=== PATIENT | male | born 1960 | race African-American/Black ===

== ENCOUNTER 2017-03-22 10:21 | Emergency (ER) | payer MEDICARE ==
--- NOTE | 2017-03-22 11:16 | RAD ---
SINGLE VIEW OF THE CHEST: COMPARISON: 03/11/17. HISTORY: Chest pain. FINDINGS: A single view of the chest shows an enlarged but stable cardiomediastinal silhouette. The pacemaker is unchanged in position. There is no evidence of consolidation, mass, or pleural effusion. Degen erative changes are seen in the spine. IMPRESSION: No evidence of acute cardiopulmonary disease. POS: [facility]
[2017-03-22 11:26] LABS: Hematocrit 31.5 % (42.0-52.0); Red Blood Cell (RBC) Count 3.81 mill/uL (4.70-6.10); White Blood Cell (WBC) Count 6.1 thou/uL (4.8-10.8)
[2017-03-22 11:36] LABS: PTT 31.2 SEC (22.9-36.1); Prothrombin Time 17.2 SEC (12.0-14.7)
[2017-03-22 11:44] LABS: Hypochromia SLIGHT = 6-15 cells (100X) (0-5/hpf); Neutrophil 72 % (42-75); Polychromasia SLIGHT = 2-3 cells (100X) (0-2/hpf)
[2017-03-22 11:50] LABS: ALT (SGPT) Less than 7 U/L (8-55); AST (SGOT) 23 U/L (5-34); Alkaline Phosphatase 61 U/L (40-150); Anion Gap 15 mmol/L (10-20); BUN (Urea Nitrogen) 18 mg/dL (8.4-25.7); Bilirubin, Total 1.1 mg/dL (0.2-1.2); CK (CPK) 288 U/L (30-200); Calc. Creatinine Clearance 0 mL/min (70-130); Calcium 9.3 mg/dL (7.8-10.44); Carbon Dioxide 23 mmol/L (22-29); Chloride 105 mmol/L (98-107); Estimated GFR-MDRD 86; Globulin 3.8 g/dL (2.4-3.5); Lipase 16 U/L (8-78); Protein, Total 7.7 g/dL (6.0-8.3)
[2017-03-22 11:55] LABS: Troponin I 0.026 ng/mL (< 0.028)
[2017-03-22] MEDS ORDERED: Acetaminophen 500 MG TAB ONE (12:46)
== END 2017-03-22 12:40 | disposition home or self-care (01) ==
LOC: ERS 10:21
DX: I50.9 Heart failure, unspecified (principal); I20.8 Other forms of angina pectoris; J44.9 Chronic obstructive pulmonary disease, unspecified; E11.9 Type 2 diabetes mellitus without complications; K21.9 Gastro-esophageal reflux disease without esophagitis; F17.220 Nicotine dependence, chewing tobacco, uncomplicated; Z79.84 Long term (current) use of oral hypoglycemic drugs; Z79.899 Other long term (current) drug therapy
CPT/HCPCS: 36415; 71010; 80053; 82550; 82553; 83690; 83880; 84484; 85025; 85610; 85730; 93005

== ENCOUNTER 2017-04-20 10:52 | Inpatient (IN) | payer MEDICARE, OTHER ==
[2017-04-20 11:12] LABS: #Eosinphils 0.1 thou/uL (0.0-0.7); #Lymphocytes 0.9 thou/uL (1.20-3.40); #Monocytes 0.8 thou/uL (0.11-0.59); #Neutrophils 3.5 thou/uL (1.40-6.50); %Basophils 0.5 % (0.0-1.0); %Lymphocytes 17.7 % (21.0-51.0); %Monocytes 14.3 % (0.0-10.0); Hematocrit 36.7 % (42.0-52.0); Mean Platelet Volume 8.9 fL (7.4-10.4); Red Blood Cell (RBC) Count 4.27 mill/uL (4.70-6.10); White Blood Cell (WBC) Count 5.3 thou/uL (4.8-10.8)
--- NOTE | 2017-04-20 11:30 | RAD ---
FRONTAL VIEW CHEST: INDICATION: Chest pain. COMPARISON: 03/22/17. FINDINGS: There is enlargement of the cardiac silhouette with bilateral vascular congestion. Component of a m ild right pleural effusion is not excluded. No significant left effusion or discrete pneumothorax. Left-sided AICD is present with battery pack obscuring the left lower lung zone. IMPRESSION: Findings consistent with congestive heart failure. Correlate clinically. POS: [facility]
[2017-04-20 11:33] LABS: ALT (SGPT) Less than 7 U/L (8-55); AST (SGOT) 18 U/L (5-34); Alkaline Phosphatase 59 U/L (40-150); Anion Gap 12 mmol/L (10-20); BUN (Urea Nitrogen) 15 mg/dL (8.4-25.7); Bilirubin, Total 1.3 mg/dL (0.2-1.2); CK (CPK) 126 U/L (30-200); Calc. Creatinine Clearance 0 mL/min (70-130); Calcium 9.5 mg/dL (7.8-10.44); Carbon Dioxide 24 mmol/L (22-29); Chloride 107 mmol/L (98-107); Estimated GFR-MDRD 86; Globulin 3.8 g/dL (2.4-3.5); Lipase 11 U/L (8-78); Protein, Total 7.8 g/dL (6.0-8.3)
[2017-04-20 11:38] LABS: Troponin I 0.031 ng/mL (< 0.028)
[2017-04-20] MEDS ORDERED: Nitroglycerin 0.4 MG TAB (25 Tab Bottle) ONE (11:41)
[2017-04-20] MEDS ORDERED: Morphine 2 MG/ML SYRINGE ONE (12:20)
[2017-04-20] MEDS ORDERED: Furosemide 40 MG/4 ML VIAL ONE (12:20)
[2017-04-20] MEDS ORDERED: Dextrose 50% Abboject 50 ML SYRINGE SLOW IVP PRN (13:27)
[2017-04-20] MEDS ORDERED: HumaLOG 300 UNITS/3 ML VIAL SC PRN (13:27)
[2017-04-20] MEDS ORDERED: Dextrose 5% in Water 1,000 ML IV PRN (13:27)
[2017-04-20] MEDS: Furosemide 40 MG/4 ML VIAL SLOW IVP SCH (14:29)
[2017-04-20 14:32] VITALS: BMI 31.8
[2017-04-20 15:01] LABS: Troponin I 0.057 ng/mL (< 0.028)
--- NOTE | 2017-04-20 15:26 | HP ---
REASON FOR ADMISSION: CHF exacerbation, chest pain. HISTORY OF PRESENTING ILLNESS: The patient gives history of feeling bad from last 1 week or so. He has been having exertional shortness of breath. The patient also developed retrosternal chest pain with radiation to left upper shoulder. He also mentions that he was hospitalized at [facility] a month back for CHF exacerbation. He states his ejection fraction is around 15%. Mr. Morris states that he is compliant with medications, but not so much with diet. He also uses oxygen at home 2 liters during night. No complaints of palpitations or PND. Currently, he is comfortable at 30 degrees head end elevation on the ER [facility]. No complaints of cough or expectoration. The patient continues to dip tobacco, but does not smoke. PAST MEDICAL AND SURGICAL HISTORY: History of CHF with recent ejection fraction of 15% per patient. He has history of nonischemic cardiomyopathy with AICD, chronic respiratory failure on home oxygen therapy, COPD, obstructive sleep apnea, history of DVT, history of PE, morbid obesity, hypertension, dyslipidemia, chronic anemia, diabetes mellitus type 2, GERD, history of esophageal dilatation x4, colonoscopy, previous cardiac catheterization, surgery for his kidney stones, history of colon resection, and history of polyp removal. CURRENT MEDICATIONS: Lasix 40 mg p.o. daily, lisinopril 20 mg p.o. daily, Protonix 40 mg p.o. daily, digoxin 0.125 mg p.o. daily, glipizide 5 mg p.o. twice daily, Coreg 25 mg twice daily, Ultram 50 mg q.6 hourly p.r.n., [place] p.r.n. for pain, eplerenone 50 mg daily. ALLERGIES: No known drug allergies. PERSONAL HISTORY: Dips tobacco, does not abuse alcohol or drugs. Lives with his . FAMILY HISTORY: Both parents have had history of diabetes and coronary artery disease. Father has history of prostate cancer. Both are living. REVIEW OF SYSTEMS: The following complete review of systems was negative, unless otherwise mentioned in the HPI or below: Constitutional: Weight loss or gain, ability to conduct usual activities. Skin: Rash, itching. Eyes: Double vision, pain. ENT/Mouth: Nose bleeding, neck stiffness, pain, tenderness. Cardiovascular: Palpitations, dyspnea on exertion, orthopnea. Respiratory: Shortness of breath, wheezing, cough, hemoptysis, fever or night sweats. Gastrointestinal: Poor appetite, abdominal pain, heartburn, nausea, vomiting, constipation, or diarrhea. Genitourinary: Urgency, frequency, dysuria, nocturia. Musculoskeletal: Pain, swelling. Neurologic/Psychiatric: Anxiety, depression. Allergy/Immunologic: Skin rash, bleeding tendency. PHYSICAL EXAMINATION: GENERAL: The patient is a 56-year-old male who is currently not in any acute distress. VITAL SIGNS: Blood pressure 124/86, pulse 76 per minute, respiratory rate 20 per minute, temperature 97.7 degrees Fahrenheit, and saturating 93% on room air. NECK: Supple. There is elevated JVD. EYES: Extraocular muscles intact. Pupils reacting to light. ORAL CAVITY: Mucous membranes are moist. No exudates or congestion. CARDIOVASCULAR SYSTEM: S1, S2 heard. Regular rhythm. RESPIRATORY SYSTEM: Air entry 1+ bilateral. Scattered rales plus bilaterally. ABDOMEN: Soft, bowel sounds heard. No tenderness, rigidity or guarding. EXTREMITIES: No peripheral edema or calf tenderness. VASCULAR SYSTEM: Peripheral pulses 1+ bilateral, no ischemic ulcerations or gangrene. CENTRAL NERVOUS SYSTEM: No gross focal deficits seen. Patient is alert, awake , and oriented x3. PSYCHIATRIC SYSTEM: The patient's mood is euthymic. No hallucinations or delusions. LABORATORY DATA AND X-RAY FINDINGS: White count of 5.3, hemoglobin and hematocrit 11 and 36, platelet count is 185, MCV is 86. Digoxin level is 1.40. Albumin is 4.0. Troponin I is indeterminate at 0.03, CK-MB 1.6, BNP is 2171, BUN is 15, creatinine 1.0, glucose 155. Liver enzymes within normal limits. Chest x-ray done shows cardiomegaly with pulmonary vascular congestion. EKG done shows paced rhythm at 83 beats per minute with LBBB. CLINICAL IMPRESSION AND PLAN: The patient will be admitted to telemetry for acute on chronic congestive heart failure exacerbation with systolic dysfunction. Patient has known ejection fraction of around 15%. He will be on Lasix 40 mg IV q.[address] him on small doses of Coreg and lisinopril to accommodate for diuresis. We will continue his glipizide along with Accu-Chek coverage. We will also continue his digoxin, Lipitor, aspirin, eplerenone, vitamin B12, ferrous sulfate, folic acid, and gabapentin as before. Patient was counseled with regards to compliance with diet. We will continue to closely monitor him on telemetry floor. Code status is FULL. MTDD
[2017-04-20 17:57] LABS: Troponin I 0.043 ng/mL (< 0.028)
[2017-04-20] MEDS ORDERED: Nitroglycerin 2% Ointment 1 INCH/1 GM Packet TOP SCH ×2 (18:00)
[2017-04-20] MEDS: Acetaminophen 325 MG TAB PO PRN (18:05)
[2017-04-20] MEDS: Ipratropium Bromide 2.5 ml Neb NEB SCH ×2 (19:22→23:24)
[2017-04-20] MEDS: Famotidine 20 MG TAB PO SCH (20:44)
[2017-04-20] MEDS: Carvedilol 6.25 MG TAB PO SCH (20:44)
[2017-04-20] MEDS ORDERED: Morphine 2 MG/ML SYRINGE SLOW IVP SCH (23:45)
[2017-04-21 05:20] LABS: Anion Gap 12 mmol/L (10-20); BUN (Urea Nitrogen) 13 mg/dL (8.4-25.7); Calc. Creatinine Clearance 119 mL/min (70-130); Calcium 9.3 mg/dL (7.8-10.44); Carbon Dioxide 28 mmol/L (22-29); Chloride 103 mmol/L (98-107); Estimated GFR-MDRD 90
[2017-04-21] MEDS: Furosemide 40 MG/4 ML VIAL SLOW IVP SCH ×2 (05:45→14:18)
[2017-04-21 05:51] LABS: Mean Platelet Volume 9.5 fL (7.4-10.4); Neutrophil 57 % (42-75); Reactive Lymphocytes 3 % (0-10); Red Blood Cell (RBC) Count 4.38 mill/uL (4.70-6.10); White Blood Cell (WBC) Count 5.8 thou/uL (4.8-10.8)
[2017-04-21] MEDS: Ipratropium Bromide 2.5 ml Neb NEB SCH ×5 (06:59→23:24)
[2017-04-21] MEDS: Acetaminophen 325 MG TAB PO PRN (08:43)
[2017-04-21] MEDS: Ferrous Sulfate 325 MG TAB PO SCH (08:44)
[2017-04-21] MEDS ORDERED: HYDROcodone/Acetaminophen 10/325 mg Tablet PO PRN (08:46)
[2017-04-21] MEDS: Potassium Chloride 20 MEQ TAB PO SCH ×2 (08:46→18:12)
[2017-04-21] MEDS: Atorvastatin Calcium 20 MG TAB PO SCH (08:47)
[2017-04-21] MEDS: Carvedilol 6.25 MG TAB PO SCH ×2 (08:47→19:53)
[2017-04-21] MEDS: Cyanocobalamin (Vitamin B-12) 1,000 MCG TAB PO SCH (08:48)
[2017-04-21] MEDS: Digoxin 0.25 MG TAB PO SCH (08:49)
[2017-04-21] MEDS: Enoxaparin Sodium 40 MG/0.4 ML SYRINGE SC SCH (08:50)
[2017-04-21] MEDS: Folic Acid 1 MG TAB PO SCH (08:50)
[2017-04-21] MEDS: Famotidine 20 MG TAB PO SCH ×2 (08:50→19:53)
[2017-04-21] MEDS: Lisinopril 2.5 MG TAB PO SCH (08:51)
[2017-04-21] MEDS: Gabapentin 300 MG CAP PO SCH (08:51)
--- NOTE | 2017-04-21 09:57 | PDOC.PN ---
- Subjective Encounter Start Date: 04/21/17 Encounter Start Time: 08:50 Subjective: has retrosternal burning pain -: no palp or sob - Objective Resuscitation Status: Resuscitation Status FULL:Full Resuscitation MAR Reviewed: Yes Vital Signs & Weight: Vital Signs (12 hours) Temp Pulse Resp BP BP Pulse Ox 04/21/17 08:51 64 04/21/17 08:49 64 04/21/17 08:47 145/76 H 04/21/17 08:40 97.8 F 64 20 145/76 H 98 04/21/17 06:58 100 04/21/17 06:56 69 12 04/21/17 04:00 97.6 F 66 18 112/69 04/20/17 23:23 99 Weight Weight 223 lb I&O: 04/20/17 04/21/17 04/22/17 06:59 06:59 06:59 Intake Total 120 Output Total 1475 Balance -1355 Result Diagrams: 04/21/17 04:18 04/21/17 04:18 Additional Labs: Accuchecks 04/21/17 04/20/17 04/20/17 05:44 20:43 16:37 POC Glucose 102 110 90 Phys Exam - Physical Examination HEENT: PERRLA, moist MMs Neck: no JVD, supple Respiratory: no wheezing rales+ Cardiovascular: RRR, no significant murmur Gastrointestinal: soft, non-tender, positive bowel sounds Musculoskeletal: no edema, pulses present Neurological: non-focal, moves all 4 limbs Psychiatric: A&O x 3 Dx/Plan (1) Acute on chronic systolic CHF (congestive heart failure) Code(s): I50.23 - ACUTE ON CHRONIC SYSTOLIC (CONGESTIVE) HEART FAILURE Status : Acute (2) Chest pain Code(s): R07.9 - CHEST PAIN, UNSPECIFIED Status: Acute Comment: non cardiac , likely due to gerd (3) Anemia, normocytic normochromic Code(s): D64.9 - ANEMIA, UNSPECIFIED Status: Chronic (4) COPD (chronic obstructive pulmonary disease) Status: Chronic Qualifiers: COPD type: chronic bronchitis Chronic bronchitis type: unspecified Qualified Code(s): J42 - Unspecified chronic bronchitis (5) HLD (hyperlipidemia) Code(s): E78.5 - HYPERLIPIDEMIA, UNSPECIFIED Status: Chronic Qualifiers: Hyperlipidemia type: unspecified Qualified Code(s): E78.5 - Hyperlipidemia , unspecified (6) HTN (hypertension) Code(s): I10 - ESSENTIAL (PRIMARY) HYPERTENSION Status: Chronic Qualifiers: Hypertension type: essential hypertension Qualified Code(s): I10 - Essential (primary) hypertension (7) Obesity (BMI 30.0-34.9) Code(s): E66.9 - OBESITY, UNSPECIFIED Status: Chronic - Plan gentle iv diuresis -: dc plan in 24hrs -: pepcid/protonix for retrosternal burning pain -: may give maalox prn -: to amb as tolerated * . Review of Systems - Medications/Allergies Allergies/Adverse Reactions: Allergies Allergy/AdvReac Type Severity Reaction Status Date / Time chicken derived Allergy Verified 09/24/16 07:12 No Known Drug Allergies Allergy Verified 03/11/17 07:49 Medications: Current Medications Acetaminophen (Tylenol) 650 mg PO Q4H PRN PRN Reason: Headache/Fever or Pain Last Admin: 04/21/17 08:43 Dose: 650 mg Hydrocodone Bitart/Acetaminophen ([place] 10/325) 1 tab PO Q6H PRN PRN Reason: PAIN SCAL 1-5 Hydrocodone Bitart/Acetaminophen ([place] 10/325) 2 tab PO Q6H PRN PRN Reason: PAIN SCALE 6-10 Albuterol/Ipratropium (Duoneb) 3 ml NEB [id number] [facility] Last Admin: 04/21/17 06:56 Dose: 3 ml Aspirin (Aspirin Chewable) 81 mg PO DAILY [facility] Last Admin: 04/21/17 08:47 Dose: 81 mg Atorvastatin Calcium (Lipitor) 20 mg PO DAILY [facility] Last Admin: 04/21/17 08:47 Dose: 20 mg Carvedilol (Coreg) 6.25 mg PO BID [facility] Last Admin: 04/21/17 08:47 Dose: 6.25 mg Cyanocobalamin (Vitamin B-12) 1,000 mcg PO DAILY [facility] Last Admin: 04/21/17 08:48 Dose: 1,000 mcg Dextrose/Water (Dextrose 50%) 25 gm SLOW IVP PRN PRN PRN Reason: Hypoglycemia Digoxin (Lanoxin) 0.25 mg PO DAILY [facility] Last Admin: 04/21/17 08:49 Dose: 0.25 mg Enoxaparin Sodium (Lovenox) 40 mg SC 0900 [facility] Last Admin: 04/21/17 08:50 Dose: 40 mg Famotidine (Pepcid) 20 mg PO BID [facility] Last Admin: 04/21/17 08:50 Dose: 20 mg Ferrous Sulfate (Feosol) 325 mg PO QAM-[facility] Last Admin: 04/21/17 08:44 Dose: 325 mg Folic Acid (Folvite) 1 mg PO DAILY [facility] Last Admin: 04/21/17 08:50 Dose: 1 mg Furosemide (Lasix) 40 mg SLOW IVP 0600,1400 [facility] Last Admin: 04/21/17 05:45 Dose: 40 mg Gabapentin (Neurontin) 600 mg PO DAILY [facility] Last Admin: 04/21/17 08:51 Dose: 600 mg Glipizide (Glucotrol Xl) 5 mg PO BID-[facility] Last Admin: 04/21/17 08:45 Dose: 5 mg Glucagon (Glucagon) 1 mg IM PRN PRN PRN Reason: Hypoglycemia Dextrose/Water (D5w) 1,000 mls @ 0 mls/hr IV .Q0M PRN; As Directed PRN Reason: Hypoglycemia Insulin Human Lispro (Humalog) 0 units SC .MODERATE SLIDING SC PRN PRN Reason: Moderate Correctional Scale Ipratropium [place] (Atrovent) 2.5 ml NEB [id number] [facility] Last Admin: 04/21/17 06:59 Dose: Not Given Lisinopril (Zestril) 2.5 mg PO DAILY [facility] Last Admin: 04/21/17 08:51 Dose: 2.5 mg Eplerenone 50 Mg 0 each PO DAILY [facility] Potassium Chloride (K-Dur) 40 meq PO BID-[facility] Last Admin: 04/21/17 08:46 Dose: 40 meq
[2017-04-21] MEDS ORDERED: Mag-Al Plus 1200 MG/1200 MG/120 MG/30 ML UDCUP PO PRN (09:59)
[2017-04-21] MEDS: HYDROcodone/Acetaminophen 10/325 mg Tablet PO PRN (18:13)
[2017-04-22] MEDS: Furosemide 40 MG/4 ML VIAL SLOW IVP SCH (04:58)
[2017-04-22] MEDS: HYDROcodone/Acetaminophen 10/325 mg Tablet PO PRN (04:58)
[2017-04-22] MEDS: Ipratropium Bromide 2.5 ml Neb NEB SCH (06:54)
[2017-04-22] MEDS: Potassium Chloride 20 MEQ TAB PO SCH (08:12)
[2017-04-22] MEDS: Gabapentin 300 MG CAP PO SCH (08:12)
[2017-04-22] MEDS: Ferrous Sulfate 325 MG TAB PO SCH (08:12)
[2017-04-22] MEDS: Atorvastatin Calcium 20 MG TAB PO SCH (08:12)
[2017-04-22] MEDS: Folic Acid 1 MG TAB PO SCH (08:12)
[2017-04-22] MEDS: Carvedilol 6.25 MG TAB PO SCH (08:13)
[2017-04-22] MEDS: Famotidine 20 MG TAB PO SCH (08:13)
[2017-04-22] MEDS: Lisinopril 2.5 MG TAB PO SCH (08:13)
[2017-04-22] MEDS: Cyanocobalamin (Vitamin B-12) 1,000 MCG TAB PO SCH (08:13)
[2017-04-22] MEDS: Enoxaparin Sodium 40 MG/0.4 ML SYRINGE SC SCH (08:14)
[2017-04-22] MEDS: Digoxin 0.25 MG TAB PO SCH (08:14)
--- NOTE | 2017-04-22 10:14 | PDOC.PN ---
- Subjective Encounter Start Date: 04/22/17 Encounter Start Time: 07:45 Subjective: no sob, is amb well - Objective Resuscitation Status: Resuscitation Status FULL:Full Resuscitation MAR Reviewed: Yes Vital Signs & Weight: Vital Signs (12 hours) Temp Pulse Resp BP BP Pulse Ox 04/22/17 08:14 63 04/22/17 08:13 63 124/71 04/22/17 08:00 97.8 F 63 17 124/71 94 L 04/22/17 07:39 100 04/22/17 07:37 68 20 100 04/22/17 04:05 98 04/22/17 04:00 97.9 F 67 18 128/77 04/21/17 23:22 98 Weight Weight 221 lb I&O: 04/21/17 04/22/17 04/23/17 06:59 06:59 06:59 Intake Total 120 1160 Output Total 1475 1850 Balance -0128 -916 Result Diagrams: 04/21/17 04:18 04/21/17 04:18 Additional Labs: Accuchecks 04/22/17 04/21/17 04/21/17 05:11 20:29 17:35 POC Glucose 130 H 120 H 98 04/21/17 11:37 POC Glucose 99 Phys Exam - Physical Examination HEENT: PERRLA, moist MMs Neck: no JVD, supple Respiratory: no wheezing, no rales Cardiovascular: RRR, no significant murmur Gastrointestinal: soft, non-tender, positive bowel sounds Musculoskeletal: no edema, pulses present Neurological: non-focal, moves all 4 limbs Psychiatric: A&O x 3 Dx/Plan (1) Acute on chronic systolic CHF (congestive heart failure) Code(s): I50.23 - ACUTE ON CHRONIC SYSTOLIC (CONGESTIVE) HEART FAILURE Status : Acute (2) Chest pain Code(s): R07.9 - CHEST PAIN, UNSPECIFIED Status: Acute Comment: non cardiac , likely due to gerd (3) Anemia, normocytic normochromic Code(s): D64.9 - ANEMIA, UNSPECIFIED Status: Chronic (4) COPD (chronic obstructive pulmonary disease) Status: Chronic Qualifiers: COPD type: chronic bronchitis Chronic bronchitis type: unspecified Qualified Code(s): J42 - Unspecified chronic bronchitis (5) HLD (hyperlipidemia) Code(s): E78.5 - HYPERLIPIDEMIA, UNSPECIFIED Status: Chronic Qualifiers: Hyperlipidemia type: unspecified Qualified Code(s): E78.5 - Hyperlipidemia , unspecified (6) HTN (hypertension) Code(s): I10 - ESSENTIAL (PRIMARY) HYPERTENSION Status: Chronic Qualifiers: Hypertension type: essential hypertension Qualified Code(s): I10 - Essential (primary) hypertension (7) Obesity (BMI 30.0-34.9) Code(s): E66.9 - OBESITY, UNSPECIFIED Status: Chronic - Plan hemostable -: counselled reg dietary and fluid restrictions -: dc pt home -: to f/u with heart failure clinic * .
[2017-04-22 11:11] VITALS: BP 131/76; TEMP 97.7
--- NOTE | 2017-04-23 02:55 | DIS ---
DATE OF ADMISSION: 04/20/2017 DATE OF DISCHARGE: 04/22/2017 DISCHARGE DISPOSITION: To home. PRIMARY DISCHARGE DIAGNOSES: Acute congestive heart failure exacerbation with systolic dysfunction, chest pain, which is noncardiac. SECONDARY DISCHARGE DIAGNOSES: Chronic anemia, chronic obstructive pulmonary disease, dyslipidemia, hypertension, obesity. PROCEDURES DONE DURING HOSPITALIZATION: Chest x-ray done on the day of admission showed cardiomegal y with pulmonary vascular congestion, hemoglobin and hematocrit of 11 and 38, platelet count 204. T roponin I was indeterminate with peaking up to 0.05, CK-MB 1.6, BUN 15, creatinine 1.0. BNP was 217 1. Albumin was 4.0. Digoxin level is 1.40. DISCHARGE MEDICATIONS: Coreg 25 mg p.o. twice daily, digoxin 0.125 mg p.o. daily, eplerenone 50 mg p.o. daily, Lasix 40 mg p.o. daily, [place] p.r.n. for pain, lisinopril 20 mg p.o. daily, Protonix 40 mg p.o. daily, glipizide extended release 5 mg p.o. twice daily. ALLERGIES: Allergic to CHICKEN. DISCHARGE PLAN: Patient to follow up with primary care physician in 1 week. He also needs to follo w up with Heart Failure Clinic as advised. BRIEF COURSE DURING HOSPITALIZATION: The patient was initially got admitted on the 04/20/2017, with complaints of chest pain and shortness of breath. The shortness of breath was exertional. He has known history of ejection fraction of around 15%. The patient has had recurrent hospitalizations fo r CHF exacerbation due to noncompliance with diet. He was gently diuresed during his stay here. Pr ior to discharge, he is ambulating and eating well. He was counseled with regards to fluid restrict ion and salt free diet. He is ambulating well with no exertional shortness of breath. On the day o f discharge, patient needs to follow up with Heart Failure Clinic as advised and primary care physic dev in one week. Please see a face to face documentation on [employer] for the day of discharge.
== END 2017-04-22 11:36 | disposition home or self-care (01) | DRG 292 ==
LOC: ERS 10:52 → 2NO 12:15
PROVIDERS: ADMIT Internal Medicine; ATTEND Internal Medicine
DX: I11.0 Hypertensive heart disease with heart failure (principal); J96.11 Chronic respiratory failure with hypoxia; Z99.81 Dependence on supplemental oxygen; E66.01 Morbid (severe) obesity due to excess calories; E78.5 Hyperlipidemia, unspecified; D64.9 Anemia, unspecified; E11.9 Type 2 diabetes mellitus without complications; F17.220 Nicotine dependence, chewing tobacco, uncomplicated; I25.5 Ischemic cardiomyopathy; Z95.810 Presence of automatic (implantable) cardiac defibrillator; G47.33 Obstructive sleep apnea (adult) (pediatric); Z86.718 Personal history of other venous thrombosis and embolism; Z86.711 Personal history of pulmonary embolism; Z68.30 Body mass index [BMI] 30.0-30.9, adult; K21.9 Gastro-esophageal reflux disease without esophagitis; Z90.49 Acquired absence of other specified parts of digestive tract; I50.23 Acute on chronic systolic (congestive) heart failure; R07.89 Other chest pain; Z91.018 Allergy to other foods; J42 Unspecified chronic bronchitis
CPT/HCPCS: 36415; 36416; 71010; 80048; 80053; 80162; 82550; 82553; 83690; 83880; 84484; 85025; 93005; 93798; 94640; 94760; 96374; 96375; J1650; J1940; J2270; J7620; J7644

== ENCOUNTER 2017-05-11 12:33 | Emergency (ER) | payer MEDICARE ==
[2017-05-11 13:19] LABS: #Eosinphils 0.1 thou/uL (0.0-0.7); #Lymphocytes 1.1 thou/uL (1.20-3.40); #Monocytes 0.6 thou/uL (0.11-0.59); #Neutrophils 3.1 thou/uL (1.40-6.50); %Basophils 0.5 % (0.0-1.0); %Eosinophils 1.1 % (0.0-10.0); %Lymphocytes 22.8 % (21.0-51.0); %Monocytes 12.3 % (0.0-10.0); Hematocrit 41.6 % (42.0-52.0); Mean Platelet Volume 10.1 fL (7.4-10.4); Red Blood Cell (RBC) Count 4.59 mill/uL (4.70-6.10)
[2017-05-11 13:39] LABS: ALT (SGPT) 17 U/L (8-55); AST (SGOT) 49 U/L (5-34); Alkaline Phosphatase 71 U/L (40-150); Anion Gap 16 mmol/L (10-20); BUN (Urea Nitrogen) 17 mg/dL (8.4-25.7); CK (CPK) 173 U/L (30-200); Calc. Creatinine Clearance 0 mL/min (70-130); Calcium 9.3 mg/dL (7.8-10.44); Carbon Dioxide 22 mmol/L (22-29); Chloride 105 mmol/L (98-107); Estimated GFR-MDRD Greater than 90; Globulin 4.1 g/dL (2.4-3.5); Protein, Total 8.2 g/dL (6.0-8.3)
[2017-05-11 13:44] LABS: Troponin I 0.045 ng/mL (< 0.028)
--- NOTE | 2017-05-11 14:24 | RAD ---
SINGLE VIEW OF THE CHEST 05/11/17 COMPARISON: 04/20/17 HISTORY: Pacemaker malfunction. FINDINGS: Single view of the chest shows an enlarged but stable cardiomediastinal silhouette. The pacemaker is unchanged in position. There is no evidence of consolidation, mass or pleural effusion. IMPRESSION: No evidence of acute cardiopulmonary disease. POS: [facility]
[2017-05-11] MEDS ORDERED: traMADol HCl 50 MG TAB ONE (14:51)
== END 2017-05-11 14:59 | disposition home or self-care (01) ==
LOC: ERS 12:33
DX: Z45.018 Encounter for adjustment and management of other part of cardiac pacemaker (principal); Z71.6 Tobacco abuse counseling; F17.220 Nicotine dependence, chewing tobacco, uncomplicated; J44.9 Chronic obstructive pulmonary disease, unspecified; I50.9 Heart failure, unspecified; E11.9 Type 2 diabetes mellitus without complications; K21.9 Gastro-esophageal reflux disease without esophagitis
CPT/HCPCS: 71010; 80053; 82550; 82553; 84484; 85025; 93005; 99406

== ENCOUNTER 2017-05-17 09:25 | Emergency (ER) | payer MEDICARE ==
[2017-05-17 10:09] LABS: #Eosinphils 0.1 thou/uL (0.0-0.7); #Monocytes 0.8 thou/uL (0.11-0.59); #Neutrophils 4.5 thou/uL (1.40-6.50); %Basophils 0.4 % (0.0-1.0); %Eosinophils 1.1 % (0.0-10.0); %Lymphocytes 15.3 % (21.0-51.0); %Monocytes 12.9 % (0.0-10.0); Hematocrit 37.9 % (42.0-52.0); Mean Platelet Volume 9.4 fL (7.4-10.4); Red Blood Cell (RBC) Count 4.12 mill/uL (4.70-6.10); White Blood Cell (WBC) Count 6.3 thou/uL (4.8-10.8)
[2017-05-17 10:16] LABS: PTT 32.7 SEC (22.9-36.1); Prothrombin Time 17.2 SEC (12.0-14.7)
--- NOTE | 2017-05-17 10:27 | RAD ---
CHEST 1 VIEW: Date: 05/17/17 HISTORY: Chest pain. COMPARISON: 05/11/17. FINDINGS: Cardiac silhouette is magnified and enlarged. Pulmonary vasculature is more engorged with increasing patchy bibasilar infiltrates. Mediastinum is midline with multilead left subclavian cardiac electroni c device. case monitor leads overlie the chest. IMPRESSION: Cardiomegaly. Increasing pulmonary vascular congestion. POS: [facility]
[2017-05-17 10:31] LABS: ALT (SGPT) 11 U/L (8-55); AST (SGOT) 22 U/L (5-34); Alkaline Phosphatase 68 U/L (40-150); Anion Gap 12 mmol/L (10-20); BUN (Urea Nitrogen) 19 mg/dL (8.4-25.7); Bilirubin, Total 1.4 mg/dL (0.2-1.2); CK (CPK) 193 U/L (30-200); Calc. Creatinine Clearance 0 mL/min (70-130); Calcium 9.3 mg/dL (7.8-10.44); Carbon Dioxide 25 mmol/L (22-29); Chloride 104 mmol/L (98-107); Estimated GFR-MDRD 76; Globulin 3.7 g/dL (2.4-3.5); Lipase 14 U/L (8-78); Protein, Total 7.7 g/dL (6.0-8.3)
[2017-05-17 10:34] LABS: Troponin I 0.025 ng/mL (< 0.028)
[2017-05-17] MEDS ORDERED: Morphine 4 MG/ML VIAL ONE (11:10)
[2017-05-17] MEDS ORDERED: Lidocaine Viscous Sol 2% 15 ml UD Cup ONE (11:10)
[2017-05-17] MEDS ORDERED: Mag-Al 1200 mg/1200 mg/30 ML UDCUP ONE (11:10)
--- NOTE | 2017-06-08 15:32 | EKG ---
Test Reason : Blood Pressure : / mmHG Vent. Rate : 070 BPM Atrial Rate : 070 BPM P-R Int : 248 ms QRS Dur : 124 ms QT Int : 400 ms P-R-T Axes : 104 -56 116 degrees QTc Int : 432 ms Sinus rhythm with 1st degree A-V block with Premature atrial complexes with Abberant conduction Left axis deviation Septal infarct , age undetermined Abnormal ECG Confirmed by PURNIMA BASSETT D.O. ([id number]), editor newspaper [employer] [facility] ([id number]) on 06/08/2017 3:32:14 PM Referred By: Confirmed By:PURNIMA BASSETT D.O.
== END 2017-05-17 12:16 | disposition home or self-care (01) ==
LOC: ERS 09:25
DX: R10.13 Epigastric pain (principal); J44.9 Chronic obstructive pulmonary disease, unspecified; I50.9 Heart failure, unspecified; E11.9 Type 2 diabetes mellitus without complications; K21.9 Gastro-esophageal reflux disease without esophagitis; F17.220 Nicotine dependence, chewing tobacco, uncomplicated; Z79.84 Long term (current) use of oral hypoglycemic drugs; Z79.899 Other long term (current) drug therapy
CPT/HCPCS: 36415; 71010; 80053; 82553; 83690; 83880; 84484; 85025; 85610; 85730; 93005; 94760; 96374; J2270

== ENCOUNTER 2017-05-31 14:22 | Observation (INO) | payer MEDICARE ==
[2017-05-31 15:09] LABS: #Eosinphils 0.1 thou/uL (0.0-0.7); #Lymphocytes 1.4 thou/uL (1.20-3.40); #Neutrophils 5.3 thou/uL (1.40-6.50); %Basophils 0.5 % (0.0-1.0); %Eosinophils 1.1 % (0.0-10.0); %Lymphocytes 17.9 % (21.0-51.0); %Monocytes 12.8 % (0.0-10.0); Hematocrit 38.2 % (42.0-52.0); Red Blood Cell (RBC) Count 4.16 mill/uL (4.70-6.10); White Blood Cell (WBC) Count 7.8 thou/uL (4.8-10.8)
[2017-05-31 15:14] LABS: Bilirubin Small (Negative); Blood, Urine Negative (Negative); Glucose, Urine (Dipstick) Negative (Negative); Ketone, Urine Negative (Negative); Nitrite Negative (Negative); Protein, Urine (Dipstick) Negative (Neg-Trace)
[2017-05-31 15:35] LABS: Troponin I 0.042 ng/mL (< 0.028)
[2017-05-31 15:37] LABS: ALT (SGPT) 7 U/L (8-55); AST (SGOT) 23 U/L (5-34); Alkaline Phosphatase 72 U/L (40-150); BUN (Urea Nitrogen) 16 mg/dL (8.4-25.7); Bilirubin, Total 0.7 mg/dL (0.2-1.2); CK (CPK) 126 U/L (30-200); Calc. Creatinine Clearance 0 mL/min (70-130); Calcium 9.3 mg/dL (7.8-10.44); Carbon Dioxide 20 mmol/L (22-29); Chloride 108 mmol/L (98-107); Estimated GFR-MDRD Greater than 90; Globulin 3.8 g/dL (2.4-3.5); Lipase 16 U/L (8-78); Protein, Total 7.7 g/dL (6.0-8.3)
[2017-05-31 15:40] LABS: Anion Gap 12 mmol/L (10-20)
[2017-05-31] MEDS ORDERED: Morphine 4 MG/ML VIAL ONE (15:50)
[2017-05-31] MEDS ORDERED: Ondansetron HCl/PF 4 MG/2 ML Vial ONE (16:06)
--- NOTE | 2017-05-31 16:23 | RAD ---
CHEST TWO VIEWS 05/31/17 HISTORY: Chest and abdomen pain. COMPARISON: 01/26/17. FINDINGS: The cardiac silhouette and pulmonary vasculature remain upper limits of normal. Mediastinum is midlin e with a multilead left subclavian cardiac electronic device. There is no confluent air space consoli dation, pneumothorax or evidence of free subdiaphragmatic gas. Ossification of the anterior longitudi nal ligament of the thoracic spine on the lateral view is consistent with diffuse idiopathic skeletal hyperostosis. IMPRESSION: Borderline cardiomegaly and pulmonary vascular congestion, stable. POS: [facility]
--- NOTE | 2017-05-31 17:24 | CT ---
CT OF ABDOMEN AND PELVIS PERFORMED WITHOUT CONTRAST ENHANCEMENT: 05/31/17 HISTORY: Abdominal pain, worsening for the past week. The lung bases shows some atelectatic change within the right base. The liver, spleen, pancreas and gallbladder regions appear unremarkable given the limitations of a no ncontrast exam. Right and left adrenal glands and right and left kidneys are normal in size. Hypodensity involving th e left kidney is statistically most likely a cyst. There is a couple of very faint densities seen wit hin the right kidney potentially very tiny stones. There is no signs of obstruction. There is no sign ificant periaortic or mesenteric adenopathy. No evidence of obstruction. CT OF PELVIS PERFORMED WITHOUT CONTRAST ENHANCEMENT: The appendix is normal. There is no evidence of any significant adenopathy, mass or free fluid. Prost ate is mildly prominent. Review of osseous structures showed no lytic or blastic bone lesions. IMPRESSION: 1. No acute abnormalities of the abdomen or pelvis. 2. Hypodensity involving the left kidney which appears to represent an exophytic cyst. There is a questionable tiny nonobstructing right renal calculi present. POS: [facility]
[2017-05-31 18:47] LABS: Troponin I 0.052 ng/mL (< 0.028)
[2017-05-31] MEDS ORDERED: Ondansetron ODT 4 MG TAB SL PRN (19:09)
[2017-05-31] MEDS ORDERED: Ondansetron HCl/PF 4 MG/2 ML Vial IVP PRN (19:09)
[2017-05-31] MEDS ORDERED: Ondansetron HCl/PF 4 MG/2 ML Vial SLOW IVP PRN (20:33)
[2017-05-31] MEDS ORDERED: Ondansetron ODT 4 MG TAB PO PRN (20:33)
[2017-05-31] MEDS ORDERED: Acetaminophen 325 MG TAB PO PRN (20:33)
[2017-05-31] MEDS ORDERED: Mag-Al 1200 mg/1200 mg/30 ML UDCUP PO PRN (20:33)
[2017-05-31] MEDS ORDERED: Dextrose 5% in Water 1,000 ML IV PRN (20:34)
[2017-05-31] MEDS ORDERED: Dextrose 50% Abboject 50 ML SYRINGE IVP PRN (20:34)
[2017-05-31] MEDS ORDERED: HumaLOG 300 UNITS/3 ML VIAL SC PRN (20:34)
[2017-05-31] MEDS ORDERED: PROVENTIL INHALER 6.7 G (200 INHALATIONS) INH PRN (20:34)
[2017-05-31] MEDS ORDERED: Furosemide 40 MG/4 ML VIAL SLOW IVP SCH (20:45)
[2017-05-31] MEDS: HYDROcodone/Acetaminophen 10/325 mg Tablet PO PRN (21:31)
[2017-05-31] MEDS: traZODone HCl 50 MG TAB PO SCH (21:32)
[2017-05-31] MEDS: Potassium Chloride 10 MEQ TAB PO SCH (21:32)
[2017-05-31] MEDS: Carvedilol 25 MG TAB PO SCH (21:32)
[2017-05-31] MEDS: Latanoprost 0.005% Ophth Soln 2.5 ml Bottle EA EYE SCH (21:33)
[2017-05-31 21:35] LABS: Troponin I 0.039 ng/mL (< 0.028)
[2017-06-01] MEDS: Potassium Chloride 10 MEQ TAB PO SCH ×2 (08:07→20:48)
[2017-06-01] MEDS: Digoxin 0.125 MG TAB PO SCH (08:07)
[2017-06-01] MEDS: Lisinopril 20 MG TAB PO SCH (08:08)
[2017-06-01] MEDS: Carvedilol 25 MG TAB PO SCH ×2 (08:08→20:47)
[2017-06-01] MEDS: Furosemide 40 MG TAB PO SCH (08:08)
[2017-06-01] MEDS: HYDROcodone/Acetaminophen 10/325 mg Tablet PO PRN ×2 (08:08→22:31)
[2017-06-01] MEDS: Gabapentin 300 MG CAP PO SCH (08:08)
[2017-06-01] MEDS: Enoxaparin Sodium 40 MG/0.4 ML SYRINGE SC SCH (08:09)
[2017-06-01 12:45] LABS: Anion Gap 9 mmol/L (10-20); BUN (Urea Nitrogen) 15 mg/dL (8.4-25.7); Calc. Creatinine Clearance 118 mL/min (70-130); Calcium 9.4 mg/dL (7.8-10.44); Carbon Dioxide 29 mmol/L (22-29); Chloride 102 mmol/L (98-107); Estimated GFR-MDRD 83
[2017-06-01] MEDS ORDERED: Morphine PF 1 MG/ML SYR IVP SCH (13:30)
[2017-06-01] MEDS ORDERED: Lidocaine 2% Viscous Solution 10 ML, Aluminum & Magnesium Hydroxide 30 ML SSW SCH ×2 (13:30)
[2017-06-01] MEDS ORDERED: Furosemide 20 MG TAB PO SCH (14:00)
[2017-06-01] MEDS ORDERED: Furosemide 40 MG/4 ML VIAL IVP SCH (16:00)
--- NOTE | 2017-06-01 16:35 | CON ---
DATE OF CONSULTATION: 06/01/2017 REASON FOR CONSULTATION: Acute on chronic systolic heart failure. PRIMARY CHILDREN'S LIBRARIAN: Braxton Bradford M.D. HISTORY OF PRESENT ILLNESS: Mr. Morris is a pleasant 56-year-old gentleman, main complaint is abdo yris distention. He has a history of cardiomyopathy and has also been followed at [facility]. He had a recent PE. He was last seen by Dr. Braxton Bradford the end of 03/2017. He also states he jasso s had PND, orthopnea, and 4-pound of weight gain. He states he has been diligent on his fluid restri ction but did have a dietary indiscretion over . He received IV Lasix and has improved. PAST MEDICAL HISTORY: Cardiomyopathy, hypertension, diabetes mellitus, COPD, previous PE, obesity, c olon resection. SOCIAL HISTORY: No current alcohol use. He does chew tobacco. ALLERGIES: None. HOME MEDICATIONS: Lisinopril, digoxin, gabapentin, iron sulfate, Nexium, Lasix, and Folvite. REVIEW OF SYSTEMS: A ten-point review of systems is reviewed and as above, otherwise negative. PHYSICAL EXAMINATION: VITAL SIGNS: Blood pressure 105/61, pulse 63, temperature 98.7. GENERAL: The patient is a pleasant male/female who is in no acute distress. The patient appears his stated age. NEUROLOGIC: The patient is alert and oriented x3 with no focal neurologic deficits. HEENT: Sclerae without icterus. Mouth has moist mucous membranes with normal pallor. NECK: No JVD. Carotid upstroke brisk. No bruits bilaterally. LUNGS: Clear to auscultation with unlabored respirations. BACK: No scoliosis or kyphosis. CARDIAC: Regular rate and rhythm with normal S1 and S2. No S3 or S4 noted. No significant rubs, mu rmurs, thrills, or gallops noted throughout the precordium. PMI is not displaced. There is no yoseph ternal heave. ABDOMEN: Soft, nontender, nondistended. No peritoneal signs present. No hepatosplenomegaly. No ab normal striae. EXTREMITIES: 2+ femoral and 2+ dorsalis pedis pulses. No cyanosis, clubbing, or edema. SKIN: No gross abnormalities. PERTINENT LABORATORIES: Hemoglobin 12. Creatinine 1.12. Peak troponin 0.052. BNP of 1483. IMPRESSION: 1. Acute on chronic systolic heart failure. 2. History of pulmonary embolism. RECOMMENDATIONS: 1. Continue carvedilol 25 b.i.d. 2. Will give additional dose of IV Lasix. He is currently on p.o. Lasix. 3. Continue lisinopril for afterload reduction and may consider digoxin.
[2017-06-01] MEDS ORDERED: EPLERENONE 50 MG PO SCH (17:00)
[2017-06-01] MEDS: Latanoprost 0.005% Ophth Soln 2.5 ml Bottle EA EYE SCH (20:48)
[2017-06-01] MEDS: traZODone HCl 50 MG TAB PO SCH (20:48)
--- NOTE | 2017-06-01 22:21 | HP ---
DATE OF ADMISSION: 05/31/2017 CHIEF COMPLAINT: Shortness of breath, chest pain, abdominal pain. HISTORY OF PRESENT ILLNESS: Mr. Morris is a 56-year-old -Sammarinese male with past medical hi story of severe cardiomyopathy with decreased LV function with an ejection fraction of 15%, who came because of the above complaint. The patient states he has abdominal pain in the epigastric area and right upper quadrant and some chest discomfort as well and feeling short of breath. The patient alesha dominguez has chronic left-sided abdominal pain, but this time, he has right sided. The patient used to se e me 2 years ago. He went to [facility] 2 years ago. He has been seeing doctors at [place] and [facility] as well as in [place] for the last 2 years. He was admitted a few times in the hospital with the hospitalist for similar problems, so the patient states for the last few days, he h as been having these problems which were getting worse, so decided to come to the hospital. Now in [facility] ER, the patient was evaluated and found to have CHF as well as abdominal pain. CT scan of the abd omen was done, which was unremarkable. He is admitted for further evaluation and management. PAST MEDICAL HISTORY: 1. Hypertension. 2. Diabetes mellitus. 3. Nonischemic cardiomyopathy with decreased LV function with an ejection fraction of 15%. 4. History of COPD. 5. History of chronic respiratory failure, on home oxygen. 6. History of DVT and PE, not on Coumadin now. 7. Hyperlipidemia. 8. Gastroesophageal reflux disease. PAST SURGICAL HISTORY: Status post AICD placement. CURRENT MEDICATIONS: The patient is on [place] p.r.n., albuterol inhaler two puffs q.i.d. p.r.n., Core g 25 b.i.d., digoxin 0.125 mg daily, Lasix 40 mg daily and 20 mg at 2 p.m., Neurontin 600 mg daily, g lipizide 5 mg b.i.d., latanoprost eyedrops 1 drop each eye in the night, lisinopril 20 mg daily, Prot dusty 40 mg daily, eplerenone 1 tablet daily, potassium chloride 10 mEq, trazodone 50 mg at bedtime. ALLERGIES: NKDA. FAMILY HISTORY: Nothing contributory. SOCIAL HISTORY: The patient lives with family. No history of smoking, but dips tobacco, history of alcohol intake. REVIEW OF SYSTEMS: Cardiovascular: Had chest pain and shortness of breath. Respiratory: No fever or cough. Gastrointestinal: Abdominal pain and some nausea, no vomiting. Central Nervous System: No headache, no dizziness. PHYSICAL EXAMINATION: GENERAL: The patient is alert, awake, oriented x3. VITAL SIGNS: Temperature 98, pulse 65, respirations 20, blood pressure 113/70. HEENT: Head is normocephalic, atraumatic. Pupils are equal and reactive to light. Nasopharynx is p jeannie and dry. Hard and soft palate, no lesions. SKIN: Skin turgor is decreased. NECK: Supple. No JVD. LUNGS: Bilateral air entry present, no rales, no rhonchi. CARDIAC: S1, S2 regular. ABDOMEN: Soft, mildly and diffusely tender in the epigastrium and upper quadrant and lower quadrants . No guarding, no rigidity. Bowel sounds present. RECTAL: Deferred. NEUROLOGIC: No focal deficits. LABORATORY DATA AND X-RAY FINDINGS: CBC shows WBC 7.8, hemoglobin 12, hematocrit 38, platelets 194. Metabolic panel: Sodium 136, potassium 4, chloride 102, CO2 29, BUN 15, creatinine 1.1, glucose 151 . Troponin I 0.052. Chest x-ray, borderline cardiomegaly with some pulmonary vascular congestion. CT of the abdomen and pelvis unremarkable. EKG shows normal sinus rhythm with PVCs. No acute ST-T c hanges seen. ASSESSMENT: 1. Chest pain, rule out myocardial infarction. 2. Abdominal pain. 3. Acute on chronic congestive heart failure, systolic. 4. Nonischemic cardiomyopathy, severe with decreased left ventricular function with an ejection frac tion of 15%. 5. Hypertension. 6. Diabetes mellitus. 7. Chronic obstructive pulmonary disease. 8. Chronic respiratory failure, on home oxygen. PLAN: 1. Vital signs q. 4 hours. 2. Activity: As tolerated. 3. Allergies: NKDA. 4. Hep-Lock. 5. Troponin q. 8 hours x2. 6. Continue home medications including morphine p.r.n. 7. Diet: Cardiac. 8. Cardiology consult.
[2017-06-02] MEDS: HYDROcodone/Acetaminophen 10/325 mg Tablet PO PRN ×2 (04:24→08:05)
[2017-06-02] MEDS: Potassium Chloride 10 MEQ TAB PO SCH (08:04)
[2017-06-02] MEDS: Digoxin 0.125 MG TAB PO SCH (08:04)
[2017-06-02] MEDS: Gabapentin 300 MG CAP PO SCH (08:05)
[2017-06-02] MEDS: Carvedilol 25 MG TAB PO SCH (08:05)
[2017-06-02] MEDS: Furosemide 40 MG TAB PO SCH (08:05)
[2017-06-02] MEDS: Enoxaparin Sodium 40 MG/0.4 ML SYRINGE SC SCH (08:06)
[2017-06-02] MEDS: Lisinopril 20 MG TAB PO SCH (08:10)
[2017-06-02] MEDS ORDERED: EPLERENONE 50 MG PO SCH (09:00)
[2017-06-02] MEDS ORDERED: Furosemide 40 MG/4 ML VIAL SLOW IVP SCH (12:00)
[2017-06-02 12:42] VITALS: BP 113/74; TEMP 98.3
--- NOTE | 2017-06-03 14:30 | DIS ---
DATE OF ADMISSION: 05/31/2017 DATE OF DISCHARGE: 06/02/2017 ADMITTING DIAGNOSES: 1. Chest pain, rule out myocardial infarction. 2. Abdominal pain. 3. Acute on chronic systolic heart failure. 4. Nonischemic cardiomyopathy. 5. Severe decrease in left ventricular function with ejection fraction of 15%. 6. Hypertension. 7. Diabetes mellitus. 8. Chronic obstructive pulmonary disease, chronic respiratory failure, on home oxygen. FINAL DIAGNOSES: 1. Chest pain. No evidence of acute myocardial infarction. 2. Acute on chronic systolic heart failure, improved. 3. Abdominal pain, resolved. 4. Hypertension. 5. Nonischemic cardiomyopathy. 6. Chronic obstructive pulmonary disease with chronic respiratory failure, on home oxygen. BRIEF SUMMARY OF HOSPITAL COURSE: Mr. Morris is a 56-year-old -Citizen [place] male admitted formerly [facility] of abdominal pain and chest pain and shortness of breath. The patient was in acute CHF, systolic heart failure and he was started on home medications including Lasix daily. Abdominal pain resolved the next day with morphine. Serial cardiac enzymes are within normal limits. Cardiology consult was done. The patient was seen by Dr. Vick Dean. Continue IV Lasix and Coreg was continued. H e suggested he may consider digoxin, but the patient much improved and he wanted to go home, so he is being discharged home. At the time of discharge, he was stable. His vital signs were stable. Lung s clear. Abdomen soft. DISCHARGE MEDICATIONS: Include glipizide 5 mg b.i.d., lisinopril 20 mg daily, Coreg 25 b.i.d., epler enone 50 mg daily, Protonix 40 mg daily, [place] p.r.n., Lasix 40 mg daily, digoxin 125 mcg daily, KCL 10 mEq b.i.d., albuterol inhaler q.i.d. p.r.n., gabapentin 600 mg daily, trazodone 50 at bedtime, Las ix 20 daily. FOLLOWUP: The patient will come for followup in 2 weeks.
== END 2017-06-02 14:33 | disposition home or self-care (01) ==
LOC: ERS 14:22 → 2SW 19:04
PROVIDERS: ADMIT Internal Medicine; ATTEND Internal Medicine
DX: R07.89 Other chest pain (principal); R10.9 Unspecified abdominal pain; I11.0 Hypertensive heart disease with heart failure; I50.23 Acute on chronic systolic (congestive) heart failure; I42.8 Other cardiomyopathies; E11.9 Type 2 diabetes mellitus without complications; J44.9 Chronic obstructive pulmonary disease, unspecified; J96.10 Chronic respiratory failure, unspecified whether with hypoxia or hypercapnia; E78.5 Hyperlipidemia, unspecified; K21.9 Gastro-esophageal reflux disease without esophagitis; F17.220 Nicotine dependence, chewing tobacco, uncomplicated; Z91.018 Allergy to other foods; Z79.84 Long term (current) use of oral hypoglycemic drugs; Z79.899 Other long term (current) drug therapy; Z99.81 Dependence on supplemental oxygen
CPT/HCPCS: 71020; 74176; 80048; 80053; 81003; 82550; 82553; 82962 ×3; 83690; 83880; 84484 ×2; 85025; 93005; 96372 ×2; 96374; 96375 ×2; 96376 ×2; 99285; G0378; 36415; 36416; J1650; J1940; J2270; J2274; J2405; Q0162

== ENCOUNTER 2017-06-17 13:22 | Emergency (ER) | payer MEDICARE ==
--- NOTE | 2017-06-17 13:55 | RAD ---
CHEST ONE VIEW: HISTORY: Chest pain. COMPARISON: 06/08/2017 FINDINGS: Cardiac silhouette is magnified and enlarged. Pulmonary vasculature is slightly more engorged than o n the prior study and is accentuated by shallow inspiration. Mediastinum is midline with multi-lead left subclavian cardiac electronic device. No lobar consolidation or pneumothorax are evident. IMPRESSION: Cardiomegaly. Mild pulmonary vascular congestion. POS: [facility]
[2017-06-17 14:48] LABS: #Lymphocytes 1.2 thou/uL (1.20-3.40); #Monocytes 0.8 thou/uL (0.11-0.59); #Neutrophils 4.6 thou/uL (1.40-6.50); %Basophils 0.2 % (0.0-1.0); %Eosinophils 0.5 % (0.0-10.0); %Lymphocytes 17.7 % (21.0-51.0); %Monocytes 12.1 % (0.0-10.0); Hematocrit 42.8 % (42.0-52.0); Mean Platelet Volume 9.8 fL (7.4-10.4); Red Blood Cell (RBC) Count 4.69 mill/uL (4.70-6.10); White Blood Cell (WBC) Count 6.6 thou/uL (4.8-10.8)
[2017-06-17 15:12] LABS: ALT (SGPT) 11 U/L (8-55); AST (SGOT) 24 U/L (5-34); Alkaline Phosphatase 70 U/L (40-150); Anion Gap 12 mmol/L (10-20); BUN (Urea Nitrogen) 19 mg/dL (8.4-25.7); Bilirubin, Total 0.8 mg/dL (0.2-1.2); CK (CPK) 173 U/L (30-200); Calc. Creatinine Clearance 0 mL/min (70-130); Calcium 9.8 mg/dL (7.8-10.44); Carbon Dioxide 26 mmol/L (22-29); Chloride 104 mmol/L (98-107); Estimated GFR-MDRD 83; Globulin 4.1 g/dL (2.4-3.5); Protein, Total 8.2 g/dL (6.0-8.3)
[2017-06-17 15:17] LABS: Troponin I 0.061 ng/mL (< 0.028)
[2017-06-17] MEDS ORDERED: Ondansetron HCl/PF 4 MG/2 ML Vial ONE (16:46)
[2017-06-17] MEDS ORDERED: Morphine 4 MG/ML VIAL ONE ×2 (17:02→17:40)
--- NOTE | 2017-07-17 14:38 | EKG ---
Test Reason : Blood Pressure : / mmHG Vent. Rate : 103 BPM Atrial Rate : 103 BPM P-R Int : 214 ms QRS Dur : 128 ms QT Int : 340 ms P-R-T Axes : 051 -65 082 degrees QTc Int : 445 ms Sinus tachycardia with 1st degree A-V block with occasional Premature ventricular complexes and Fusio n complexes Left axis deviation Non-specific intra-ventricular conduction block Possible Inferior infarct , age undetermined Possible Anterolateral infarct , age undetermined Abnormal ECG Confirmed by AYE ARROYO MD ([id number]), assistant film editor [employer] [facility] ([id number]) on 07/17/2017 2:38:12 PM Referred By: Confirmed By:AYE ARROYO MD
== END 2017-06-17 17:48 | disposition home or self-care (01) ==
LOC: ERS 13:22
DX: R07.9 Chest pain, unspecified (principal); I11.0 Hypertensive heart disease with heart failure; I50.9 Heart failure, unspecified; I25.10 Atherosclerotic heart disease of native coronary artery without angina pectoris; J44.9 Chronic obstructive pulmonary disease, unspecified; E11.9 Type 2 diabetes mellitus without complications; K21.9 Gastro-esophageal reflux disease without esophagitis; F17.220 Nicotine dependence, chewing tobacco, uncomplicated; Z79.899 Other long term (current) drug therapy
CPT/HCPCS: 36415; 71010; 80053; 82553; 84484; 85025; 93005; 96374; 96375; 96376; J2270; J2405

== ENCOUNTER 2017-07-12 12:26 | Emergency (ER) | payer MEDICARE ==
--- NOTE | 2017-07-12 13:13 | RAD ---
SINGLE VIEW OF CHEST: Date: 07/12/17 COMPARISON: 06/17/17. HISTORY: Chest pain. FINDINGS: Single view of the chest shows an enlarged but stable cardiomediastinal silhouette. The pacemaker is unchanged in position. There is no evidence of consolidation, mass, or pleural effusion. Bilateral pe rihilar fullness likely represents normal pulmonary vasculature. IMPRESSION: Cardiomegaly without evidence of acute cardiopulmonary disease. POS: [facility]
[2017-07-12 13:28] LABS: #Basophils 0.1 thou/uL (0.0-0.2); #Eosinphils 0.1 thou/uL (0.0-0.7); #Lymphocytes 1.3 thou/uL (1.20-3.40); #Monocytes 0.6 thou/uL (0.11-0.59); #Neutrophils 3.4 thou/uL (1.40-6.50); %Basophils 0.9 % (0.0-1.0); %Eosinophils 1.8 % (0.0-10.0); %Monocytes 11.5 % (0.0-10.0); %Neutrophils 61.8 % (42.0-75.0); Hemoglobin 14.1 g/dL (14.0-18.0); Mean Corpuscular HGB CONC 32.6 g/dL (32.0-36.0); Mean Corpuscular Hemoglobin 30.1 pg (27.0-31.0); Mean Corpuscular Volume 92.5 fl (80.0-94.0); Mean Platelet Volume 9.7 fL (7.4-10.4); Platelet Count 164 thou/uL (130-400); RBC Distribution Width 15.8 % (11.5-14.5); Red Blood Cell (RBC) Count 4.67 mill/uL (4.70-6.10); White Blood Cell (WBC) Count 5.6 thou/uL (4.8-10.8)
[2017-07-12 13:51] LABS: ALT (SGPT) 12 U/L (8-55); AST (SGOT) 31 U/L (5-34); Albumin 4.2 g/dL (3.5-5.0); Alkaline Phosphatase 72 U/L (40-150); Anion Gap 14 mmol/L (10-20); BUN (Urea Nitrogen) 14 mg/dL (8.4-25.7); Bilirubin, Total 0.6 mg/dL (0.2-1.2); CK (CPK) 141 U/L (30-200); Calc. Creatinine Clearance 0 mL/min (70-130); Calcium 10.4 mg/dL (7.8-10.44); Carbon Dioxide 24 mmol/L (22-29); Chloride 104 mmol/L (98-107); Estimated GFR-MDRD 87; Globulin 4.1 g/dL (2.4-3.5); Glucose 247 mg/dL (70-105); Lipase 25 U/L (8-78); Potassium 4.3 mmol/L (3.5-5.1); Protein, Total 8.3 g/dL (6.0-8.3); Sodium 138 mmol/L (136-145)
[2017-07-12 13:55] LABS: CKMB 2.2 ng/mL (0-6.6); Troponin I 0.044 ng/mL (< 0.028)
[2017-07-12] MEDS ORDERED: Morphine 4 MG/ML Carpuject ONE (13:59)
== END 2017-07-12 14:52 | disposition home or self-care (01) ==
LOC: ERS 12:26
DX: R07.2 Precordial pain (principal); I25.10 Atherosclerotic heart disease of native coronary artery without angina pectoris; J44.9 Chronic obstructive pulmonary disease, unspecified; I11.0 Hypertensive heart disease with heart failure; I50.9 Heart failure, unspecified; E11.9 Type 2 diabetes mellitus without complications; K21.9 Gastro-esophageal reflux disease without esophagitis; F17.220 Nicotine dependence, chewing tobacco, uncomplicated; Z79.84 Long term (current) use of oral hypoglycemic drugs; Z71.6 Tobacco abuse counseling; Z79.899 Other long term (current) drug therapy
CPT/HCPCS: 71045; 80053; 82553; 83690; 83880; 84484; 85025; 93005; 96374; J2270

== ENCOUNTER 2017-07-29 15:44 | Emergency (ER) | payer MEDICARE ==
[2017-07-29 16:52] LABS: Clarity Clear (Clear)
[2017-07-29 16:53] LABS: Bilirubin Negative (Negative); Blood, Urine Negative (Negative); Glucose, Urine (Dipstick) 500 mg/dL (Negative); Leukocyte Negative (Negative); Nitrite Negative (Negative); Protein, Urine (Dipstick) Negative (Neg-Trace); Specific Gravity, Urine 1.025 (1.005-1.030); pH, Urine 5.5 (5.0-9.0)
== END 2017-07-29 17:28 | disposition home or self-care (01) ==
LOC: ERS 15:44
DX: M54.5 Low back pain (principal); I25.10 Atherosclerotic heart disease of native coronary artery without angina pectoris; I11.0 Hypertensive heart disease with heart failure; I50.9 Heart failure, unspecified; J44.9 Chronic obstructive pulmonary disease, unspecified; E11.9 Type 2 diabetes mellitus without complications; K21.9 Gastro-esophageal reflux disease without esophagitis; F17.210 Nicotine dependence, cigarettes, uncomplicated; Z79.891 Long term (current) use of opiate analgesic; Z87.442 Personal history of urinary calculi; Z79.899 Other long term (current) drug therapy
CPT/HCPCS: 36416; 81003; 99283

== ENCOUNTER 2017-11-05 21:34 | Emergency (ER) | payer MEDICARE ==
[2017-11-05 21:57] LABS: #Basophils 0.1 thou/uL (0.0-0.2); #Eosinphils 0.1 thou/uL (0.0-0.7); #Lymphocytes 1.6 thou/uL (1.20-3.40); #Neutrophils 3.9 thou/uL (1.40-6.50); %Basophils 0.9 % (0.0-1.0); %Eosinophils 1.4 % (0.0-10.0); %Lymphocytes 24.2 % (21.0-51.0); %Monocytes 14.7 % (0.0-10.0); %Neutrophils 58.9 % (42.0-75.0); Hemoglobin 13.7 g/dL (14.0-18.0); Mean Corpuscular Hemoglobin 31.6 pg (27.0-31.0); Mean Corpuscular Volume 95.7 fl (80.0-94.0); Mean Platelet Volume 8.6 fL (7.4-10.4); Platelet Count 159 thou/uL (130-400); RBC Distribution Width 13.1 % (11.5-14.5); Red Blood Cell (RBC) Count 4.35 mill/uL (4.70-6.10); White Blood Cell (WBC) Count 6.6 thou/uL (4.8-10.8)
[2017-11-05 22:24] LABS: CKMB 1.2 ng/mL (0-6.6); Troponin I 0.032 ng/mL (< 0.028)
--- NOTE | 2017-11-05 22:28 | RAD ---
PORTABLE CHEST: 11/05/17 COMPARISON: 07/12/17 study. HISTORY: Chest pain. Heart size is enlarged. Internal defibrillator device is present. The lungs are clear of any infiltra tive process. No signs of overt failure. Pulmonary arteries are slightly prominent centrally, but thi s is a stable finding. IMPRESSION: Cardiomegaly. Stable chest. POS: [facility]
[2017-11-05 22:29] LABS: ALT (SGPT) Less than 7 U/L (8-55); AST (SGOT) 16 U/L (5-34); Albumin 4.4 g/dL (3.5-5.0); Alkaline Phosphatase 66 U/L (40-150); Anion Gap 16 mmol/L (10-20); BUN (Urea Nitrogen) 14 mg/dL (8.4-25.7); Bilirubin, Total 1.5 mg/dL (0.2-1.2); CK (CPK) 107 U/L (30-200); Calc. Creatinine Clearance 0 mL/min (70-130); Calcium 10.2 mg/dL (7.8-10.44); Carbon Dioxide 26 mmol/L (22-29); Chloride 102 mmol/L (98-107); Estimated GFR-MDRD 79; Globulin 3.5 g/dL (2.4-3.5); Glucose 84 mg/dL (70-105); Potassium 3.5 mmol/L (3.5-5.1); Protein, Total 7.9 g/dL (6.0-8.3); Sodium 140 mmol/L (136-145)
[2017-11-05] MEDS ORDERED: HYDROcodone/Acetaminophen 10/325 mg Tablet ONE (22:55)
== END 2017-11-05 23:49 | disposition home or self-care (01) ==
LOC: ERS 21:34
DX: R07.89 Other chest pain (principal); I25.10 Atherosclerotic heart disease of native coronary artery without angina pectoris; I11.0 Hypertensive heart disease with heart failure; I50.9 Heart failure, unspecified; J44.9 Chronic obstructive pulmonary disease, unspecified; K21.9 Gastro-esophageal reflux disease without esophagitis; E11.9 Type 2 diabetes mellitus without complications; F17.220 Nicotine dependence, chewing tobacco, uncomplicated; Z79.899 Other long term (current) drug therapy; Z79.84 Long term (current) use of oral hypoglycemic drugs
CPT/HCPCS: 36415; 71045; 80053; 82550; 82553; 84484; 85025; 93005

== ENCOUNTER 2017-11-25 14:14 | Observation (INO) | payer MEDICARE ==
[2017-11-25 14:44] LABS: #Eosinphils 0.1 thou/uL (0.0-0.7); #Lymphocytes 0.9 thou/uL (1.20-3.40); #Monocytes 0.7 thou/uL (0.11-0.59); #Neutrophils 3.5 thou/uL (1.40-6.50); %Basophils 0.5 % (0.0-1.0); %Monocytes 13.6 % (0.0-10.0); %Neutrophils 67.8 % (42.0-75.0); Hemoglobin 13.7 g/dL (14.0-18.0); Mean Corpuscular HGB CONC 34.4 g/dL (32.0-36.0); Mean Corpuscular Hemoglobin 32.6 pg (27.0-31.0); Mean Corpuscular Volume 94.6 fl (80.0-94.0); Mean Platelet Volume 8.7 fL (7.4-10.4); Platelet Count 175 thou/uL (130-400); RBC Distribution Width 13.1 % (11.5-14.5); Red Blood Cell (RBC) Count 4.19 mill/uL (4.70-6.10); White Blood Cell (WBC) Count 5.2 thou/uL (4.8-10.8)
[2017-11-25 15:05] LABS: ALT (SGPT) Less than 7 U/L (8-55); AST (SGOT) 17 U/L (5-34); Albumin 4.2 g/dL (3.5-5.0); Alkaline Phosphatase 59 U/L (40-150); Anion Gap 14 mmol/L (10-20); BUN (Urea Nitrogen) 12 mg/dL (8.4-25.7); CK (CPK) 116 U/L (30-200); Calc. Creatinine Clearance 0 mL/min (70-130); Calcium 9.1 mg/dL (7.8-10.44); Carbon Dioxide 25 mmol/L (22-29); Chloride 101 mmol/L (98-107); Estimated GFR-MDRD 88; Globulin 3.2 g/dL (2.4-3.5); Glucose 127 mg/dL (70-105); Lipase 26 U/L (8-78); Protein, Total 7.4 g/dL (6.0-8.3); Sodium 137 mmol/L (136-145)
[2017-11-25 15:09] LABS: CKMB 0.9 ng/mL (0-6.6); Troponin I 0.055 ng/mL (< 0.028)
[2017-11-25] MEDS ORDERED: Morphine 4 MG/ML VIAL ONE (15:56)
[2017-11-25 16:19] LABS: Digoxin 1.47 ng/mL (0.8-2.0)
--- NOTE | 2017-11-25 16:27 | RAD ---
CHEST 1 VIEW: COMPARISON: 11/05/17. HISTORY: Pain. FINDINGS: Diminished lung volumes, likely due to poor inspiratory effort. There is cardiomegaly. Pulmonary ve ssels and hilum are normal. Costophrenic angles are clear. No consolidation or mass. No pneumothor ax or osseous abnormalities. Stable left-sided transvenous defibrillator. IMPRESSION: No acute cardiopulmonary process. Cardiomegaly. POS: [facility]
[2017-11-25 16:56] LABS: Bilirubin Moderate (Negative); Blood, Urine Negative (Negative); Clarity CLEAR (Clear); Glucose, Urine (Dipstick) Negative (Negative); Leukocyte Small (Negative); Nitrite Negative (Negative); Protein, Urine (Dipstick) 100 mg/dL (Neg-Trace); Specific Gravity, Urine 1.024 (1.002-1.036); Urobilinogen > or = 8.0 mg/dL (0.2-1.0)
[2017-11-25 16:58] LABS: Bacteria/HPF None Seen HPF (None Seen); Pathc Cast-AUWi Flag 0.87 (0-2.49); RBC/HPF 0-3 HPF (0-3); Squamous Epithelial 0-3 HPF (0-3); WBC/HPF 0-3 HPF (0-3)
[2017-11-25 17:00] LABS: Hyaline Casts/LPF 0-3 HYALINE CAST LPF (0-3 Hyaline)
[2017-11-25 18:26] LABS: Troponin I 0.052 ng/mL (< 0.028)
[2017-11-25] MEDS ORDERED: Acetaminophen 650 MG Suppository PR PRN (18:27)
[2017-11-25] MEDS ORDERED: Ondansetron HCl/PF 4 MG/2 ML Vial IVP PRN (18:27)
[2017-11-25] MEDS ORDERED: Acetaminophen 325 MG TAB PO PRN (18:27)
[2017-11-25] MEDS ORDERED: Ondansetron ODT 4 MG TAB PO PRN (18:27)
[2017-11-25] MEDS ORDERED: PROVENTIL INHALER 6.7 G (200 INHALATIONS) INH PRN (18:27)
[2017-11-25] MEDS ORDERED: Bisacodyl 5 MG TAB PO PRN (18:27)
[2017-11-25 19:02] VITALS: BMI 33.1
[2017-11-25] MEDS: Carvedilol 25 MG TAB PO SCH (20:30)
[2017-11-25] MEDS: Potassium Chloride 10 MEQ TAB PO SCH (20:31)
[2017-11-25] MEDS ORDERED: Latanoprost 0.005% Ophth Soln 2.5 ml Bottle EA EYE SCH (21:00)
[2017-11-25 21:10] LABS: Troponin I 0.045 ng/mL (< 0.028)
[2017-11-25] MEDS: traMADol HCl 50 MG TAB PO PRN (21:33)
[2017-11-25 21:52] LABS: Bilirubin Moderate (Negative); Blood, Urine Negative (Negative); Clarity CLEAR (Clear); Glucose, Urine (Dipstick) Negative (Negative); Leukocyte Trace (Negative); Nitrite Negative (Negative); Protein, Urine (Dipstick) 30 mg/dL (Neg-Trace); Specific Gravity, Urine 1.025 (1.002-1.036); Urobilinogen > or = 8.0 mg/dL (0.2-1.0)
[2017-11-25 21:53] LABS: Bacteria/HPF None Seen HPF (None Seen); Hyaline Casts/LPF 0-3 HYALINE CAST LPF (0-3 Hyaline); Pathc Cast-AUWi Flag 0.14 (0-2.49); Squamous Epithelial 0-3 HPF (0-3); WBC/HPF 0-3 HPF (0-3)
[2017-11-25 22:02] LABS: Amphetamine Not Detected (NotDetected); Barbiturates Screen Not Detected (NotDetected); Benzodiazepine Screen Not Detected (NotDetected); Cocaine Metabolite Screen Not Detected (NotDetected); Medtox Control Line Valid? VALID (VALID); Medtox Reader # READER 1; Methadone Not Detected (NotDetected); Methamphetamine Not Detected (NotDetected); Opiate Screen Detected (NotDetected); Oxycodone Screen Not Detected (NotDetected); Phencyclidine (PCP) Not Detected (NotDetected); THC/Cannabinoid Screen Not Detected (NotDetected); Tricyclic Screen Not Detected (NotDetected)
--- NOTE | 2017-11-25 23:05 | HP ---
PRIMARY CARE PHYSICIAN: Dr. Vincent at [facility]. REASON FOR ADMISSION: Chest pain. HISTORY OF PRESENT ILLNESS: This is a 57-year-old -[place] male with a known history of lavno re congestive heart failure, ejection fraction 10% to 15% with pacemaker ICD already in place, who jasso s had chronic chest pain and recurrent congestive heart failure exacerbations. The patient reports t hat for the last 5-6 months, he has had daily chest pain. The substernal lower sternum squeezing trenton n will last for 45 minutes and go away. It is not respond to nitroglycerin. He has been worked up f or this multiple times and states that he has gone to [facility] that and now here wit h causing it. He reports that in August or September of this year, he was admitted to [facility], he had a stress test and then had a cardiac catheterization. He did not have any stents or ch yessi in his medications at that point. The patient reports for the last 4-5 days, the pain seems to be getting worse, associated with some shortness of breath and sweating when he gets it then resolved spontaneously. He did take the last of his nitroglycerins today during the chest pain episode and i t did not help the pain spontaneously resolved at about 45 minutes. He now has minimal chest pain. He was seen in the emergency room did have an indeterminate troponin, unchanged EKG, so we are observ ed in the hospital overnight. PAST MEDICAL HISTORY: 1. Systolic congestive heart failure with ejection fraction of 10% to 15%. 2. Chronic respiratory failure on home oxygen therapy 2 liters. 3. Chronic obstructive pulmonary disease. 4. Obstructive sleep apnea. 5. History of deep venous thrombosis and pulmonary embolism, not currently on anticoagulation. 6. Morbid obesity. 7. Peptic ulcer disease with previous gastrointestinal bleed. 8. Hypertension. 9. Hyperlipidemia. 10. Chronic anemia. 11. Diabetes mellitus type 2 on oral hypoglycemics only. 12. Gastroesophageal reflux disease. 13. Recurrent esophageal stricture.. 14. Colon polyps. PAST SURGICAL HISTORY: 1. Right knee arthroscopy. 2. AICD and pacemaker placement. 3. Esophageal dilation x4. 4. Colonoscopy with polypectomy. 5. Multiple previous cardiac catheterization. 6. Laser surgery for kidney stones. 7. Colon resection for unknown reason. SOCIAL HISTORY: Patient dips tobacco about one can per day or less for the last 15 years. No smokin g, no alcohol or illicit drug use. He is and lives with his . FAMILY HISTORY: Both parents had a history of coronary disease and diabetes. Father with a history of prostate cancer. ALLERGIES: No known drug allergies. CURRENT MEDICATIONS: 1. Lisinopril 20 mg daily. 2. Protonix 40 mg daily. 3. Digoxin 125 mcg daily. 4. Carvedilol 25 mg twice a day. 5. Glipizide 5 mg daily. 6. Lasix 80 mg in the morning and 40 mg at 2:00 in the afternoon. 7. Ultram 1-2 tablets every 4 hours as needed for pain. 8. Zanaflex 4 mg every 8 hours as needed for muscle spasms. REVIEW OF SYSTEMS: Constitutional: No fevers. He does get some chills and sweats with his chest pain. EYES: No double vision or changes in vision. He has had chronic blurred vision and takes eyedrops. ENT: No congestion, drainage or sore throat. Cardiovascular: See HPI. No syncopal episodes, no worsened swelling currently. PULMONARY: He has some morning cough and a clear congestion early in the mornings and after that. N o wheezing, no shortness of breath. GASTROINTESTINAL: No abdominal pain. He did have nausea during the chest pain, but that has since r esolved. No vomiting, no constipation. He does take MiraLax as needed and took some until about 4 d ays ago when he started having loose bowel movements 3 times a day and so he stopped it since then. no hematic no mucus and loose bowel movements. GENITOURINARY: He does have some intermittent dysuria for the last week. most recently last night. MUSCULOSKELETAL: No muscle aches or joint pains. SKIN: No rashes or lesions. NEUROLOGIC: No numbness, tingling or focal weakness. PHYSICAL EXAMINATION: VITAL SIGNS: Blood pressure 133/91, pulse 70, respirations 17, temperature 98.9, O2 sat 97% on room air; however, the patient is on 2 liters in the room currently and does use chronic oxygen. GENERAL: This is a well-developed, obese male in no acute distress. HEENT: Pupils equal, round, and reactive to light. Oropharynx clear without lesions, erythema or ex udate. NECK: Supple, no lymphadenopathy, no thyroid nodules or enlargement, no JVD. HEART: Regular rate and rhythm, no murmurs, rubs or gallops. LUNGS: Clear to auscultation bilaterally, no wheezes, crackles or rhonchi. ABDOMEN: Soft, nontender to palpation. mild tender to palpation in the midepigastrium as well as te nderness to palpation of the lower sternum and just to the right of the sternum that reproduces his c hest pain. No masses in his abdomen. No hepatosplenomegaly. He has normoactive bowel sounds, no gu arding or rebound tenderness. EXTREMITIES: No clubbing or cyanosis noted. No significant edema currently. SKIN: No rashes or lesions noted. NEUROLOGIC: He has intact strength in all extremities and normal and no facial droop. LABORATORY DATA: CBC grossly within normal limits. Complete metabolic panel was notable for a potas sium of 3.1 and a glucose of 127, a total bilirubin of 2.0, which sometimes does jump up this is the highest than previously it was 1.5 earlier in the month. The rest of the LFTs are normal. However, cardiac marker set troponin 0.055 on the initial check, this is consistent with some of his previous elevations anywhere between 0.03 and 0.06 and 0.08 at some point. Urinalysis not back yet. Digoxin level was normal at 1.47. Chest x-ray: I did review the chest x-ray along with the radiologist's re port. Patient does have cardiomegaly; however, he does not have any evidence of acute congestive lucinda lure. EKG shows a nonspecific intraventricular block with knots or bleach not significantly changed from his previous EKGs. ASSESSMENT: 1. Chest pain. This is actually quite chronic for him. Likely related to his congestive heart fail ure; however, may be musculoskeletal in origin, as well. The patient does report some worsening over the last 3-4 days and so will go ahead and watch him overnight, trend his troponins and get his neva rds of his recent catheterization from [facility]. We will also have Dr. Rodrigues see him evaluat e and see whether we need to do further evaluation of his heart or adjust his medications at this sidney e. He does not appear to be in acute congestive failure. 2. Chronic systolic congestive heart failure, currently does not appear to be exacerbation. We will resume his home his medications and restrict his fluids and salt in his diet. 3. Diabetes mellitus type 2. Resume patient's glipizide and we will put him on a diabetic diet. 4. History of pulmonary embolus and deep venous thrombosis. Patient does not have any significant w orsening of his cardiovascular status at this point it is not suspicious of a recurrent pulmonary emb olism at this time however should he become more hypoxic than or his head worsening clinically in any way that he might need to repeat CTA. He has had one since he has stopped his Coumadin and that sidney e it was negative. 5. gastroesophageal reflux disease with history of bleeding ulcers. We will resume patient's Proton ix. 6. Deep venous thrombosis prophylaxis. Put the patient on sequential compression devices while he i s in bed. 7. Code status. I did discuss with the patient, he is a FULL CODE. Should he be incapacitated, his would be his medical decision maker, her name is Domitila Morris.
[2017-11-26 05:00] LABS: #Basophils 0.1 thou/uL (0.0-0.2); #Eosinphils 0.2 thou/uL (0.0-0.7); #Lymphocytes 1.3 thou/uL (1.20-3.40); #Monocytes 0.8 thou/uL (0.11-0.59); %Basophils 1.1 % (0.0-1.0); %Eosinophils 3.5 % (0.0-10.0); %Lymphocytes 24.1 % (21.0-51.0); %Monocytes 14.6 % (0.0-10.0); %Neutrophils 56.6 % (42.0-75.0); Hemoglobin 12.8 g/dL (14.0-18.0); Mean Corpuscular Hemoglobin 31.4 pg (27.0-31.0); Mean Corpuscular Volume 95.3 fl (80.0-94.0); Mean Platelet Volume 9.3 fL (7.4-10.4); Platelet Count 149 thou/uL (130-400); Red Blood Cell (RBC) Count 4.06 mill/uL (4.70-6.10); White Blood Cell (WBC) Count 5.3 thou/uL (4.8-10.8)
[2017-11-26 05:14] LABS: Anion Gap 11 mmol/L (10-20); BUN (Urea Nitrogen) 12 mg/dL (8.4-25.7); Calc. Creatinine Clearance 140 mL/min (70-130); Carbon Dioxide 27 mmol/L (22-29); Chloride 103 mmol/L (98-107); Estimated GFR-MDRD Greater than 90; Glucose 94 mg/dL (70-105); Potassium 3.1 mmol/L (3.5-5.1); Sodium 138 mmol/L (136-145)
--- NOTE | 2017-11-26 08:24 | ULT ---
RIGHT UPPER QUADRANT ULTRASOUND: Date: 11/26/17 COMPARISON: None. HISTORY: Abnormal liver function tests, elevated bilirubin. TECHNIQUE: Multiplanar Lam scale sonographic imaging of the right upper quadrant obtained. FINDINGS: Imaged pancreas is unremarkable. The tail is obscured by bowel gas. No focal liver lesion or intrahep atic biliary dilatation is seen. The common bile duct measures 3.0 mm, within normal limits. Incident al note is made of a cyst within the right lobe of the liver measuring 3.3 cm. The right kidney measures 10.5 cm craniocaudal dimension and demonstrates no stone, hydronephrosis, o r mass. No gallbladder wall thickening or pericholecystic fluid. No gallstones are noted. The creative services intern rep orts a negative Womack's sign. IMPRESSION: No evidence for cholelithiasis, cholecystitis, or biliary dilatation. POS: [facility]
[2017-11-26] MEDS ORDERED: HYDROcodone/Acetaminophen 10/325 mg Tablet PO PRN (08:59)
[2017-11-26] MEDS ORDERED: Furosemide 40 MG TAB PO SCH ×2 (09:00→14:00)
[2017-11-26] MEDS ORDERED: Furosemide 80 MG TAB PO SCH (09:00)
[2017-11-26] MEDS ORDERED: Aspirin 325 MG TAB PO SCH (09:00)
[2017-11-26] MEDS ORDERED: Non-Formulary Item 1 EACH (Gabapentin [Gabapentin] 600 MG) PO SCH (09:00)
[2017-11-26] MEDS ORDERED: Digoxin 0.125 MG TAB PO SCH (09:00)
[2017-11-26] MEDS ORDERED: Gabapentin 300 MG CAP PO SCH (09:00)
[2017-11-26] MEDS ORDERED: Lisinopril 20 MG TAB PO SCH (09:00)
[2017-11-26] MEDS ORDERED: EPLERENONE 50 MG PO SCH (09:00)
[2017-11-26] MEDS ORDERED: Enoxaparin Sodium 40 MG/0.4 ML SYRINGE SC SCH (09:00)
[2017-11-26] MEDS ORDERED: Furosemide 100 MG/10 ML VIAL SLOW IVP SCH (09:00)
[2017-11-26] MEDS ORDERED: Nitroglycerin 0.4 MG TAB (25 Tab Bottle) PO PRN (09:02)
--- NOTE | 2017-11-26 09:05 | PDOC.PN ---
- Subjective Encounter Start Date: 11/26/17 Encounter Start Time: 11:30 Subjective: Pain at baseline. Ambulating well in hallways. Feeling much better. - Objective Resuscitation Status: Resuscitation Status FULL:Full Resuscitation MAR Reviewed: Yes Vital Signs & Weight: Vital Signs (12 hours) Temp Pulse Resp BP BP Pulse Ox 11/26/17 07:40 97.3 F L 65 16 11/26/17 07:12 97.5 F L 60 18 124/80 98 11/26/17 07:00 96 11/26/17 04:15 97.3 F L 65 16 111/74 99 Weight Weight 237 lb 14.4 oz I&O: 11/25/17 11/26/17 11/27/17 06:59 06:59 06:59 Intake Total 240 Output Total 100 Balance 140 Result Diagrams: 11/26/17 03:24 11/26/17 03:24 Phys Exam - Physical Examination Constitutional: NAD HEENT: moist MMs Respiratory: no wheezing, no rales, no rhonchi Cardiovascular: RRR, no significant murmur Gastrointestinal: soft, positive bowel sounds Musculoskeletal: no edema Neurological: non-focal, moves all 4 limbs Psychiatric: normal affect, A&O x 3 Dx/Plan (1) Chest pain Code(s): R07.9 - CHEST PAIN, UNSPECIFIED Status: Acute Comment: troponin stable, no evidence ACS, likely GERD vs. chronic chest pain from severe CHF (2) Chronic systolic CHF (congestive heart failure) Code(s): I50.22 - CHRONIC SYSTOLIC (CONGESTIVE) HEART FAILURE Status: Chronic Comment: Continue home oral Lasix. BNP up a bit, but no clinical evidence of CHF exacc at this time. (3) Diabetes mellitus type 2 in obese Code(s): E11.69 - TYPE 2 DIABETES MELLITUS WITH OTHER SPECIFIED COMPLICATION; E66.9 - OBESITY, UNSPECIFIED Status: Chronic (4) Hypokalemia Code(s): E87.6 - HYPOKALEMIA Status: Acute Comment: replace orally - Plan cont current plan of care Dr. Yusuf consulted, chest pain non-cardiac. -: Cath from 2016 at [facility] without any coronary artery disease. Pain -: most likely GI. Will need GI workup as outpatient. Ok to d/c. * . - Discharge Day Encounter end time: 12:00
[2017-11-26] MEDS ORDERED: Potassium Chloride 20 MEQ TAB PO SCH (09:15)
[2017-11-26] MEDS: Carvedilol 25 MG TAB PO SCH (10:18)
[2017-11-26] MEDS: Potassium Chloride 10 MEQ TAB PO SCH (10:19)
[2017-11-26 11:35] VITALS: BP 132/86; TEMP 97.5
[2017-11-26] MEDS: traMADol HCl 50 MG TAB PO PRN (11:57)
[2017-11-26] MEDS ORDERED: Furosemide 20 MG TAB PO SCH (14:00)
--- NOTE | 2017-11-26 18:14 | CON ---
DATE OF CONSULTATION: 11/26/2017 DATE OF ADMISSION: 11/25/2017 INDICATION FOR CONSULTATION: A 57-year-old gentleman with a long history of cardiomyopathy and chest pain with significant gastroesophageal reflux disease. We were asked to see him due to a possible n on-ST segment elevation myocardial infarction with abnormal cardiac enzymes and chest pain. I have di flower following Mr. Morris for many years now. He has a long history of cardiomyopathy more than 15 years ago. He was diagnosed with cardiomyopathy. Ejection fraction has remained at about 10%-15%. It did increase up in 2013 and echocardiogram showed ejection fraction approximately 20%-25% with lef t ventricular dilatation. He has undergone AICD implant and is followed on a routine basis. He has had no significant problems recently. He has had an episode, however, of syncope back in 08/2017, bu t interrogation device apparently showed no problems according to the patient. In the last 6 months he has been hospitalized at least 6-7 times mainly at [facility] for continued chest pain. He h as a history of gastroesophageal reflux disease and has undergone endoscopy in the past. They said t here were no significant abnormalities. He also told that, in August of this year, he underwent ca rdiac catheterization and was told that there were no significant abnormalities noted. At this time, he continues to have episodes of chest discomfort, which most likely are noncardiac in nature due to his history of normal coronary arteries; however, the troponin I was elevated at 0.055 and then decr eased down to 0.52 and then again to 0.045. His BNP is elevated at 1781. He is also followed by Dago Hernandez for his congestive heart failure. Recently, for the last several months, he has been se [facility] at [facility]. At this time, he is pain free. His EKG shows atrial p acing and ventricular sensing. Occasionally, shows what appears to be a bundle branch block with sin us rhythm. PAST MEDICAL HISTORY: Significant for the cardiomyopathy. He has a history of tobacco abuse. He jasso s a history of hypertension; congestive heart failure; gastroesophageal reflux disease; diabetes, whi ch I believe has been non-insulin dependent. He has a history of dyslipidemia. History of COPD. REVIEW OF SYSTEMS: Twelve-point review of systems is unremarkable except what was noted in the histo ry of present illness. He does have shortness of breath and fatigue and dyspnea; however, he does jasso ve a history of COPD. He says he does nebulizer treatments, as he is unable to walk very far due to shortness of breath. He says his pain occurs when he is usually not doing any physical activity whil e he is at rest. He has had no other significant complaints on the review of systems. ALLERGIES: I believe there are no allergies. PRESENT MEDICATIONS: Include lisinopril, Protonix, digoxin, glipizide, carvedilol, Lasix, Ultram and Zanaflex. FAMILY HISTORY: Positive for coronary artery disease. SOCIAL HISTORY: He continues to dip smokeless tobacco. He has no alcohol use. He continues to live with his family. PHYSICAL EXAMINATION: GENERAL: Reveals a well-developed, well-nourished gentleman, who is in no acute distress at this sidney e. He is alert. He is oriented. He is uncomfortable. VITAL SIGNS: Show a blood pressure of 124/80, heart rate is 65 and regular, respiratory rate is 18. He is afebrile. HEENT EXAM: Shows the head to be normocephalic and atraumatic. Carotid pulses are present. There w ere no bruits noted. CHEST: Clear to auscultation without rales, rhonchi, or wheezing. CARDIOVASCULAR EXAM: Reveals a regular rate and rhythm. He has a normal S1 and S2. I cannot hear a n S3 nor an S4. He does have a soft systolic murmur over the aortic area approximately 1-2/6, but no significant murmurs were noted. ABDOMINAL EXAM: Soft and nontender. Positive bowel sounds are present. EXTREMITIES: Show no clubbing, cyanosis, or edema. Pedal pulses are present. There is no edema. NEUROLOGIC: The patient appears to be fully intact. He has normal strength and normal tone. He is able to ambulate without difficulties. SKIN: Warm and dry. LABORATORY DATA: Shows the hemoglobin of 12.8, WBC of 5.3, platelet count of 149,000. His creatinin e is 0.91, potassium 3.1, sodium 138, blood sugar was 94. Cardiac enzymes as noted above and the BNP was 1781. IMPRESSION: 1. Chest pain, which is somewhat atypical and most likely is noncardiac in etiology. Certainly, if he did have a cardiac catheterization in August of this year with normal coronaries, then this is n ot a cardiac issue causing the chest discomfort. He does not have any EKG changes to indicate ischem ia and the cardiac enzymes are still indeterminate and may be due to the cardiomyopathy. He did ment ion that sometimes he does have a rapid heart rate, but this will need to be evaluated by interrogati on of the device, but I did not see any tachycardia at this time. Most likely is a chronic issue wit h this gentleman with his cardiomyopathy. 2. History of congestive heart failure. We will continue to monitor the patient. We will manage hi s medicines. At this time, he appears to be euvolemic except for the elevated BNP, which may be due to diastolic dysfunction. I do not have a recent hard copy of echocardiogram. We may need to repeat the echocardiogram unless he had one recently done at [facility], if we can obtain those record s, but some of the records are still pending, but some of the records have come through, but we still do not have an echocardiogram or a cardiac catheterization report. 3. History of gastroesophageal reflux disease. This is the most likely etiology of his discomfort s vikash he has a history of normal coronaries in the past. 4. History of diabetes appears under good control at this time. 5. Hypertension. This is also under good control at this time. He did have a cardiac catheterization; these records are now available, was documented. There was a cardiac catheterization in 08/2015 by , which documented normal coronary arteries and ejecti on fraction originally was 10%, but by cardiac catheterization appeared to be about 30%, but the most recent cardiac catheterization is still pending. He said he had one just earlier done this year, a couple months ago. We will still try to await those records. We will be more than happy to continue to follow the patient with you, but most likely he should be seen by Gastroenterology again and may need to change his medications for his H2 blockers.
[2017-11-26] MEDS ORDERED: traZODone HCl 50 MG TAB PO SCH (21:00)
--- NOTE | 2017-11-26 22:06 | DIS ---
DATE OF ADMISSION: 11/25/2017 DATE OF DISCHARGE: 11/26/2017 PRIMARY CARE PHYSICIAN: Dr. Vincent at [facility]. REASON FOR ADMISSION: Chest pain. DISCHARGE DIAGNOSES: 1. Noncardiac chest pain. 2. Chronic systolic congestive heart failure without exacerbation. 3. Diabetes mellitus type 2. 4. Hypokalemia. 5. Hyperbilirubinemia with normal ultrasound in the right upper quadrant. PROCEDURE: Right upper quadrant abdominal ultrasound showing no evidence for cholelithiasis, cholecy stitis or biliary dilatation. CONSULTATION: Cardiology, Dr. Yusuf. SUMMARY OF HOSPITAL COURSE: This is a 57-year-old male with a known history of lavon re congestive heart failure and nonischemic congestive heart failure with ejection fraction of 10%-15 % with pacemaker and ICD already in place who has had chronic chest pain for the last year. Last 5-6 months, it has been daily, then it got worse over the last 2-3 or 4 days as a squeezing pain that co mes and goes in the lower sternum lasted about 45 minutes and goes away spontaneously, did not respon d to nitroglycerin at home, so he came into the hospital. He stated he went here instead of [facility] or the [facility] where he has gone previously, because he has been seen for multiple times and may well fear what caused it. He did report that he had a catheterization at [facility] in the last 3 months. The patient did have an indeterminate troponin of 0.05 in the hospital, which is consistent with his previous, we did trend his troponins overnight and watch him on telemetry. 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 His chest pain was better this morni ng, just a small amount of chronic chest pain. We did get his records from [place] as well a s Dr. Yusuf see the patient. His last catheterization was actually in 2015. He just had an echo and a workup for a syncopal episode back in August or August and has seen Neurology over there. His car dia catheterization in 2015 had completely normal coronary arteries. Dr. Yusuf evaluated the patient and determined this was not cardiac in origin and more likely GI and recommended GI workup. Patient does have a [employer] History Professor who sees over here and will follow up with them as an outpatient. Of note, the patient's bilirubin was 2.0, which is higher than it had been previously, so we did an ult rasound which was normal as above, unless his LFTs are normal, this is possibly due to his just liver congestion from his congestive heart failure. DISCHARGE MANAGEMENT: Discharged home. FOLLOWUP: Follow up with primary care physician and medical imaging technologist at [facility] as scheduled and to follow up with GI in the next 1-2 weeks about his chest pain for further workup of this problem. ACTIVITY: As tolerated. DIET: Diabetic, low sodium, fluid restricted diet. MEDICATIONS: The patient is to resume all of his home medications. 1. Albuterol sulfate inhaler as needed. 2. Aspirin 81 mg daily. 3. Carvedilol 25 mg twice a day. 4. Digoxin 125 mcg daily. 5. Gabapentin 600 mg daily. 6. Glipizide ER 5 mg daily. 7. [place] as needed. 8. Xalatan 1 drop in each eye at night. 9. Lisinopril 20 mg daily. 10. Protonix 40 mg daily. 11. Potassium chloride 10 mEq twice a day. 12. Tramadol 50 mg q.6 hours as needed. 13. Eplerenone 50 mg daily. 14. Furosemide 80 mg in the morning and 40 mg in the afternoon.
[2017-11-27] MEDS ORDERED: EPLERENONE 50 MG PO SCH (09:00)
== END 2017-11-26 14:13 | disposition home or self-care (01) ==
LOC: ERS 14:14 → 2SW 17:06
PROVIDERS: ADMIT Emergency Medicine; ATTEND Emergency Medicine
DX: R07.89 Other chest pain (principal); I11.0 Hypertensive heart disease with heart failure; I50.22 Chronic systolic (congestive) heart failure; E11.9 Type 2 diabetes mellitus without complications; I42.9 Cardiomyopathy, unspecified; E87.6 Hypokalemia; K21.9 Gastro-esophageal reflux disease without esophagitis; J44.9 Chronic obstructive pulmonary disease, unspecified; Z79.82 Long term (current) use of aspirin; Z79.84 Long term (current) use of oral hypoglycemic drugs; Z79.899 Other long term (current) drug therapy; Z87.891 Personal history of nicotine dependence
CPT/HCPCS: 71045; 76705; 80048; 80053; 80162; 80306; 82550; 82553; 83690; 83880; 84484 ×2; 85025 ×2; 93005; 94760 ×2; 96372; 96374; 97139; 99285; G0378; 36415; 81003; 81015; J1650; J2270

== ENCOUNTER 2018-06-14 16:01 | Observation (INO) | payer MEDICARE ==
[2018-06-14] MEDS ORDERED: Nitroglycerin 2% Ointment 1 INCH/1 GM Packet ONE (16:23)
[2018-06-14 16:26] LABS: #Eosinphils 0.1 thou/uL (0.0-0.7); #Monocytes 0.8 thou/uL (0.11-0.59); #Neutrophils 4.8 thou/uL (1.40-6.50); %Basophils 0.7 % (0.0-1.0); %Eosinophils 0.8 % (0.0-10.0); %Lymphocytes 15.4 % (21.0-51.0); %Monocytes 12.3 % (0.0-10.0); %Neutrophils 70.8 % (42.0-75.0); Hemoglobin 11.9 g/dL (14.0-18.0); Mean Corpuscular HGB CONC 33.3 g/dL (32.0-36.0); Mean Corpuscular Hemoglobin 32.7 pg (27.0-31.0); Mean Corpuscular Volume 98.3 fL (78.0-98.0); Mean Platelet Volume 8.6 fL (7.4-10.4); Platelet Count 179 thou/uL (130-400); RBC Distribution Width 13.6 % (11.5-14.5); Red Blood Cell (RBC) Count 3.64 mill/uL (4.70-6.10); White Blood Cell (WBC) Count 6.7 thou/uL (4.8-10.8)
--- NOTE | 2018-06-14 16:38 | RAD ---
RADIOGRAPH CHEST 1 VIEW: 06/14/18 HISTORY: 57-year-old male with mid sternal chest pain. FINDINGS: There is cardiomegaly. There is no evidence of air space density, pulmonary edema, or pneumothorax. T he lateral costophrenic angles are sharp. There is a multilead left subclavian AICD. IMPRESSION: 1) No acute pulmonary findings. 2) Cardiomegaly without congestive heart failure. 3) Automatic implantable cardioverter-defibrillator. aristides [] POS: RAMONA
[2018-06-14 16:42] LABS: ALT (SGPT) Less than 7 U/L (8-55); AST (SGOT) 17 U/L (5-34); Albumin 4.2 g/dL (3.5-5.0); Alkaline Phosphatase 63 U/L (40-150); Anion Gap 15 mmol/L (10-20); BUN (Urea Nitrogen) 18 mg/dL (8.4-25.7); Bilirubin, Total 1.2 mg/dL (0.2-1.2); CK (CPK) 103 U/L (30-200); Calc. Creatinine Clearance 0 mL/min (70-130); Calcium 9.8 mg/dL (7.8-10.44); Carbon Dioxide 26 mmol/L (22-29); Chloride 104 mmol/L (98-107); Estimated GFR-MDRD 75; Globulin 3.6 g/dL (2.4-3.5); Glucose 122 mg/dL (70-105); Lipase 25 U/L (8-78); Potassium 3.6 mmol/L (3.5-5.1); Protein, Total 7.8 g/dL (6.0-8.3); Sodium 141 mmol/L (136-145)
[2018-06-14] MEDS ORDERED: Ondansetron PF 4 MG/2 ML Vial ONE (17:37)
[2018-06-14] MEDS ORDERED: Morphine 4 MG/ML VIAL ONE (17:37)
[2018-06-14] MEDS ORDERED: Ondansetron ODT 4 MG TAB PO PRN (18:22)
[2018-06-14] MEDS ORDERED: Acetaminophen 325 MG TAB PO PRN (18:22)
[2018-06-14] MEDS ORDERED: Ondansetron PF 4 MG/2 ML Vial IVP PRN (18:22)
[2018-06-14] MEDS ORDERED: Furosemide 40 MG/4 ML VIAL SLOW IVP SCH (18:30)
[2018-06-14 19:20] VITALS: BMI 30.4
[2018-06-14] MEDS: Pantoprazole 40 MG VIAL IVP SCH (20:38)
[2018-06-14] MEDS ORDERED: PROVENTIL INHALER 6.7 G (200 INHALATIONS) INH PRN (20:58)
[2018-06-14] MEDS ORDERED: HYDROcodone/Acetaminophen 10/325 mg Tablet PO PRN (20:58)
[2018-06-14] MEDS ORDERED: Potassium Chloride 10 MEQ TAB PO SCH (21:00)
[2018-06-14] MEDS ORDERED: Latanoprost 0.005% Ophth Soln 2.5 ml Bottle EA EYE SCH (21:00)
[2018-06-14] MEDS ORDERED: traZODone HCl 50 MG TAB PO SCH (21:00)
[2018-06-14 21:02] LABS: Troponin I 0.048 ng/mL (< 0.028)
[2018-06-14] MEDS: Carvedilol 25 MG TAB PO SCH (21:44)
[2018-06-14] MEDS: Gabapentin 300 MG CAP PO SCH (21:46)
[2018-06-14 23:06] LABS: Troponin I 0.042 ng/mL (< 0.028)
--- NOTE | 2018-06-15 01:53 | HP ---
PRIMARY CARE PHYSICIAN: Dr. Vincent. CHIEF COMPLAINT: Substernal chest pain. HISTORY OF PRESENT ILLNESS: Mr. Morris is a pleasant 57-year-old male with a past medical history of chronic systolic and diastolic heart failure, diabetes mellitus type 2, gastroesophageal reflux disease, nonischemic cardiomyopathy with an AICD in place, and COPD. He had presented with his family members to [facility] earlier today with chest pain that has been going on for the last 3 to 4 days. He states that the pain in his chest came on suddenly around Saturday, he states he also has been getting nauseous and that is worse after meals. He states he has a history of reflux disease and takes Protonix for this at home. He states Saturday he was recently at [facility] in [place] and underwent a left and right heart catheterization. All he was able to tell me was that the results were stable. He states the last he knew was his left ventricular ejection fraction was around 10% to 15%. He states he was just determined to be a candidate for a heart transplant and is waiting to hear back. He reports an AICD in place; however, he had denied any shocks given during this time. He denies any fever, chills, shortness of breath, or abdominal pain. He denies any recent travel. He states he had been getting nauseous; however, denies any vomiting or diarrhea. He states he wears oxygen at home when he lays flat which he wears 2 L via nasal cannula, he states he is scheduled to undergo a sleep study because his primary care physician states that he thinks he has sleep apnea. During his workup in the ER, his lab work included troponin, which was found to be elevated at 0.040, which seems to be his baseline, he was recently admitted back in October of 2017 for similar symptoms of chest pain and his troponin was found to be elevated at that time as well between 0.032 and 0.055, Cardiology had seen him during that visit and had determined that he was on appropriate medical management at that time and recommended he follow up with his primary care physician and primary transition program manager at [facility]. He states he sees Dr. Hu and previously, Dr. Mendez. Other than his chest pain with occasional nausea, he had denied any further symptoms. PAST MEDICAL HISTORY: Hypertension, hyperlipidemia, diabetes mellitus type 2, nonischemic cardiomyopathy, chronic systolic and diastolic heart failure, and COPD. PAST SURGICAL HISTORY: Esophageal surgery x3, pacemaker/defibrillator placement, colon resection, lithotripsy for kidney stone, colon polyps removed, right knee surgery, hernia repair, recent left and right heart catheterization, which was last Saturday per the patient. PSYCHIATRIC HISTORY: He does report some depression, but denies any further psychiatric history at this time. SOCIAL HISTORY: Denies any alcohol or illicit drug use; however, does report chewing tobacco of one can every 2 to 3 days. FAMILY HISTORY: Negative for chronic cardiac disease. ALLERGIES: NO KNOWN DRUG ALLERGIES. CURRENT MEDICATIONS: 1. Glipizide 5 mg p.o. daily. 2. Lisinopril 20 mg p.o. daily. 3. Carvedilol 12.5 mg p.o. b.i.d. 4. Protonix 40 mg p.o. daily. 5. Hydrocodone/acetaminophen 10/325 mg one tablet p.o. every 6 hours as needed for pain. 6. Digoxin 125 mcg p.o. daily. 7. Potassium chloride 10 mEq p.o. b.i.d. 8. Albuterol sulfate 8.5 g HFA two puff inhalation every 4 hours p.r.n. wheezing. 9. Latanoprost one drop each eye at bedtime. 10. Gabapentin 600 mg p.o. b.i.d. 11. Trazodone 100 mg p.o. at bedtime. 12. Aspirin 81 mg p.o. daily. 13. Furosemide 80 mg p.o. q.a.m., 40 mg p.o. in the evening. 14. Isosorbide mononitrate 60 mg p.o. daily. 15. Sertraline Hcl 100 mg p.o. at bedtime. 16. Metformin 1000 mg p.o. b.i.d. 17. Tradjenta 5 mg p.o. daily. 18. Spironolactone 25 mg p.o. daily. REVIEW OF SYSTEMS: CONSTITUTIONAL: Denies any fever or chills. Denies any weight loss or weight gain. Denies any generalized weakness. HEAD: Denies any fall or trauma. Denies any headaches. ENT: Denies any blurred vision, change in vision, eye pain, eye redness. Denies any ear, nose or throat symptoms. Denies any sore throat. Denies any trouble swallowing. NECK: Denies any neck stiffness or neck pain. CARDIOVASCULAR: Does report some substernal chest pain, which started about 3 to 4 days ago. Denies any diaphoresis or palpitations. Does report AICD in place; however, denies any firing at this time. RESPIRATORY: Denies any shortness of breath; however, does report 2 L via nasal cannula at home when he is lying flat, he is scheduled to go for a sleep study as PCP is considering sleep apnea. He denies wheezing or cough. GASTROINTESTINAL: Does report some nausea that is worse after meals that had started over the last 3 to 4 days with his chest pain. He denies any abdominal pain, any constipation or diarrhea. Denies any blood in stool. No melena. GENITOURINARY: Denies any frequency, urgency, or dysuria. Denies any hematuria. SKIN: Denies any rash or lesion. Denies any bruising. Denies any itching. MUSCULOSKELETAL: Denies any edema. Denies any pain or weakness. Denies any joint pain or trouble walking. NEUROLOGIC: Denies any weakness or gait disturbances. Denies any slurred speech. PSYCHIATRIC: Does report some depression; however, denies any suicidal or homicidal ideation. PHYSICAL EXAMINATION: VITAL SIGNS: Blood pressure 118/82, pulse 78, respirations 21, temp 98.7 degrees Fahrenheit, and O2 saturation 93% on 2 L of oxygen via nasal cannula. GENERAL: The patient is awake, alert, and oriented x3. He appears to be comfortable, in no acute distress. He has 2 L via nasal cannula in place. HEENT: Head is normocephalic, atraumatic. Pupils round, reactive to light. Extraocular muscles intact. Ear, nose, and throat exam unremarkable. No drainage. Septum midline. Uvula midline. Oropharynx is clear without any exudates or erythema. NECK: Soft, supple. No JVD. No bruit noted. Full range of motion. CARDIOVASCULAR: Positive S1 and S2. Regular rate and rhythm, 2/6 systolic murmur. PULMONARY: Clear to auscultation bilaterally without any wheezes or rhonchi. ABDOMEN: Soft and nontender. Bowel sounds present. Nondistended. EXTREMITIES: Showing no clubbing, cyanosis, or edema. Pedal and radial pulses in place. Moves all extremities equally. Strength 5+ bilaterally. NEUROLOGIC: Cranial nerves 2 through 12 intact. Sensation intact. No focal deficits noted. SKIN: Warm, dry, and intact. PSYCHIATRIC: Good mood and affect. LABORATORY DATA: WBC 6.7, RBC 3.64, hemoglobin 11.9, platelets 179. Sodium 141, potassium 3.7, BUN 18, creatinine 1.22, estimated GFR 75, glucose 122, AST 17, ALT less than 7, alkaline phosphatase 63, creatine kinase 103, CK-MB 1.0. Troponin was found to be slightly elevated at 0.040, which seems to be his baseline, BNP also elevated at 2731.9. Lipase 25. DIAGNOSTIC IMAGING: Chest x-ray showed no acute pulmonary findings, cardiomegaly without congestive heart failure, AICD in place. ASSESSMENT AND PLAN: 1. Chest pain, the patient just recently had left and right heart catheterization at [facility], we will obtain records, along with AICD in place. We will ask for an interrogation of device for further evaluation. Due to the patient's history of chronic systolic and diastolic heart failure, we will consult with Cardiology Services. At this time, we will hold off for stress test and echocardiogram or further testing until records from [facility] are obtained. The patient will be placed on his home medications for medical management at this time, with further changes pending clinical findings. 2. Hypertension. As above, continue on the patient's home medications. 3. Chronic systolic and diastolic heart failure, continue home regimen. The patient's BNP is elevated at 2731.9, we will give IV Lasix 40 mg x1, then continue his home regimen. We will follow the patient closely overnight and consult with Cardiology in the morning. We will await further records from [facility]. 4. Diabetes mellitus, we will order frequent Accu-Cheks, we will hold the patient's home metformin and place on insulin sliding scale along with bedtime scale. Further changes pending his progress as needed. 5. Deep venous thrombosis prophylaxis with Lovenox 40 mg subcutaneous daily, and we will place him on a walking program. 6. Gastrointestinal prophylaxis with IV Protonix 40 mg twice daily along with add Zofran as needed for nausea. The patient's symptoms could also likely be secondary to his gastroesophageal reflux disease flaring up, we will monitor the patient's symptoms closely and if still nauseous postprandial in the morning, we will possibly add Gastroenterology consult for further evaluation; however, the patient had a gastrointestinal workup in the past, which was found to be unremarkable. 7. Code status: Full code. 8. Disposition and further medical management pending clinical findings and further results from AICD interrogation records from [facility]. Job ID: [id number]
[2018-06-15 04:34] VITALS: TEMP 97.6
[2018-06-15 07:05] LABS: #Eosinphils 0.1 thou/uL (0.0-0.7); #Lymphocytes 1.4 thou/uL (1.20-3.40); #Monocytes 0.6 thou/uL (0.11-0.59); #Neutrophils 2.8 thou/uL (1.40-6.50); %Basophils 0.3 % (0.0-1.0); %Eosinophils 1.8 % (0.0-10.0); %Neutrophils 55.9 % (42.0-75.0); Mean Corpuscular Hemoglobin 32.3 pg (27.0-31.0); Mean Corpuscular Volume 97.9 fL (78.0-98.0); Mean Platelet Volume 8.5 fL (7.4-10.4); Platelet Count 139 thou/uL (130-400); RBC Distribution Width 13.4 % (11.5-14.5); White Blood Cell (WBC) Count 4.9 thou/uL (4.8-10.8)
[2018-06-15 07:14] LABS: Anion Gap 11 mmol/L (10-20); BUN (Urea Nitrogen) 18 mg/dL (8.4-25.7); Calc. Creatinine Clearance 95 mL/min (70-130); Calcium 9.2 mg/dL (7.8-10.44); Carbon Dioxide 29 mmol/L (22-29); Chloride 103 mmol/L (98-107); Estimated GFR-MDRD 74; Glucose 92 mg/dL (70-105); Potassium 3.3 mmol/L (3.5-5.1); Sodium 140 mmol/L (136-145)
[2018-06-15 07:44] VITALS: BP 101/73
[2018-06-15] MEDS ORDERED: Potassium Chloride 20 MEQ TAB PO SCH (08:00)
[2018-06-15] MEDS: Carvedilol 25 MG TAB PO SCH (08:52)
[2018-06-15] MEDS: Gabapentin 300 MG CAP PO SCH (08:54)
--- NOTE | 2018-06-15 08:56 | DIS ---
DATE OF ADMISSION: 06/14/2018 DATE OF DISCHARGE: 06/15/2018 DISCHARGE DISPOSITION: Home. FOLLOWUP: 1. Follow up with primary care physician, Dr. Vincent, at [facility]. 2. Follow up with primary laminator hand, Dr. Ruiz, at [facility], operated by [facility] as scheduled. HISTORY: The patient was seen and examined on the day of discharge. Denies any new complaints. No chest pain, shortness of breath, or palpitations. BRIEF HOSPITAL COURSE: The patient is a 57-year-old male with chronic systolic and diastolic heart failure, ACC stage D, hypertension, diabetes mellitus type 2, and GERD, presented to the emergency room with lower midsternal burning chest discomfort that was more or less constant. Please refer to the history and physical for further details. The patient was admitted to the hospital with a diagnosis of chest discomfort, rule out acute coronary syndrome. Serial troponins were in the indeterminate range. Please note that the patient has chronically-elevated troponins in the indeterminate range. He was started on IV Protonix with good improvement in his symptoms. He had a cardiac catheterization 5 days ago at [facility] and that was negative for obstructive coronary artery disease. He was found to have a severe pulmonary hypertension secondary to congestive heart failure. His AICD was recently checked as well. He was found to have low potassium of 3.3 today, which will be replaced. His potassium in the emergency room was 3.6. His symptoms improved with IV PPI. He was advised to continue Protonix. If his symptoms does not improve , he will benefit from a GI evaluation as outpatient. Plan of care was discussed with the patient in detail and he stated understanding. FINAL DIAGNOSES: 1. Atypical chest discomfort, probably secondary to gastroesophageal reflux disease. 2. Chronic systolic and diastolic heart failure, compensated. 3. Diabetes mellitus type 2. 4. Status post automatic implantable cardioverter-defibrillator. 5. Nonischemic cardiomyopathy. 6. Severe pulmonary hypertension. 7. Chronic respiratory failure, on home oxygen. 8. Tobacco dependence. 9. Obstructive sleep apnea. 10. Chronically elevated troponins in indeterminate range. PLAN: Plan of care was discussed with the patient in detail and he stated understanding. Job ID: [id number] MTDD
[2018-06-15] MEDS ORDERED: Furosemide 80 MG TAB PO SCH (09:00)
[2018-06-15] MEDS ORDERED: Aspirin 81 mg Enteric Coated Tablet PO SCH (09:00)
[2018-06-15] MEDS ORDERED: Lisinopril 20 MG TAB PO SCH (09:00)
[2018-06-15] MEDS ORDERED: Enoxaparin Sodium 40 MG/0.4 ML SYRINGE SC SCH (09:00)
[2018-06-15] MEDS ORDERED: Digoxin 0.125 MG TAB PO SCH (09:00)
[2018-06-15] MEDS ORDERED: Spironolactone 25 MG TAB PO SCH (09:00)
[2018-06-15] MEDS: Pantoprazole 40 MG VIAL IVP SCH (09:01)
[2018-06-15] MEDS ORDERED: Furosemide 40 MG TAB PO SCH (14:00)
== END 2018-06-15 09:40 | disposition home or self-care (01) ==
LOC: ERS 16:01 → 2SW 19:02
PROVIDERS: ADMIT Internal Medicine; ATTEND Internal Medicine
DX: R07.89 Other chest pain (principal); I11.0 Hypertensive heart disease with heart failure; I50.42 Chronic combined systolic (congestive) and diastolic (congestive) heart failure; E11.9 Type 2 diabetes mellitus without complications; K21.9 Gastro-esophageal reflux disease without esophagitis; I42.0 Dilated cardiomyopathy; I27.20 Pulmonary hypertension, unspecified; G47.33 Obstructive sleep apnea (adult) (pediatric); E78.5 Hyperlipidemia, unspecified; J44.9 Chronic obstructive pulmonary disease, unspecified; F17.290 Nicotine dependence, other tobacco product, uncomplicated; Z86.010 Personal history of colon polyps; Z95.810 Presence of automatic (implantable) cardiac defibrillator; Z90.49 Acquired absence of other specified parts of digestive tract; Z91.018 Allergy to other foods; Z79.84 Long term (current) use of oral hypoglycemic drugs; Z79.82 Long term (current) use of aspirin; Z79.899 Other long term (current) drug therapy; Z98.890 Other specified postprocedural states
CPT/HCPCS: 71045; 80048; 80053; 82550; 82553; 82962 ×2; 83690; 83880; 84484 ×2; 85025 ×2; 93005; 96374; 96375 ×2; 96376; 99285; G0378 ×2; 36415; 36416; C9113; J1650; J1940; J2270; J2405

== ENCOUNTER 2020-06-27 09:54 | Emergency (ER) | payer SELFPAY ==
--- NOTE | 2020-06-27 10:29 | RAD ---
EXAM: Single view of the chest HISTORY: Midsternal chest pain COMPARISON: 06/14/2018 FINDINGS: Single view of the chest shows an enlarged cardiomediastinal silhouette. The patient is st atus post sternotomy. The pacemaker is unchanged in position. There is a metallic structure projecting over the left aspect of the heart which may be something external to the patient or could represent a ventricular assist device. There is no evidence of consolidation, mass, or pleural effusion. No acute osseous abnormality. IMPRESSION: Stable cardiomegaly
[2020-06-27] MEDS ORDERED: Morphine 4 MG/ML VIAL ONE (11:15)
[2020-06-27] MEDS ORDERED: Ketorolac Tromethamine 30 MG/ML VIAL ONE (11:15)
[2020-06-27 11:18] LABS: #Eosinphils 0.1 thou/uL (0.0-0.7); #Lymphocytes 1.4 thou/uL (1.20-3.40); #Monocytes 0.8 thou/uL (0.11-0.59); #Neutrophils 4.5 thou/uL (1.40-6.50); %Basophils 0.5 % (0.0-1.0); %Eosinophils 1.7 % (0.0-10.0); %Lymphocytes 21.1 % (21.0-51.0); %Monocytes 11.6 % (0.0-10.0); %Neutrophils 65.1 % (42.0-75.0); Mean Corpuscular HGB CONC 33.9 g/dL (32.0-36.0); Mean Corpuscular Hemoglobin 30.8 pg (27.0-31.0); Mean Corpuscular Volume 90.8 fL (78.0-98.0); Mean Platelet Volume 8.8 fL (7.4-10.4); Platelet Count 221 thou/uL (130-400); RBC Distribution Width 12.6 % (11.5-14.5); Red Blood Cell (RBC) Count 4.55 mill/uL (4.70-6.10); White Blood Cell (WBC) Count 6.8 thou/uL (4.8-10.8)
[2020-06-27 11:31] LABS: ALT (SGPT) 8 U/L (8-55); AST (SGOT) 31 U/L (5-34); Albumin 3.9 g/dL (3.5-5.0); Alkaline Phosphatase 87 U/L (40-110); Anion Gap 12 mmol/L (10-20); BUN (Urea Nitrogen) 22 mg/dL (8.4-25.7); Bilirubin, Total 0.6 mg/dL (0.2-1.2); CK (CPK) 174 U/L (30-200); Calc. Creatinine Clearance 0 mL/min (70-130); Calcium 8.9 mg/dL (7.8-10.44); Carbon Dioxide 26 mmol/L (22-29); Chloride 102 mmol/L (98-107); Glucose 145 mg/dL (70-105); Potassium 3.6 mmol/L (3.5-5.1); Protein, Total 7.9 g/dL (6.0-8.3); Sodium 136 mmol/L (136-145)
[2020-06-27 11:32] LABS: INR-International Normal Ratio 2.2; PTT 41.9 sec (22.9-36.1); Prothrombin Time 24.5 sec (12.0-14.7)
[2020-06-27 11:49] LABS: CKMB 1.9 ng/mL (0-6.6)
--- NOTE | 2020-07-02 11:11 | EKG ---
Test Reason : ER Blood Pressure : / mmHG Vent. Rate : 089 BPM Atrial Rate : 000 BPM P-R Int : 180 ms QRS Dur : 184 ms QT Int : 500 ms P-R-T Axes : 000 217 069 degrees QTc Int : 608 ms AV dual-paced rhythm Abnormal ECG Confirmed by PURNIMA BASSETT DO ([id number]), dictionary editor CHRIS SULLIVAN ([id number]) on 07/02/2020 11:11:19 AM Referred By: Confirmed By:PURNIMA BASSETT DO
== END 2020-06-27 12:14 | disposition home or self-care (01) ==
LOC: ERS 09:54
DX: R07.89 Other chest pain (principal); E78.5 Hyperlipidemia, unspecified; E78.00 Pure hypercholesterolemia, unspecified; I10 Essential (primary) hypertension; E11.9 Type 2 diabetes mellitus without complications; K21.9 Gastro-esophageal reflux disease without esophagitis; J44.9 Chronic obstructive pulmonary disease, unspecified; F17.220 Nicotine dependence, chewing tobacco, uncomplicated
CPT/HCPCS: 36415; 71045; 80053; 82550; 82553; 84484; 85025; 85610; 85730; 93005; 96374; 96375; J1885; J2270

== ENCOUNTER 2020-10-12 17:00 | Emergency (ER) | payer OTHER | END 2020-10-12 21:22 | disposition home or self-care (01) | LOC: ERS 17:00 | DX: M79.661 Pain in right lower leg (principal); I25.10 Atherosclerotic heart disease of native coronary artery without angina pectoris; I50.9 Heart failure, unspecified; E11.9 Type 2 diabetes mellitus without complications; K21.9 Gastro-esophageal reflux disease without esophagitis; E78.5 Hyperlipidemia, unspecified; E78.00 Pure hypercholesterolemia, unspecified; I10 Essential (primary) hypertension; J44.9 Chronic obstructive pulmonary disease, unspecified; F17.220 Nicotine dependence, chewing tobacco, uncomplicated; Z79.899 Other long term (current) drug therapy ==

== ENCOUNTER 2020-10-30 16:20 | Emergency (ER) | payer OTHER ==
[2020-10-30] MEDS ORDERED: Ketorolac Tromethamine 30 MG/ML VIAL ONE (17:56)
== END 2020-10-30 18:30 | disposition home or self-care (01) ==
LOC: ERS 16:20
DX: R60.0 Localized edema (principal); I50.9 Heart failure, unspecified; E11.9 Type 2 diabetes mellitus without complications; K21.9 Gastro-esophageal reflux disease without esophagitis; E78.5 Hyperlipidemia, unspecified; E78.00 Pure hypercholesterolemia, unspecified; I10 Essential (primary) hypertension; F17.220 Nicotine dependence, chewing tobacco, uncomplicated; Z79.82 Long term (current) use of aspirin; Z79.51 Long term (current) use of inhaled steroids; Z79.899 Other long term (current) drug therapy
CPT/HCPCS: 93005; 96374; J1885

== ENCOUNTER 2020-11-20 17:44 | Emergency (ER) | payer OTHER ==
[2020-11-20] MEDS ORDERED: Lidocaine Viscous Sol 2% 15 ml UD Cup ONE (18:13)
[2020-11-20] MEDS ORDERED: Pantoprazole 40 MG VIAL ONE (18:13)
[2020-11-20] MEDS ORDERED: Mag-Al 1200 mg/1200 mg/30 ML UDCUP ONE (18:13)
[2020-11-20 18:19] LABS: #Eosinphils 0.1 thou/uL (0.0-0.7); #Lymphocytes 1.7 thou/uL (1.20-3.40); #Monocytes 0.7 thou/uL (0.11-0.59); #Neutrophils 3.6 thou/uL (1.40-6.50); %Basophils 0.2 % (0.0-1.0); %Eosinophils 1.9 % (0.0-10.0); %Lymphocytes 27.5 % (21.0-51.0); %Monocytes 11.7 % (0.0-10.0); %Neutrophils 58.7 % (42.0-75.0); Hemoglobin 14.3 g/dL (14.0-18.0); Mean Corpuscular HGB CONC 33.5 g/dL (32.0-36.0); Mean Corpuscular Volume 92.6 fL (78.0-98.0); Platelet Count 203 thou/uL (130-400); RBC Distribution Width 13.6 % (11.5-14.5); White Blood Cell (WBC) Count 6.2 thou/uL (4.8-10.8)
[2020-11-20 18:37] LABS: ALT (SGPT) 8 U/L (8-55); AST (SGOT) 25 U/L (5-34); Albumin 4.1 g/dL (3.5-5.0); Alkaline Phosphatase 93 U/L (40-110); Anion Gap 11 mmol/L (10-20); BUN (Urea Nitrogen) 16 mg/dL (8.4-25.7); Bilirubin, Total 0.8 mg/dL (0.2-1.2); CK (CPK) 123 U/L (30-200); Calc. Creatinine Clearance 0 mL/min (70-130); Calcium 9.7 mg/dL (7.8-10.44); Carbon Dioxide 26 mmol/L (22-29); Chloride 107 mmol/L (98-107); Globulin 3.9 g/dL (2.4-3.5); Glucose 134 mg/dL (70-105); Lipase 25 U/L (8-78); Sodium 140 mmol/L (136-145)
== END 2020-11-20 19:29 | disposition home or self-care (01) ==
LOC: ERS 17:44
DX: K20.90 Esophagitis, unspecified without bleeding (principal); E11.9 Type 2 diabetes mellitus without complications; K21.9 Gastro-esophageal reflux disease without esophagitis; E78.5 Hyperlipidemia, unspecified; I10 Essential (primary) hypertension; J44.9 Chronic obstructive pulmonary disease, unspecified; Z79.82 Long term (current) use of aspirin; Z79.899 Other long term (current) drug therapy
CPT/HCPCS: 71045; 80053; 82550; 83690; 83880; 84484; 85025; 93005; 96374; C9113

== ENCOUNTER 2020-12-31 14:24 | Emergency (ER) | payer OTHER ==
[2020-12-31] MEDS ORDERED: HYDROcodone/Acetaminophen 7.5/325 mg Tablet ONE (15:30)
== END 2020-12-31 15:34 | disposition home or self-care (01) ==
LOC: ERS 14:24
DX: S20.319A Abrasion of unspecified front wall of thorax, initial encounter (principal); S40.812A Abrasion of left upper arm, initial encounter; S40.811A Abrasion of right upper arm, initial encounter; M25.511 Pain in right shoulder; I25.10 Atherosclerotic heart disease of native coronary artery without angina pectoris; I11.0 Hypertensive heart disease with heart failure; I50.9 Heart failure, unspecified; E11.9 Type 2 diabetes mellitus without complications; K21.9 Gastro-esophageal reflux disease without esophagitis; E78.5 Hyperlipidemia, unspecified; E78.00 Pure hypercholesterolemia, unspecified; J44.9 Chronic obstructive pulmonary disease, unspecified; F17.220 Nicotine dependence, chewing tobacco, uncomplicated; Z79.01 Long term (current) use of anticoagulants; Z87.442 Personal history of urinary calculi; Z79.899 Other long term (current) drug therapy; Z79.82 Long term (current) use of aspirin; Z79.1 Long term (current) use of non-steroidal anti-inflammatories (NSAID); W01.0XXA Fall on same level from slipping, tripping and stumbling without subsequent striking against object, initial encounter

== ENCOUNTER 2021-02-11 16:21 | Emergency (ER) | payer MEDICARE ==
[2021-02-11 16:56] LABS: #Eosinphils 0.1 thou/uL (0.0-0.7); #Lymphocytes 1.5 thou/uL (1.20-3.40); #Monocytes 0.9 thou/uL (0.11-0.59); #Neutrophils 4.7 thou/uL (1.40-6.50); %Basophils 0.4 % (0.0-1.0); %Eosinophils 1.6 % (0.0-10.0); %Lymphocytes 20.5 % (21.0-51.0); %Monocytes 12.1 % (0.0-10.0); %Neutrophils 65.3 % (42.0-75.0); Hemoglobin 12.7 g/dL (14.0-18.0); Mean Corpuscular HGB CONC 34.3 g/dL (32.0-36.0); Mean Corpuscular Hemoglobin 32.1 pg (27.0-31.0); Mean Corpuscular Volume 93.6 fL (78.0-98.0); Mean Platelet Volume 8.4 fL (7.4-10.4); Platelet Count 162 thou/uL (130-400); RBC Distribution Width 14.5 % (11.5-14.5); Red Blood Cell (RBC) Count 3.96 mill/uL (4.70-6.10); White Blood Cell (WBC) Count 7.2 thou/uL (4.8-10.8)
[2021-02-11 17:20] LABS: ALT (SGPT) 8 U/L (8-55); AST (SGOT) 21 U/L (5-34); Albumin 4.2 g/dL (3.5-5.0); Alkaline Phosphatase 70 U/L (40-110); Anion Gap 15 mmol/L (10-20); BUN (Urea Nitrogen) 14 mg/dL (8.4-25.7); Bilirubin, Total 0.7 mg/dL (0.2-1.2); CK (CPK) 253 U/L (30-200); Calc. Creatinine Clearance 0 mL/min (70-130); Carbon Dioxide 16 mmol/L (22-29); Chloride 109 mmol/L (98-107); Globulin 3.2 g/dL (2.4-3.5); Glucose 95 mg/dL (70-105); Lipase 26 U/L (8-78); Potassium 3.8 mmol/L (3.5-5.1); Protein, Total 7.4 g/dL (6.0-8.3); Sodium 136 mmol/L (136-145)
[2021-02-11] MEDS ORDERED: Ondansetron PF 4 MG/2 ML Vial ONE (17:40)
[2021-02-11] MEDS ORDERED: Morphine 4 MG/ML VIAL ONE (17:40)
[2021-02-11 17:42] LABS: CKMB 3.5 ng/mL (0-6.6)
[2021-02-11 17:56] LABS: INR-International Normal Ratio 2.9; Prothrombin Time 30.4 sec (12.0-14.7)
[2021-02-11 17:57] LABS: PTT 56.8 sec (22.9-36.1)
[2021-02-11] MEDS ORDERED: Lidocaine Viscous Sol 2% 15 ml UD Cup ONE (18:55)
[2021-02-11] MEDS ORDERED: Mag-Al 1200 mg/1200 mg/30 ML UDCUP ONE (18:55)
== END 2021-02-11 19:28 | disposition home or self-care (01) ==
LOC: ERS 16:21
DX: R07.9 Chest pain, unspecified (principal); I11.0 Hypertensive heart disease with heart failure; I50.9 Heart failure, unspecified; I25.10 Atherosclerotic heart disease of native coronary artery without angina pectoris; E11.9 Type 2 diabetes mellitus without complications; K21.9 Gastro-esophageal reflux disease without esophagitis; E78.5 Hyperlipidemia, unspecified; J44.9 Chronic obstructive pulmonary disease, unspecified; F17.220 Nicotine dependence, chewing tobacco, uncomplicated; Z79.01 Long term (current) use of anticoagulants; Z79.899 Other long term (current) drug therapy
CPT/HCPCS: 36415; 71045; 80053; 82550; 82553; 83690; 84484; 85025; 85610; 85730; 93005; 96374; 96375; J2270; J2405

== ENCOUNTER 2021-02-13 18:35 | Emergency (ER) | payer MEDICARE ==
[2021-02-13 19:33] LABS: #Eosinphils 0.1 thou/uL (0.0-0.7); #Lymphocytes 1.3 thou/uL (1.20-3.40); #Monocytes 0.6 thou/uL (0.11-0.59); #Neutrophils 3.7 thou/uL (1.40-6.50); %Basophils 0.5 % (0.0-1.0); %Eosinophils 1.8 % (0.0-10.0); %Lymphocytes 23.4 % (21.0-51.0); %Monocytes 10.4 % (0.0-10.0); %Neutrophils 63.9 % (42.0-75.0); Hemoglobin 13.2 g/dL (14.0-18.0); Mean Corpuscular HGB CONC 34.1 g/dL (32.0-36.0); Mean Corpuscular Hemoglobin 31.8 pg (27.0-31.0); Mean Corpuscular Volume 93.4 fL (78.0-98.0); Mean Platelet Volume 8.5 fL (7.4-10.4); Platelet Count 190 thou/uL (130-400); RBC Distribution Width 14.5 % (11.5-14.5); Red Blood Cell (RBC) Count 4.15 mill/uL (4.70-6.10); White Blood Cell (WBC) Count 5.7 thou/uL (4.8-10.8)
[2021-02-13 19:54] LABS: ALT (SGPT) 8 U/L (8-55); AST (SGOT) 24 U/L (5-34); Albumin 4.1 g/dL (3.5-5.0); Alkaline Phosphatase 77 U/L (40-110); Anion Gap 13 mmol/L (10-20); BUN (Urea Nitrogen) 14 mg/dL (8.4-25.7); Bilirubin, Total 0.6 mg/dL (0.2-1.2); Calc. Creatinine Clearance 0 mL/min (70-130); Calcium 9.4 mg/dL (7.8-10.44); Carbon Dioxide 18 mmol/L (22-29); Chloride 110 mmol/L (98-107); Globulin 3.7 g/dL (2.4-3.5); Glucose 117 mg/dL (70-105); Lipase 31 U/L (8-78); Potassium 4.4 mmol/L (3.5-5.1); Protein, Total 7.8 g/dL (6.0-8.3); Sodium 137 mmol/L (136-145)
[2021-02-13] MEDS ORDERED: Lidocaine Viscous Sol 2% 15 ml UD Cup ONE (21:16)
[2021-02-13] MEDS ORDERED: Morphine 4 MG/ML VIAL ONE (21:16)
[2021-02-13] MEDS ORDERED: Mag-Al 1200 mg/1200 mg/30 ML UDCUP ONE (21:16)
== END 2021-02-13 23:17 | disposition home or self-care (01) ==
LOC: ERS 18:35
DX: R07.9 Chest pain, unspecified (principal); Z79.899 Other long term (current) drug therapy; Z79.82 Long term (current) use of aspirin; Z79.01 Long term (current) use of anticoagulants; I25.10 Atherosclerotic heart disease of native coronary artery without angina pectoris; I50.9 Heart failure, unspecified; E11.9 Type 2 diabetes mellitus without complications; I11.0 Hypertensive heart disease with heart failure; K21.9 Gastro-esophageal reflux disease without esophagitis; E78.5 Hyperlipidemia, unspecified; E78.00 Pure hypercholesterolemia, unspecified; J44.9 Chronic obstructive pulmonary disease, unspecified; F17.220 Nicotine dependence, chewing tobacco, uncomplicated
CPT/HCPCS: 36415; 80053; 83690; 84484; 85025; 93005; 96374; J2270

== ENCOUNTER 2021-02-20 13:25 | Emergency (ER) | payer MEDICARE ==
[2021-02-20 14:14] LABS: #Eosinphils 0.1 thou/uL (0.0-0.7); #Lymphocytes 1.3 thou/uL (1.20-3.40); #Monocytes 0.8 thou/uL (0.11-0.59); #Neutrophils 4.7 thou/uL (1.40-6.50); %Basophils 0.4 % (0.0-1.0); %Eosinophils 1.2 % (0.0-10.0); %Lymphocytes 18.5 % (21.0-51.0); %Monocytes 11.5 % (0.0-10.0); %Neutrophils 68.4 % (42.0-75.0); Hemoglobin 13.6 g/dL (14.0-18.0); Mean Corpuscular HGB CONC 32.6 g/dL (32.0-36.0); Mean Corpuscular Hemoglobin 30.4 pg (27.0-31.0); Mean Corpuscular Volume 93.4 fL (78.0-98.0); Platelet Count 199 thou/uL (130-400); Red Blood Cell (RBC) Count 4.46 mill/uL (4.70-6.10); White Blood Cell (WBC) Count 6.8 thou/uL (4.8-10.8)
[2021-02-20 14:36] LABS: ALT (SGPT) 8 U/L (8-55); AST (SGOT) 22 U/L (5-34); Albumin 4.2 g/dL (3.5-5.0); Alkaline Phosphatase 74 U/L (40-110); Anion Gap 13 mmol/L (10-20); BUN (Urea Nitrogen) 16 mg/dL (8.4-25.7); Bilirubin, Total 0.7 mg/dL (0.2-1.2); Calc. Creatinine Clearance 0 mL/min (70-130); Calcium 9.6 mg/dL (7.8-10.44); Carbon Dioxide 19 mmol/L (22-29); Chloride 108 mmol/L (98-107); Globulin 3.9 g/dL (2.4-3.5); Glucose 109 mg/dL (70-105); Potassium 4.1 mmol/L (3.5-5.1); Protein, Total 8.1 g/dL (6.0-8.3); Sodium 136 mmol/L (136-145)
[2021-02-20] MEDS ORDERED: Lidocaine Viscous Sol 2% 15 ml UD Cup ONE (16:19)
[2021-02-20] MEDS ORDERED: Milk Of Magnesia 30 ML UDCUP ONE (16:21)
[2021-02-20] MEDS ORDERED: Mag-Al 1200 mg/1200 mg/30 ML UDCUP ONE (16:23)
== END 2021-02-20 17:38 | disposition left against medical advice (07) ==
LOC: ERS 13:25
DX: K29.70 Gastritis, unspecified, without bleeding (principal); I24.9 Acute ischemic heart disease, unspecified; I11.0 Hypertensive heart disease with heart failure; I50.9 Heart failure, unspecified; E11.9 Type 2 diabetes mellitus without complications; Z79.899 Other long term (current) drug therapy
CPT/HCPCS: 36415; 71045; 80053; 83690; 83880; 84484; 85025; 93005; 94760

== ENCOUNTER 2021-03-21 19:16 | Emergency (ER) | payer MEDICARE ==
[2021-03-21 19:55] LABS: #Eosinphils 0.1 thou/uL (0.0-0.7); #Lymphocytes 1.3 thou/uL (1.20-3.40); #Monocytes 0.6 thou/uL (0.11-0.59); #Neutrophils 3.2 thou/uL (1.40-6.50); %Basophils 0.4 % (0.0-1.0); %Eosinophils 2.3 % (0.0-10.0); %Lymphocytes 24.1 % (21.0-51.0); %Monocytes 12.2 % (0.0-10.0); %Neutrophils 60.9 % (42.0-75.0); Hemoglobin 12.7 g/dL (14.0-18.0); Mean Corpuscular HGB CONC 32.7 g/dL (32.0-36.0); Mean Corpuscular Hemoglobin 31.6 pg (27.0-31.0); Mean Corpuscular Volume 96.5 fL (78.0-98.0); Mean Platelet Volume 9.3 fL (7.4-10.4); Platelet Count 156 thou/uL (130-400); RBC Distribution Width 13.9 % (11.5-14.5); Red Blood Cell (RBC) Count 4.04 mill/uL (4.70-6.10); White Blood Cell (WBC) Count 5.2 thou/uL (4.8-10.8)
[2021-03-21 20:06] LABS: PTT 41.1 sec (22.9-36.1); Prothrombin Time 22.8 sec (12.0-14.7)
[2021-03-21 20:17] LABS: ALT (SGPT) 8 U/L (8-55); AST (SGOT) 18 U/L (5-34); Albumin 4.1 g/dL (3.5-5.0); Alkaline Phosphatase 71 U/L (40-110); Anion Gap 11 mmol/L (10-20); BUN (Urea Nitrogen) 14 mg/dL (8.4-25.7); Bilirubin, Total 0.5 mg/dL (0.2-1.2); Calc. Creatinine Clearance 0 mL/min (70-130); Calcium 9.2 mg/dL (7.8-10.44); Carbon Dioxide 23 mmol/L (22-29); Chloride 107 mmol/L (98-107); Globulin 3.4 g/dL (2.4-3.5); Glucose 137 mg/dL (70-105); Potassium 4.1 mmol/L (3.5-5.1); Protein, Total 7.5 g/dL (6.0-8.3); Sodium 137 mmol/L (136-145)
[2021-03-21] MEDS ORDERED: Lidocaine Viscous Sol 2% 15 ml UD Cup ONE (20:43)
[2021-03-21] MEDS ORDERED: Morphine 4 MG/ML VIAL ONE (20:43)
[2021-03-21] MEDS ORDERED: Mag-Al 1200 mg/1200 mg/30 ML UDCUP ONE (20:43)
[2021-03-21] MEDS ORDERED: Carvedilol 6.25 MG TAB PO SCH (21:30)
[2021-03-21] MEDS ORDERED: hydrALAZINE 25 MG TAB PO SCH (21:45)
== END 2021-03-21 22:44 | disposition home or self-care (01) ==
LOC: ERS 19:16
DX: R07.9 Chest pain, unspecified (principal); G89.29 Other chronic pain; I11.0 Hypertensive heart disease with heart failure; I50.9 Heart failure, unspecified; E11.9 Type 2 diabetes mellitus without complications; K21.9 Gastro-esophageal reflux disease without esophagitis; J44.9 Chronic obstructive pulmonary disease, unspecified; F17.220 Nicotine dependence, chewing tobacco, uncomplicated
CPT/HCPCS: 36415; 71045; 80053; 83010; 83615; 83880; 84484; 85025; 85384; 85610; 85730; 93005; 96374; J2270

== ENCOUNTER 2021-03-25 14:48 | Emergency (ER) | payer MEDICARE ==
[2021-03-25] MEDS ORDERED: Mag-Al 1200 mg/1200 mg/30 ML UDCUP ONE (15:40)
[2021-03-25] MEDS ORDERED: Lidocaine Viscous Sol 2% 15 ml UD Cup ONE (15:40)
[2021-03-25] MEDS ORDERED: Morphine 4 MG/ML VIAL ONE (15:41)
[2021-03-25] MEDS ORDERED: Morphine 4 MG/ML VIAL IM SCH (15:45)
== END 2021-03-25 16:07 | disposition home or self-care (01) ==
LOC: ERS 14:48
DX: R10.13 Epigastric pain (principal); I11.0 Hypertensive heart disease with heart failure; I50.9 Heart failure, unspecified; E11.9 Type 2 diabetes mellitus without complications; J44.9 Chronic obstructive pulmonary disease, unspecified; F17.220 Nicotine dependence, chewing tobacco, uncomplicated; Z79.899 Other long term (current) drug therapy
CPT/HCPCS: 96372; 99283; J2270

== ENCOUNTER 2021-04-18 19:34 | Emergency (ER) | payer MEDICARE ==
[2021-04-18 20:08] LABS: #Basophils 0.1 thou/uL (0.0-0.2); #Eosinphils 0.1 thou/uL (0.0-0.7); #Lymphocytes 1.5 thou/uL (1.20-3.40); #Monocytes 0.5 thou/uL (0.11-0.59); #Neutrophils 2.4 thou/uL (1.40-6.50); %Basophils 1.2 % (0.0-1.0); %Eosinophils 1.8 % (0.0-10.0); %Lymphocytes 32.6 % (21.0-51.0); %Monocytes 11.7 % (0.0-10.0); %Neutrophils 52.7 % (42.0-75.0); Hemoglobin 14.2 g/dL (14.0-18.0); Mean Corpuscular HGB CONC 34.1 g/dL (32.0-36.0); Mean Corpuscular Hemoglobin 32.5 pg (27.0-31.0); Mean Corpuscular Volume 95.5 fL (78.0-98.0); Mean Platelet Volume 9.5 fL (7.4-10.4); Platelet Count 169 thou/uL (130-400); RBC Distribution Width 13.1 % (11.5-14.5); Red Blood Cell (RBC) Count 4.36 mill/uL (4.70-6.10); White Blood Cell (WBC) Count 4.6 thou/uL (4.8-10.8)
[2021-04-18 20:28] LABS: ALT (SGPT) 7 U/L (8-55); AST (SGOT) 20 U/L (5-34); Alkaline Phosphatase 81 U/L (40-110); Anion Gap 15 mmol/L (10-20); BUN (Urea Nitrogen) 12 mg/dL (8.4-25.7); Bilirubin, Total 0.6 mg/dL (0.2-1.2); CK (CPK) 136 U/L (30-200); Calc. Creatinine Clearance 0 mL/min (70-130); Calcium 9.2 mg/dL (7.8-10.44); Carbon Dioxide 19 mmol/L (22-29); Chloride 109 mmol/L (98-107); Globulin 3.5 g/dL (2.4-3.5); Glucose 150 mg/dL (70-105); Potassium 4.2 mmol/L (3.5-5.1); Protein, Total 7.5 g/dL (6.0-8.3); Sodium 139 mmol/L (136-145)
[2021-04-18] MEDS ORDERED: Aspirin Chewable 81 MG TAB ONE (21:22)
[2021-04-18] MEDS ORDERED: HYDROcodone/Acetaminophen 10/325 mg Tablet ONE (21:22)
[2021-04-18] MEDS ORDERED: Morphine 4 MG/ML VIAL ONE (23:01)
[2021-04-18 23:51] LABS: Troponin I 0.014 ng/mL (< 0.028)
== END 2021-04-19 00:24 | disposition home or self-care (01) ==
LOC: ERS 19:34
DX: R07.2 Precordial pain (principal); I11.0 Hypertensive heart disease with heart failure; I50.9 Heart failure, unspecified; E11.9 Type 2 diabetes mellitus without complications; K21.9 Gastro-esophageal reflux disease without esophagitis; E78.00 Pure hypercholesterolemia, unspecified; J44.9 Chronic obstructive pulmonary disease, unspecified; F17.210 Nicotine dependence, cigarettes, uncomplicated; Z79.82 Long term (current) use of aspirin; Z79.01 Long term (current) use of anticoagulants; Z79.899 Other long term (current) drug therapy
CPT/HCPCS: 36415; 71045; 80053; 82550; 83690; 84484; 85025; 93005; 96374; J2270

== ENCOUNTER 2021-05-12 16:39 | Emergency (ER) | payer MEDICARE ==
[2021-05-12 18:17] LABS: #Eosinphils 0.1 thou/uL (0.0-0.7); #Monocytes 0.7 thou/uL (0.11-0.59); #Neutrophils 3.5 thou/uL (1.40-6.50); %Basophils 0.4 % (0.0-1.0); %Eosinophils 1.5 % (0.0-10.0); %Lymphocytes 19.1 % (21.0-51.0); %Monocytes 13.4 % (0.0-10.0); %Neutrophils 65.5 % (42.0-75.0); Hemoglobin 12.5 g/dL (14.0-18.0); Mean Corpuscular Hemoglobin 31.8 pg (27.0-31.0); Mean Corpuscular Volume 96.5 fL (78.0-98.0); Mean Platelet Volume 9.4 fL (7.4-10.4); Platelet Count 127 thou/uL (130-400); RBC Distribution Width 13.3 % (11.5-14.5); Red Blood Cell (RBC) Count 3.92 mill/uL (4.70-6.10); White Blood Cell (WBC) Count 5.4 thou/uL (4.8-10.8)
[2021-05-12] MEDS ORDERED: Fentanyl 100 MCG/2 ML VIAL ONE (18:41)
[2021-05-12 18:51] LABS: ALT (SGPT) Less than 7 U/L (8-55); AST (SGOT) 18 U/L (5-34); Albumin 3.8 g/dL (3.5-5.0); Alkaline Phosphatase 74 U/L (40-110); Anion Gap 10 mmol/L (10-20); BUN (Urea Nitrogen) 15 mg/dL (8.4-25.7); Bilirubin, Total 0.7 mg/dL (0.2-1.2); CK (CPK) 154 U/L (30-200); Calc. Creatinine Clearance 0 mL/min (70-130); Carbon Dioxide 23 mmol/L (22-29); Chloride 108 mmol/L (98-107); Globulin 3.5 g/dL (2.4-3.5); Glucose 134 mg/dL (70-105); Lipase 14 U/L (8-78); Protein, Total 7.3 g/dL (6.0-8.3); Sodium 137 mmol/L (136-145)
[2021-05-12 18:59] LABS: Bacteria/HPF None Seen HPF (None Seen); Bilirubin Negative (Negative); Blood, Urine Negative (Negative); Clarity Clear (Clear); Glucose, Urine (Dipstick) 50 mg/dL (Negative); Ketone, Urine Negative (Negative); Leukocyte Negative Leu/uL (Negative); Nitrite Negative (Negative); Protein, Urine (Dipstick) 70 mg/dL (Neg-Trace); RBC/HPF 0-3 HPF (0-3); Specific Gravity, Urine 1.031 (1.002-1.036); Squamous Epithelial None Seen HPF (0-3); Urobilinogen Normal mg/dL (Less than 2); pH, Urine 5.5 (5.0-9.0)
[2021-05-12] MEDS ORDERED: Mag-Al 1200 mg/1200 mg/30 ML UDCUP ONE (20:11)
[2021-05-12] MEDS ORDERED: Lidocaine Viscous Sol 2% 15 ml UD Cup ONE (20:11)
== END 2021-05-12 20:04 | disposition home or self-care (01) ==
LOC: ERS 16:39
DX: R07.89 Other chest pain (principal); R06.02 Shortness of breath; I11.0 Hypertensive heart disease with heart failure; I50.9 Heart failure, unspecified; I25.10 Atherosclerotic heart disease of native coronary artery without angina pectoris; E78.00 Pure hypercholesterolemia, unspecified; F17.220 Nicotine dependence, chewing tobacco, uncomplicated; Z87.442 Personal history of urinary calculi; Z79.899 Other long term (current) drug therapy; Z79.82 Long term (current) use of aspirin; Z79.1 Long term (current) use of non-steroidal anti-inflammatories (NSAID); Z87.19 Personal history of other diseases of the digestive system
CPT/HCPCS: 36415; 71045; 80053; 81003; 81015; 82550; 83690; 84484; 85025; 93005; 96374; J3010

== ENCOUNTER 2021-05-15 14:32 | Emergency (ER) | payer MEDICARE ==
[2021-05-15 15:53] LABS: #Eosinphils 0.1 thou/uL (0.0-0.7); #Monocytes 0.8 thou/uL (0.11-0.59); #Neutrophils 3.8 thou/uL (1.40-6.50); %Basophils 0.4 % (0.0-1.0); %Eosinophils 1.5 % (0.0-10.0); %Monocytes 13.9 % (0.0-10.0); %Neutrophils 66.2 % (42.0-75.0); Hemoglobin 13.5 g/dL (14.0-18.0); Mean Corpuscular HGB CONC 32.1 g/dL (32.0-36.0); Mean Corpuscular Hemoglobin 31.1 pg (27.0-31.0); Mean Corpuscular Volume 96.9 fL (78.0-98.0); Mean Platelet Volume 9.1 fL (7.4-10.4); Platelet Count 129 thou/uL (130-400); RBC Distribution Width 13.3 % (11.5-14.5); Red Blood Cell (RBC) Count 4.33 mill/uL (4.70-6.10); White Blood Cell (WBC) Count 5.7 thou/uL (4.8-10.8)
[2021-05-15 16:47] LABS: ALT (SGPT) 7 U/L (8-55); AST (SGOT) 28 U/L (5-34); Albumin 4.1 g/dL (3.5-5.0); Alkaline Phosphatase 78 U/L (40-110); Anion Gap 15 mmol/L (10-20); BUN (Urea Nitrogen) 13 mg/dL (8.4-25.7); Calc. Creatinine Clearance 0 mL/min (70-130); Calcium 9.3 mg/dL (7.8-10.44); Carbon Dioxide 20 mmol/L (22-29); Chloride 107 mmol/L (98-107); Globulin 4.3 g/dL (2.4-3.5); Glucose 110 mg/dL (70-105); Lipase 16 U/L (8-78); Potassium 4.8 mmol/L (3.5-5.1); Protein, Total 8.4 g/dL (6.0-8.3); Sodium 137 mmol/L (136-145)
== END 2021-05-15 18:00 | disposition home or self-care (01) ==
LOC: ERS 14:32
DX: R10.13 Epigastric pain (principal); I11.0 Hypertensive heart disease with heart failure; I50.9 Heart failure, unspecified; E11.9 Type 2 diabetes mellitus without complications; K21.9 Gastro-esophageal reflux disease without esophagitis; E78.00 Pure hypercholesterolemia, unspecified; J44.9 Chronic obstructive pulmonary disease, unspecified; F17.220 Nicotine dependence, chewing tobacco, uncomplicated; Z79.01 Long term (current) use of anticoagulants; Z79.899 Other long term (current) drug therapy
CPT/HCPCS: 36415; 80053; 83690; 84484; 85025; 93005

== ENCOUNTER 2021-06-19 15:18 | Emergency (ER) | payer MEDICARE ==
[2021-06-19 16:07] LABS: #Lymphocytes 1.4 thou/uL (1.20-3.40); #Monocytes 0.7 thou/uL (0.11-0.59); #Neutrophils 3.7 thou/uL (1.40-6.50); %Basophils 0.7 % (0.0-1.0); %Eosinophils 0.8 % (0.0-10.0); %Lymphocytes 23.4 % (21.0-51.0); %Monocytes 12.1 % (0.0-10.0); %Neutrophils 62.9 % (42.0-75.0); Hemoglobin 14.3 g/dL (14.0-18.0); Mean Corpuscular HGB CONC 32.8 g/dL (32.0-36.0); Mean Corpuscular Hemoglobin 31.2 pg (27.0-31.0); Mean Corpuscular Volume 95.2 fL (78.0-98.0); Mean Platelet Volume 9.2 fL (7.4-10.4); Platelet Count 145 thou/uL (130-400); RBC Distribution Width 13.1 % (11.5-14.5); Red Blood Cell (RBC) Count 4.57 mill/uL (4.70-6.10); White Blood Cell (WBC) Count 5.9 thou/uL (4.8-10.8)
[2021-06-19 16:27] LABS: ALT (SGPT) 11 U/L (8-55); AST (SGOT) 22 U/L (5-34); Albumin 4.1 g/dL (3.5-5.0); Alkaline Phosphatase 83 U/L (40-110); Anion Gap 13 mmol/L (10-20); BUN (Urea Nitrogen) 15 mg/dL (8.4-25.7); Bilirubin, Total 1.4 mg/dL (0.2-1.2); Calc. Creatinine Clearance 0 mL/min (70-130); Calcium 9.9 mg/dL (7.8-10.44); Carbon Dioxide 27 mmol/L (22-29); Chloride 104 mmol/L (98-107); Globulin 3.6 g/dL (2.4-3.5); Glucose 125 mg/dL (70-105); Lipase 21 U/L (8-78); Potassium 4.3 mmol/L (3.5-5.1); Protein, Total 7.7 g/dL (6.0-8.3); Sodium 140 mmol/L (136-145)
[2021-06-19] MEDS ORDERED: Sucralfate 1 GM/10 ML UDCUP ONE (17:24)
[2021-06-19] MEDS ORDERED: Lidocaine Viscous Sol 2% 15 ml UD Cup ONE (19:00)
== END 2021-06-19 19:09 | disposition home or self-care (01) ==
LOC: ERS 15:18
DX: R07.89 Other chest pain (principal); I50.9 Heart failure, unspecified; E11.9 Type 2 diabetes mellitus without complications; K21.9 Gastro-esophageal reflux disease without esophagitis; I10 Essential (primary) hypertension; E78.00 Pure hypercholesterolemia, unspecified; J44.9 Chronic obstructive pulmonary disease, unspecified; I25.10 Atherosclerotic heart disease of native coronary artery without angina pectoris; F17.220 Nicotine dependence, chewing tobacco, uncomplicated; Z79.82 Long term (current) use of aspirin; Z79.899 Other long term (current) drug therapy
CPT/HCPCS: 36415; 71045; 80053; 83690; 83880; 84484; 85025; 93005

== ENCOUNTER 2021-12-04 01:54 | Emergency (ER) | payer MEDICARE ==
[2021-12-04] MEDS ORDERED: Diazepam 5 MG TAB ONE (02:35)
[2021-12-04 03:16] LABS: INR-International Normal Ratio 1.5; Prothrombin Time 17.9 sec (12.0-14.7)
== END 2021-12-04 05:15 | disposition home or self-care (01) ==
LOC: ERS 01:54
DX: R51.9 Headache, unspecified (principal); I11.0 Hypertensive heart disease with heart failure; I50.9 Heart failure, unspecified; I25.10 Atherosclerotic heart disease of native coronary artery without angina pectoris; E11.9 Type 2 diabetes mellitus without complications; K21.9 Gastro-esophageal reflux disease without esophagitis; E78.00 Pure hypercholesterolemia, unspecified; J44.9 Chronic obstructive pulmonary disease, unspecified; F17.220 Nicotine dependence, chewing tobacco, uncomplicated; Z87.442 Personal history of urinary calculi; Z95.0 Presence of cardiac pacemaker
CPT/HCPCS: 36415; 70450; 85610

== ENCOUNTER 2021-12-05 10:12 | Outpatient (CLI) | payer MEDICARE | END 2021-12-05 10:13 | disposition home or self-care (01) | LOC: TBSIIMAG 10:12 | DX: S12.100A Unspecified displaced fracture of second cervical vertebra, initial encounter for closed fracture (principal); M47.812 Spondylosis without myelopathy or radiculopathy, cervical region | CPT/HCPCS: 72040 ==

== ENCOUNTER 2021-12-11 18:50 | Inpatient (IN) | payer MEDICARE ==
[~2021-12-11 18:50] MED LIST: Iopamidol-370 76% 500 ML 1 ML ONE
[2021-12-11 19:49] LABS: #Eosinphils 0.1 thou/uL (0.0-0.7); #Lymphocytes 0.7 thou/uL (1.20-3.40); #Monocytes 0.8 thou/uL (0.11-0.59); #Neutrophils 7.3 thou/uL (1.40-6.50); %Basophils 0.5 % (0.0-1.0); %Eosinophils 0.6 % (0.0-10.0); %Lymphocytes 7.5 % (21.0-51.0); %Monocytes 8.5 % (0.0-10.0); %Neutrophils 82.9 % (42.0-75.0); Hemoglobin 10.1 g/dL (14.0-18.0); Mean Corpuscular HGB CONC 32.6 g/dL (32.0-36.0); Mean Platelet Volume 7.5 fL (7.4-10.4); Platelet Count 231 thou/uL (130-400); RBC Distribution Width 16.2 % (11.5-14.5); Red Blood Cell (RBC) Count 3.28 mill/uL (4.70-6.10); White Blood Cell (WBC) Count 8.8 thou/uL (4.8-10.8)
[2021-12-11 20:12] LABS: ALT (SGPT) Less than 7 U/L (8-55); AST (SGOT) 18 U/L (5-34); Albumin 3.7 g/dL (3.5-5.0); Alkaline Phosphatase 142 U/L (40-110); Anion Gap 15 mmol/L (10-20); BUN (Urea Nitrogen) 12 mg/dL (8.4-25.7); Bilirubin, Total 0.7 mg/dL (0.2-1.2); Calc. Creatinine Clearance 0 mL/min (70-130); Calcium 9.7 mg/dL (7.8-10.44); Carbon Dioxide 22 mmol/L (22-29); Chloride 108 mmol/L (98-107); Globulin 4.6 g/dL (2.4-3.5); Glucose 138 mg/dL (70-105); Lipase 14 U/L (8-78); Potassium 3.7 mmol/L (3.5-5.1); Protein, Total 8.3 g/dL (6.0-8.3); Sodium 141 mmol/L (136-145)
[2021-12-11 20:30] LABS: Bilirubin Negative (Negative); Blood, Urine Negative (Negative); Clarity Clear (Clear); Glucose, Urine (Dipstick) Normal (Negative); Ketone, Urine Negative (Negative); Leukocyte Negative Leu/uL (Negative); Nitrite Negative (Negative); Protein, Urine (Dipstick) Negative (Neg-Trace); Specific Gravity, Urine 1.014 (1.002-1.036); Urobilinogen Normal mg/dL (Less than 2)
[2021-12-11] MEDS ORDERED: Morphine 4 MG/ML VIAL ONE (20:31)
[2021-12-12] MEDS ORDERED: Cefepime 2 GM VIAL ONE
[2021-12-12] MEDS ORDERED: Vancomycin 1 GM/200 ML BAG ONE (01:06)
[2021-12-12] MEDS ORDERED: Sodium Chloride 0.9% 1,000 ML IV SCH (02:15)
[2021-12-12 02:36] LABS: Magnesium 1.3 mg/dL (1.6-2.6)
[2021-12-12 03:24] VITALS: BMI 29.3
[2021-12-12] MEDS: HYDROcodone/Acetaminophen 10/325 mg Tablet PO PRN ×3 (04:00→21:28)
[2021-12-12] MEDS ORDERED: Communication Order-Pharmacy FS PRN (04:32)
[2021-12-12] MEDS ORDERED: Ondansetron PF 4 MG/2 ML Vial IVP PRN (04:32)
[2021-12-12] MEDS ORDERED: Lidocaine Viscous Sol 2% 15 ml UD Cup SSW PRN (04:32)
[2021-12-12] MEDS ORDERED: Ondansetron ODT 4 MG TAB PO PRN (04:32)
[2021-12-12] MEDS ORDERED: Acetaminophen 500 MG TAB PO PRN (04:32)
[2021-12-12] MEDS ORDERED: Albuterol Sulfate 2.5 mg/3 ml Neb NEB PRN (04:55)
[2021-12-12] MEDS ORDERED: Cyclobenzaprine 10 MG TAB PO PRN (04:56)
[2021-12-12] MEDS ORDERED: Magnesium 2 GM/50 ML(in water) 2 GM in Premix Bag 1 BAG IVPB SCH (05:00)
[2021-12-12] MEDS: Sodium Chloride 0.9% 1,000 ML IV SCH (05:06)
[2021-12-12] MEDS: Nicotine 14 MG PATCH TD SCH (05:15)
[2021-12-12 06:42] LABS: INR-International Normal Ratio 1.5
[2021-12-12] MEDS ORDERED: Ondansetron PF 4 MG/2 ML Vial ONE (06:51)
[2021-12-12] MEDS ORDERED: Morphine 4 MG/ML VIAL ONE (06:51)
[2021-12-12] MEDS ORDERED: Cefepime 2 GM in Sodium Chloride 0.9% 100 ML IVPB SCH (08:00)
[2021-12-12] MEDS: Gabapentin 400 MG CAP PO SCH ×3 (09:40→21:19)
[2021-12-12] MEDS: Aspirin 81 mg Enteric Coated Tablet PO SCH (09:40)
[2021-12-12] MEDS: Acetaminophen/Codeine 30-300mg Tablet PO PRN ×2 (09:40→21:29)
[2021-12-12] MEDS: Cefepime 2 GM in Sodium Chloride 0.9% 100 ML IVPB SCH ×2 (09:41→17:27)
[2021-12-12] MEDS: Famotidine 20 MG TAB PO SCH ×2 (09:41→21:19)
[2021-12-12] MEDS: Ferrous Sulfate 325 MG TAB PO SCH (09:41)
[2021-12-12] MEDS: Magnesium Oxide 400 MG TAB PO SCH ×2 (09:41→17:27)
[2021-12-12] MEDS: Amiodarone 200 MG TAB PO SCH (09:41)
[2021-12-12] MEDS: Bupropion 150 MG XL TAB PO SCH (09:41)
[2021-12-12] MEDS ORDERED: Vancomycin 1 GM in Premix Bag 1 BAG IVPB SCH (13:00)
[2021-12-12] MEDS ORDERED: Warfarin Sodium 1 MG TAB PO SCH (17:00)
[2021-12-12] MEDS ORDERED: Latanoprost 0.005% Ophth Soln 2.5 ml Bottle EA EYE SCH (21:00)
[2021-12-12] MEDS ORDERED: Tamsulosin HCl 0.4 MG CAP PO SCH (21:00)
[2021-12-12] MEDS ORDERED: traZODone HCl 50 MG TAB PO SCH (21:00)
[2021-12-13] MEDS ORDERED: Cefepime 2 GM VIAL ONE (00:22)
[2021-12-13] MEDS: Cefepime 2 GM in Sodium Chloride 0.9% 100 ML IVPB SCH ×2 (00:26→13:23)
[2021-12-13] MEDS: Sodium Chloride 0.9% 1,000 ML IV SCH (00:26)
[2021-12-13] MEDS: Nicotine 14 MG PATCH TD SCH (05:46)
[2021-12-13 07:24] LABS: #Eosinphils 0.2 thou/uL (0.0-0.7); #Lymphocytes 0.8 thou/uL (1.20-3.40); #Monocytes 0.7 thou/uL (0.11-0.59); %Basophils 0.2 % (0.0-1.0); %Eosinophils 4.5 % (0.0-10.0); %Lymphocytes 16.3 % (21.0-51.0); %Monocytes 14.3 % (0.0-10.0); %Neutrophils 64.7 % (42.0-75.0); Hemoglobin 8.8 g/dL (14.0-18.0); Mean Corpuscular HGB CONC 31.6 g/dL (32.0-36.0); Mean Corpuscular Hemoglobin 30.2 pg (27.0-31.0); Mean Corpuscular Volume 95.6 fL (78.0-98.0); Mean Platelet Volume 7.6 fL (7.4-10.4); Platelet Count 161 thou/uL (130-400); Red Blood Cell (RBC) Count 2.93 mill/uL (4.70-6.10); White Blood Cell (WBC) Count 4.6 thou/uL (4.8-10.8)
[2021-12-13] MEDS: Famotidine 20 MG TAB PO SCH (07:30)
[2021-12-13] MEDS: Magnesium Oxide 400 MG TAB PO SCH (07:30)
[2021-12-13] MEDS: Gabapentin 400 MG CAP PO SCH ×2 (07:30→13:22)
[2021-12-13] MEDS: Aspirin 81 mg Enteric Coated Tablet PO SCH (07:30)
[2021-12-13] MEDS: Bupropion 150 MG XL TAB PO SCH (07:30)
[2021-12-13] MEDS: Amiodarone 200 MG TAB PO SCH (07:30)
[2021-12-13] MEDS: Ferrous Sulfate 325 MG TAB PO SCH (07:31)
[2021-12-13 07:42] LABS: ALT (SGPT) Less than 7 U/L (8-55); AST (SGOT) 20 U/L (5-34); Alkaline Phosphatase 114 U/L (40-110); Anion Gap 12 mmol/L (10-20); BUN (Urea Nitrogen) 8 mg/dL (8.4-25.7); Bilirubin, Total 0.8 mg/dL (0.2-1.2); Calc. Creatinine Clearance 152 mL/min (70-130); Calcium 8.6 mg/dL (7.8-10.44); Carbon Dioxide 22 mmol/L (22-29); Chloride 108 mmol/L (98-107); Globulin 3.6 g/dL (2.4-3.5); Glucose 100 mg/dL (70-105); Potassium 3.6 mmol/L (3.5-5.1); Protein, Total 6.6 g/dL (6.0-8.3); Sodium 138 mmol/L (136-145)
[2021-12-13 07:47] LABS: INR-International Normal Ratio 1.6; Prothrombin Time 18.9 sec (12.0-14.7)
[2021-12-13 07:53] VITALS: TEMP 96.6
[2021-12-13 12:17] VITALS: BP 118/65
[2021-12-13] MEDS: HYDROcodone/Acetaminophen 10/325 mg Tablet PO PRN (13:21)
[2021-12-13] MEDS ORDERED: Lidocaine 5% Patch TD SCH (15:00)
[2021-12-14] MEDS ORDERED: Transdermal Patch Removal TOP SCH ×2 (03:00→21:00)
[2021-12-14] MEDS ORDERED: Lidocaine 5% Patch TD SCH (09:00)
== END 2021-12-13 16:27 | disposition home or self-care (01) | DRG 391 ==
LOC: ERS 18:50 → ERHOLD 23:36 → CCU 12-12 01:47 → IMCU/EMU 12-12 16:19
PROVIDERS: ADMIT Family Medicine; ATTEND Internal Medicine
DX: R10.9 Unspecified abdominal pain (principal); J96.21 Acute and chronic respiratory failure with hypoxia; J98.11 Atelectasis; I50.22 Chronic systolic (congestive) heart failure; I42.9 Cardiomyopathy, unspecified; J90 Pleural effusion, not elsewhere classified; Z20.822 Contact with and (suspected) exposure to COVID-19; E83.42 Hypomagnesemia; K21.9 Gastro-esophageal reflux disease without esophagitis; R51.9 Headache, unspecified; E78.5 Hyperlipidemia, unspecified; I11.0 Hypertensive heart disease with heart failure; I25.10 Atherosclerotic heart disease of native coronary artery without angina pectoris; E11.9 Type 2 diabetes mellitus without complications; G47.33 Obstructive sleep apnea (adult) (pediatric); E78.00 Pure hypercholesterolemia, unspecified; F32.A Depression, unspecified; F17.220 Nicotine dependence, chewing tobacco, uncomplicated; Z87.442 Personal history of urinary calculi; Z99.81 Dependence on supplemental oxygen; Z95.810 Presence of automatic (implantable) cardiac defibrillator; Z90.49 Acquired absence of other specified parts of digestive tract; Z79.891 Long term (current) use of opiate analgesic; Z79.899 Other long term (current) drug therapy; Z79.01 Long term (current) use of anticoagulants; Z82.49 Family history of ischemic heart disease and other diseases of the circulatory system; Z91.014 Allergy to mammalian meats; Z93.3 Colostomy status
CPT/HCPCS: 36415; 71045; 74177; 80053; 81003; 83605; 83690; 83735; 84145; 84484; 85025; 85610; 87040; 93005; 96374; 96375; J0692; J1956; J2270; J2405; J3370; J3475; J3490; J7050; Q9967; U0003; U0005

== ENCOUNTER 2021-12-25 02:13 | Emergency (ER) | payer MEDICARE ==
[2021-12-25] MEDS ORDERED: Ketorolac Tromethamine 30 MG/ML VIAL ONE (04:58)
[2021-12-25] MEDS ORDERED: Diazepam 5 MG TAB ONE (04:58)
== END 2021-12-25 05:35 | disposition home or self-care (01) ==
LOC: ERS 02:13
DX: R51.9 Headache, unspecified (principal); I11.0 Hypertensive heart disease with heart failure; I50.9 Heart failure, unspecified; I25.10 Atherosclerotic heart disease of native coronary artery without angina pectoris; K21.9 Gastro-esophageal reflux disease without esophagitis; E78.00 Pure hypercholesterolemia, unspecified; J44.9 Chronic obstructive pulmonary disease, unspecified; F17.220 Nicotine dependence, chewing tobacco, uncomplicated
CPT/HCPCS: 96372; 99283; J1885

== ENCOUNTER 2022-01-11 09:59 | Emergency (ER) | payer MEDICARE, SELFPAY ==
[2022-01-11] MEDS ORDERED: HYDROcodone/Acetaminophen 10/325 mg Tablet ONE (11:57)
== END 2022-01-11 12:00 | disposition home or self-care (01) ==
LOC: ERS 09:59
DX: R51.9 Headache, unspecified (principal); E11.9 Type 2 diabetes mellitus without complications; I11.0 Hypertensive heart disease with heart failure; I50.9 Heart failure, unspecified; K21.9 Gastro-esophageal reflux disease without esophagitis; E78.00 Pure hypercholesterolemia, unspecified; J44.9 Chronic obstructive pulmonary disease, unspecified; F17.220 Nicotine dependence, chewing tobacco, uncomplicated; Z79.899 Other long term (current) drug therapy; Z79.82 Long term (current) use of aspirin; Z79.01 Long term (current) use of anticoagulants
CPT/HCPCS: 99283

== ENCOUNTER 2022-01-14 13:35 | Emergency (ER) | payer SELFPAY ==
[2022-01-14 14:42] LABS: #Basophils 0.1 thou/uL (0.0-0.2); #Eosinphils 0.1 thou/uL (0.0-0.7); #Lymphocytes 1.5 thou/uL (1.20-3.40); #Monocytes 0.7 thou/uL (0.11-0.59); #Neutrophils 5.2 thou/uL (1.40-6.50); %Basophils 0.7 % (0.0-1.0); %Eosinophils 1.4 % (0.0-10.0); %Lymphocytes 19.9 % (21.0-51.0); %Monocytes 9.8 % (0.0-10.0); %Neutrophils 68.3 % (42.0-75.0); Hemoglobin 12.6 g/dL (14.0-18.0); Mean Corpuscular HGB CONC 32.4 g/dL (32.0-36.0); Mean Corpuscular Hemoglobin 30.8 pg (27.0-31.0); Mean Corpuscular Volume 95.2 fL (78.0-98.0); Mean Platelet Volume 10.3 fL (7.4-10.4); Platelet Count 184 thou/uL (130-400); RBC Distribution Width 15.2 % (11.5-14.5); White Blood Cell (WBC) Count 7.6 thou/uL (4.8-10.8)
[2022-01-14] MEDS ORDERED: Acetaminophen 500 MG TAB ONE ×2 (14:53)
[2022-01-14 15:07] LABS: ALT (SGPT) 9 U/L (8-55); AST (SGOT) 33 U/L (5-34); Alkaline Phosphatase 140 U/L (40-110); Anion Gap 18 mmol/L (10-20); BUN (Urea Nitrogen) 17 mg/dL (8.4-25.7); Bilirubin, Total 0.8 mg/dL (0.2-1.2); Calc. Creatinine Clearance 0 mL/min (70-130); Calcium 10.1 mg/dL (7.8-10.44); Carbon Dioxide 23 mmol/L (22-29); Chloride 102 mmol/L (98-107); Estimated GFR 80; Globulin 5.3 g/dL (2.4-3.5); Glucose 194 mg/dL (70-105); Lipase 23 U/L (8-78); Potassium 4.8 mmol/L (3.5-5.1); Protein, Total 9.3 g/dL (6.0-8.3); Sodium 138 mmol/L (136-145)
[2022-01-14] MEDS ORDERED: Potassium Chloride 20 MEQ TAB ONE (15:13)
[2022-01-14] MEDS ORDERED: Morphine 4 MG/ML VIAL ONE ×2 (15:24→17:35)
[2022-01-14 17:02] LABS: Troponin I 0.022 ng/mL (< 0.028)
== END 2022-01-14 17:42 | disposition home or self-care (01) ==
LOC: ERS 13:35
DX: G89.29 Other chronic pain (principal); R07.2 Precordial pain; I45.4 Nonspecific intraventricular block; I11.0 Hypertensive heart disease with heart failure; I50.9 Heart failure, unspecified; I25.10 Atherosclerotic heart disease of native coronary artery without angina pectoris; K21.9 Gastro-esophageal reflux disease without esophagitis; E11.9 Type 2 diabetes mellitus without complications; J44.9 Chronic obstructive pulmonary disease, unspecified; F17.220 Nicotine dependence, chewing tobacco, uncomplicated; Z87.442 Personal history of urinary calculi; Z79.82 Long term (current) use of aspirin; Z79.899 Other long term (current) drug therapy; Z95.0 Presence of cardiac pacemaker
CPT/HCPCS: 36415; 71045; 80053; 83690; 84484; 85025; 93005; 96374; 96376; J2270

== ENCOUNTER 2022-01-18 19:37 | Emergency (ER) | payer MEDICARE, OTHER, SELFPAY ==
[2022-01-18 20:58] LABS: #Eosinphils 0.1 thou/uL (0.0-0.7); #Lymphocytes 1.6 thou/uL (1.20-3.40); #Monocytes 0.9 thou/uL (0.11-0.59); #Neutrophils 5.5 thou/uL (1.40-6.50); %Basophils 0.3 % (0.0-1.0); %Eosinophils 1.2 % (0.0-10.0); %Lymphocytes 19.7 % (21.0-51.0); %Monocytes 11.2 % (0.0-10.0); %Neutrophils 67.5 % (42.0-75.0); Hemoglobin 11.8 g/dL (14.0-18.0); Mean Corpuscular HGB CONC 31.9 g/dL (32.0-36.0); Mean Corpuscular Hemoglobin 30.5 pg (27.0-31.0); Mean Corpuscular Volume 95.4 fL (78.0-98.0); Mean Platelet Volume 9.6 fL (7.4-10.4); Platelet Count 176 thou/uL (130-400); RBC Distribution Width 15.1 % (11.5-14.5); Red Blood Cell (RBC) Count 3.89 mill/uL (4.70-6.10); White Blood Cell (WBC) Count 8.1 thou/uL (4.8-10.8)
[2022-01-18 21:21] LABS: ALT (SGPT) 13 U/L (8-55); AST (SGOT) 35 U/L (5-34); Albumin 4.1 g/dL (3.5-5.0); Alkaline Phosphatase 144 U/L (40-110); Anion Gap 14 mmol/L (10-20); BUN (Urea Nitrogen) 16 mg/dL (8.4-25.7); Bilirubin, Total 0.5 mg/dL (0.2-1.2); Calc. Creatinine Clearance 0 mL/min (70-130); Calcium 10.1 mg/dL (7.8-10.44); Carbon Dioxide 27 mmol/L (22-29); Chloride 103 mmol/L (98-107); Estimated GFR 67; Globulin 4.8 g/dL (2.4-3.5); Glucose 99 mg/dL (70-105); Lipase 30 U/L (8-78); Protein, Total 8.9 g/dL (6.0-8.3); Sodium 140 mmol/L (136-145)
[2022-01-18 21:41] LABS: CKMB 1.5 ng/mL (0-6.6)
[2022-01-18] MEDS ORDERED: HYDROcodone/Acetaminophen 5/325 mg Tablet ONE (21:52)
== END 2022-01-18 21:58 | disposition home or self-care (01) ==
LOC: ERS 19:37
DX: R07.2 Precordial pain (principal); I11.0 Hypertensive heart disease with heart failure; I50.9 Heart failure, unspecified; I25.10 Atherosclerotic heart disease of native coronary artery without angina pectoris; E11.9 Type 2 diabetes mellitus without complications; K21.9 Gastro-esophageal reflux disease without esophagitis; E78.00 Pure hypercholesterolemia, unspecified; J44.9 Chronic obstructive pulmonary disease, unspecified; F17.220 Nicotine dependence, chewing tobacco, uncomplicated; Z79.899 Other long term (current) drug therapy; Z79.51 Long term (current) use of inhaled steroids; Z79.82 Long term (current) use of aspirin
CPT/HCPCS: 36415; 71045; 80053; 82553; 83690; 84484; 85025; 93005

== ENCOUNTER 2022-01-28 10:10 | Emergency (ER) | payer MEDICARE ==
[2022-01-28] MEDS ORDERED: Pantoprazole 40 MG VIAL ONE (10:29)
[2022-01-28] MEDS ORDERED: Sucralfate 1 GM/10 ML UDCUP ONE (10:29)
[2022-01-28 10:47] LABS: #Eosinphils 0.1 thou/uL (0.0-0.7); #Lymphocytes 1.4 thou/uL (1.20-3.40); #Monocytes 0.7 thou/uL (0.11-0.59); #Neutrophils 4.8 thou/uL (1.40-6.50); %Basophils 0.2 % (0.0-1.0); %Eosinophils 1.4 % (0.0-10.0); %Lymphocytes 19.4 % (21.0-51.0); %Monocytes 10.7 % (0.0-10.0); %Neutrophils 68.3 % (42.0-75.0); Hemoglobin 13.6 g/dL (14.0-18.0); Mean Corpuscular HGB CONC 32.8 g/dL (32.0-36.0); Mean Corpuscular Volume 91.5 fL (78.0-98.0); Mean Platelet Volume 9.3 fL (7.4-10.4); Platelet Count 183 thou/uL (130-400); Red Blood Cell (RBC) Count 4.52 mill/uL (4.70-6.10)
[2022-01-28 11:09] LABS: ALT (SGPT) 15 U/L (8-55); AST (SGOT) 33 U/L (5-34); Albumin 4.2 g/dL (3.5-5.0); Alkaline Phosphatase 157 U/L (40-110); Anion Gap 17 mmol/L (10-20); BUN (Urea Nitrogen) 20 mg/dL (8.4-25.7); Bilirubin, Total 0.6 mg/dL (0.2-1.2); Calc. Creatinine Clearance 0 mL/min (70-130); Carbon Dioxide 19 mmol/L (22-29); Chloride 104 mmol/L (98-107); Estimated GFR 69; Globulin 5.3 g/dL (2.4-3.5); Glucose 147 mg/dL (70-105); Lipase 32 U/L (8-78); Potassium 4.5 mmol/L (3.5-5.1); Protein, Total 9.5 g/dL (6.0-8.3); Sodium 135 mmol/L (136-145)
[2022-01-28] MEDS ORDERED: Ondansetron PF 4 MG/2 ML Vial ONE (11:35)
[2022-01-28] MEDS ORDERED: Morphine 4 MG/ML VIAL ONE (11:35)
[2022-01-28] MEDS ORDERED: Acetaminophen 500 MG TAB ONE (11:35)
== END 2022-01-28 12:50 | disposition home or self-care (01) ==
LOC: ERS 10:10
DX: K29.70 Gastritis, unspecified, without bleeding (principal); I25.10 Atherosclerotic heart disease of native coronary artery without angina pectoris; E11.9 Type 2 diabetes mellitus without complications; I11.0 Hypertensive heart disease with heart failure; I50.9 Heart failure, unspecified; E78.00 Pure hypercholesterolemia, unspecified; J44.9 Chronic obstructive pulmonary disease, unspecified; K21.9 Gastro-esophageal reflux disease without esophagitis; F17.220 Nicotine dependence, chewing tobacco, uncomplicated; Z79.82 Long term (current) use of aspirin; Z79.899 Other long term (current) drug therapy
CPT/HCPCS: 71045; 80053; 83690; 84484; 85025; 93005; 96361; 96374; 96375; C9113; J2270; J2405

== ENCOUNTER 2022-02-05 19:22 | Emergency (ER) | payer MEDICARE | END 2022-02-05 20:49 | disposition left against medical advice (07) | LOC: ERS 19:22 | DX: Z53.21 Procedure and treatment not carried out due to patient leaving prior to being seen by health care provider (principal) ==

== ENCOUNTER 2022-02-09 15:40 | Emergency (ER) | payer MEDICARE ==
[2022-02-09] MEDS ORDERED: Morphine 4 MG/ML VIAL ONE (16:10)
[2022-02-09] MEDS ORDERED: Mag-Al 1200 mg/1200 mg/30 ML UDCUP ONE (16:10)
[2022-02-09] MEDS ORDERED: Lidocaine Viscous Sol 2% 15 ml UD Cup ONE (16:10)
[2022-02-09 16:40] LABS: #Eosinphils 0.1 thou/uL (0.0-0.7); #Lymphocytes 1.3 thou/uL (1.20-3.40); %Basophils 0.4 % (0.0-1.0); %Eosinophils 1.7 % (0.0-10.0); %Lymphocytes 15.6 % (21.0-51.0); %Monocytes 11.3 % (0.0-10.0); %Neutrophils 70.9 % (42.0-75.0); Hemoglobin 11.4 g/dL (14.0-18.0); Mean Corpuscular HGB CONC 32.4 g/dL (32.0-36.0); Mean Corpuscular Hemoglobin 29.6 pg (27.0-31.0); Mean Corpuscular Volume 91.2 fL (78.0-98.0); Mean Platelet Volume 8.9 fL (7.4-10.4); Platelet Count 165 thou/uL (130-400); RBC Distribution Width 14.8 % (11.5-14.5); Red Blood Cell (RBC) Count 3.86 mill/uL (4.70-6.10); White Blood Cell (WBC) Count 8.4 thou/uL (4.8-10.8)
[2022-02-09 16:53] LABS: INR-International Normal Ratio 1.3; Prothrombin Time 15.9 sec (12.0-14.7)
[2022-02-09 16:54] LABS: PTT 34.3 sec (22.9-36.1)
[2022-02-09 17:03] LABS: ALT (SGPT) 11 U/L (8-55); AST (SGOT) 33 U/L (5-34); Albumin 4.1 g/dL (3.5-5.0); Alkaline Phosphatase 154 U/L (40-110); Anion Gap 15 mmol/L (10-20); BUN (Urea Nitrogen) 20 mg/dL (8.4-25.7); Bilirubin, Total 0.6 mg/dL (0.2-1.2); Calc. Creatinine Clearance 0 mL/min (70-130); Calcium 9.5 mg/dL (7.8-10.44); Carbon Dioxide 21 mmol/L (22-29); Chloride 103 mmol/L (98-107); Estimated GFR 60; Globulin 4.5 g/dL (2.4-3.5); Glucose 112 mg/dL (70-105); Lipase 26 U/L (8-78); Potassium 4.1 mmol/L (3.5-5.1); Protein, Total 8.6 g/dL (6.0-8.3); Sodium 135 mmol/L (136-145)
== END 2022-02-09 17:36 | disposition home or self-care (01) ==
LOC: ERS 15:40
DX: K20.90 Esophagitis, unspecified without bleeding (principal); E11.9 Type 2 diabetes mellitus without complications; I11.0 Hypertensive heart disease with heart failure; I50.9 Heart failure, unspecified; E78.00 Pure hypercholesterolemia, unspecified; Z79.82 Long term (current) use of aspirin; Z79.01 Long term (current) use of anticoagulants; Z79.899 Other long term (current) drug therapy
CPT/HCPCS: 36415; 80053; 83690; 85025; 85610; 85730; 96372; 99284; J2270

== ENCOUNTER 2022-02-14 10:54 | Emergency (ER) | payer MEDICARE ==
[2022-02-14] MEDS ORDERED: Aspirin 325 MG TAB ONE (11:13)
[2022-02-14 11:51] LABS: #Basophils 0.1 thou/uL (0.0-0.2); #Eosinphils 0.1 thou/uL (0.0-0.7); #Lymphocytes 1.3 thou/uL (1.20-3.40); #Neutrophils 6.4 thou/uL (1.40-6.50); %Basophils 0.6 % (0.0-1.0); %Eosinophils 1.4 % (0.0-10.0); %Lymphocytes 14.9 % (21.0-51.0); %Monocytes 10.9 % (0.0-10.0); %Neutrophils 72.2 % (42.0-75.0); Hemoglobin 11.6 g/dL (14.0-18.0); Mean Corpuscular HGB CONC 32.1 g/dL (32.0-36.0); Mean Corpuscular Hemoglobin 30.3 pg (27.0-31.0); Mean Corpuscular Volume 94.4 fL (78.0-98.0); Mean Platelet Volume 9.7 fL (7.4-10.4); Platelet Count 182 thou/uL (130-400); RBC Distribution Width 15.8 % (11.5-14.5); Red Blood Cell (RBC) Count 3.84 mill/uL (4.70-6.10); White Blood Cell (WBC) Count 8.9 thou/uL (4.8-10.8)
[2022-02-14 12:12] LABS: ALT (SGPT) 12 U/L (8-55); AST (SGOT) 30 U/L (5-34); Albumin 3.9 g/dL (3.5-5.0); Alkaline Phosphatase 156 U/L (40-110); Anion Gap 15 mmol/L (10-20); BUN (Urea Nitrogen) 16 mg/dL (8.4-25.7); Bilirubin, Total 0.4 mg/dL (0.2-1.2); Calc. Creatinine Clearance 0 mL/min (70-130); Calcium 9.4 mg/dL (7.8-10.44); Carbon Dioxide 18 mmol/L (22-29); Chloride 106 mmol/L (98-107); Estimated GFR 70; Globulin 4.2 g/dL (2.4-3.5); Glucose 145 mg/dL (70-105); Potassium 5.1 mmol/L (3.5-5.1); Protein, Total 8.1 g/dL (6.0-8.3); Sodium 134 mmol/L (136-145)
== END 2022-02-14 12:06 | disposition left against medical advice (07) ==
LOC: ERS 10:54
DX: R07.2 Precordial pain (principal); I11.0 Hypertensive heart disease with heart failure; I50.9 Heart failure, unspecified; E11.9 Type 2 diabetes mellitus without complications; E78.00 Pure hypercholesterolemia, unspecified; F17.220 Nicotine dependence, chewing tobacco, uncomplicated; Z79.82 Long term (current) use of aspirin; Z79.01 Long term (current) use of anticoagulants; Z79.899 Other long term (current) drug therapy
CPT/HCPCS: 36415; 71045; 80053; 83880; 84484; 85025; 93005

== ENCOUNTER 2022-02-22 19:16 | Emergency (ER) | payer MEDICARE ==
[2022-02-22] MEDS ORDERED: Acetaminophen 500 MG TAB ONE (20:28)
[2022-02-22 21:10] LABS: Bilirubin Negative (Negative); Blood, Urine Negative (Negative); Clarity Clear (Clear); Glucose, Urine (Dipstick) Normal (Negative); Ketone, Urine Negative (Negative); Leukocyte Negative Leu/uL (Negative); Nitrite Negative (Negative); Protein, Urine (Dipstick) 10 mg/dL (Neg-Trace); Specific Gravity, Urine 1.021 (1.002-1.036); Urobilinogen Normal mg/dL (Less than 2)
== END 2022-02-22 21:23 | disposition home or self-care (01) ==
LOC: ERS 19:16
DX: M54.50 Low back pain, unspecified (principal); G89.29 Other chronic pain; E11.9 Type 2 diabetes mellitus without complications; E78.00 Pure hypercholesterolemia, unspecified; I11.0 Hypertensive heart disease with heart failure; I50.9 Heart failure, unspecified; I48.91 Unspecified atrial fibrillation; F17.220 Nicotine dependence, chewing tobacco, uncomplicated; Z79.899 Other long term (current) drug therapy; Z79.01 Long term (current) use of anticoagulants; Z79.82 Long term (current) use of aspirin
CPT/HCPCS: 81003; 93005

== ENCOUNTER 2022-09-14 13:04 | Emergency (ER) | payer MEDICARE ==
[2022-09-14 14:09] LABS: CKMB 6.5 ng/mL (0-6.6)
[2022-09-14 14:17] LABS: Hemoglobin 13.7 g/dL (14.0-18.0); Mean Corpuscular HGB CONC 33.5 g/dL (32.0-36.0); Mean Corpuscular Hemoglobin 31.5 pg (27.0-31.0); Mean Platelet Volume 9.9 fL (7.4-10.4); Platelet Count 115 10x3/uL (130-400); RBC Distribution Width 13.7 % (11.5-14.5); Red Blood Cell (RBC) Count 4.34 mill/uL (4.70-6.10); White Blood Cell (WBC) Count 6.2 10x3/uL (4.8-10.8)
[2022-09-14 14:39] LABS: #Eosinphils 0.1 thou/uL (0.0-0.7); #Lymphocytes 1.2 thou/uL (1.20-3.40); #Monocytes 0.6 thou/uL (0.11-0.59); #Neutrophils 4.3 thou/uL (1.40-6.50); %Basophils 0.4 % (0.0-1.0); %Eosinophils 1.3 % (0.0-10.0); %Lymphocytes 19.9 % (21.0-51.0); %Monocytes 9.3 % (0.0-10.0); Platelet Morphology Comment Appears Decreased; RBC Morphology Normal
[2022-09-14] MEDS ORDERED: Morphine 10 MG/ML VIAL ONE (14:44)
[2022-09-14 15:57] LABS: ALT (SGPT) 21 U/L (8-55); AST (SGOT) 52 U/L (5-34); Albumin 3.9 g/dL (3.5-5.0); Alkaline Phosphatase 129 U/L (40-110); Anion Gap 13 mmol/L (10-20); BUN (Urea Nitrogen) 26 mg/dL (8.4-25.7); Bilirubin, Total 0.6 mg/dL (0.2-1.2); Calc. Creatinine Clearance 0 mL/min (70-130); Calcium 9.3 mg/dL (7.8-10.44); Carbon Dioxide 17 mmol/L (22-29); Chloride 112 mmol/L (98-107); Estimated GFR 62; Globulin 3.2 g/dL (2.4-3.5); Glucose 106 mg/dL (70-105); Protein, Total 7.1 g/dL (6.0-8.3); Sodium 138 mmol/L (136-145)
== END 2022-09-14 16:30 | disposition home or self-care (01) ==
LOC: ERS 13:04
DX: R07.9 Chest pain, unspecified (principal); G89.29 Other chronic pain; I11.0 Hypertensive heart disease with heart failure; I50.9 Heart failure, unspecified; J44.9 Chronic obstructive pulmonary disease, unspecified; F17.220 Nicotine dependence, chewing tobacco, uncomplicated; Z95.811 Presence of heart assist device
CPT/HCPCS: 36415; 71045; 80053; 82553; 83690; 83880; 84484; 85025; 93005; 96372; J2270

== ENCOUNTER 2023-01-01 11:18 | Emergency (ER) | payer MEDICARE ==
[2023-01-01 12:03] LABS: #Eosinphils 0.1 thou/uL (0.0-0.7); #Monocytes 0.6 thou/uL (0.11-0.59); #Neutrophils 2.8 thou/uL (1.40-6.50); %Basophils 0.7 % (0.0-1.0); %Eosinophils 1.6 % (0.0-10.0); %Lymphocytes 18.1 % (21.0-51.0); %Monocytes 12.9 % (0.0-10.0); %Neutrophils 65.8 % (42.0-75.0); Hemoglobin 12.1 g/dL (14.0-18.0); Mean Corpuscular HGB CONC 32.3 g/dL (32.0-36.0); Mean Corpuscular Hemoglobin 32.8 pg (27.0-31.0); Mean Corpuscular Volume 101.6 fl (78.0-98.0); Mean Platelet Volume 11.5 fL (7.4-10.4); Platelet Count 126 10x3/uL (130-400); RBC Distribution Width 14.3 % (11.5-14.5); Red Blood Cell (RBC) Count 3.69 mill/uL (4.70-6.10); White Blood Cell (WBC) Count 4.3 10x3/uL (4.8-10.8)
[2023-01-01 12:17] LABS: PTT 33.6 sec (22.9-36.1); Prothrombin Time 23.2 sec (12.0-14.7)
[2023-01-01 12:24] LABS: ALT (SGPT) 9 U/L (8-55); AST (SGOT) 21 U/L (5-34); Albumin 4.2 g/dL (3.5-5.0); Alkaline Phosphatase 94 U/L (40-110); Anion Gap 14 mmol/L (10-20); BUN (Urea Nitrogen) 19 mg/dL (8.4-25.7); Bilirubin, Total 0.5 mg/dL (0.2-1.2); Calc. Creatinine Clearance 0 mL/min (70-130); Calcium 9.1 mg/dL (7.8-10.44); Carbon Dioxide 19 mmol/L (22-29); Chloride 110 mmol/L (98-107); Estimated GFR 70; Globulin 3.4 g/dL (2.4-3.5); Glucose 167 mg/dL (70-105); Lipase 33 U/L (8-78); Potassium 3.5 mmol/L (3.5-5.1); Protein, Total 7.6 g/dL (6.0-8.3); Sodium 139 mmol/L (136-145)
[2023-01-01] MEDS ORDERED: Morphine 4 MG/ML VIAL ONE ×2 (12:44→14:57)
[2023-01-01 12:46] LABS: CKMB 2.4 ng/mL (0-6.6)
[2023-01-01] MEDS ORDERED: Iopamidol-370 76% 500 ML MDV (1 ML CHARGE) ONE (13:29)
[2023-01-01 15:04] LABS: Bacteria/HPF None Seen HPF (None Seen); Bilirubin Negative (Negative); Blood, Urine Negative (Negative); CAUTI Indications for Culture Pelvic or flank pain; Clarity Clear (Clear); Glucose, Urine (Dipstick) Normal (Negative); Ketone, Urine Negative (Negative); Leukocyte Negative Leu/uL (Negative); Nitrite Negative (Negative); Protein, Urine (Dipstick) Negative (Neg-Trace); RBC/HPF None Seen HPF (0-3); Squamous Epithelial None Seen HPF (0-3); Urobilinogen Normal mg/dL (Less than 2); WBC/HPF 0-3 HPF (0-3); pH, Urine 5.5 (5.0-9.0)
[2023-01-01 15:06] LABS: Urine Culture Reflex No No
== END 2023-01-01 15:28 | disposition home or self-care (01) ==
LOC: ERS 11:18
DX: R10.13 Epigastric pain (principal); R77.8 Other specified abnormalities of plasma proteins; N32.89 Other specified disorders of bladder; D72.819 Decreased white blood cell count, unspecified; I11.0 Hypertensive heart disease with heart failure; I50.9 Heart failure, unspecified; J44.9 Chronic obstructive pulmonary disease, unspecified; F17.290 Nicotine dependence, other tobacco product, uncomplicated
CPT/HCPCS: 36415; 71045; 74177; 80053; 81001; 82553; 83690; 84484; 85025; 85610; 85730; 86850; 86900; 86901; 87086; 93005; 96374; 96376; J2270

== ENCOUNTER 2023-01-12 19:08 | Emergency (ER) | payer MEDICARE ==
[2023-01-12] MEDS ORDERED: HYDROmorphone 0.5 MG/0.5 ML SYRINGE ONE (19:28)
[2023-01-12 19:35] LABS: #Basophils 0.1 thou/uL (0.0-0.2); #Eosinphils 0.1 thou/uL (0.0-0.7); #Neutrophils 4.1 thou/uL (1.40-6.50); %Basophils 0.9 % (0.0-1.0); %Eosinophils 1.3 % (0.0-10.0); %Lymphocytes 23.9 % (21.0-51.0); %Monocytes 14.3 % (0.0-10.0); %Neutrophils 58.9 % (42.0-75.0); Hemoglobin 13.7 g/dL (14.0-18.0); Mean Corpuscular HGB CONC 31.9 g/dL (32.0-36.0); Mean Corpuscular Hemoglobin 31.9 pg (27.0-31.0); Mean Platelet Volume 11.5 fL (7.4-10.4); Platelet Count 164 10x3/uL (130-400); RBC Distribution Width 13.5 % (11.5-14.5)
[2023-01-12 19:53] LABS: ALT (SGPT) 26 U/L (8-55); AST (SGOT) 62 U/L (5-34); Albumin 4.4 g/dL (3.5-5.0); Alkaline Phosphatase 101 U/L (40-110); Anion Gap 18 mmol/L (10-20); BUN (Urea Nitrogen) 17 mg/dL (8.4-25.7); Bilirubin, Total 0.5 mg/dL (0.2-1.2); Calc. Creatinine Clearance 0 mL/min (70-130); Calcium 10.1 mg/dL (7.8-10.44); Carbon Dioxide 17 mmol/L (22-29); Chloride 108 mmol/L (98-107); Estimated GFR 57; Globulin 4.3 g/dL (2.4-3.5); Glucose 226 mg/dL (70-105); Potassium 3.9 mmol/L (3.5-5.1); Protein, Total 8.7 g/dL (6.0-8.3); Sodium 139 mmol/L (136-145)
[2023-01-13 01:00] LABS: CKMB 3.4 ng/mL (0-6.6)
== END 2023-01-12 21:02 | disposition home or self-care (01) ==
LOC: ERS 19:08
DX: R10.13 Epigastric pain (principal); I11.0 Hypertensive heart disease with heart failure; I50.9 Heart failure, unspecified; J44.9 Chronic obstructive pulmonary disease, unspecified; F17.290 Nicotine dependence, other tobacco product, uncomplicated; Z79.82 Long term (current) use of aspirin; Z79.899 Other long term (current) drug therapy; Z79.51 Long term (current) use of inhaled steroids; Z79.01 Long term (current) use of anticoagulants
CPT/HCPCS: 80053; 82553; 84484; 85025; 93005; 94760; 96374; J1170

== ENCOUNTER 2023-02-10 14:55 | Emergency (ER) | payer MEDICARE, OTHER ==
[2023-02-10 15:24] LABS: #Eosinphils 0.1 thou/uL (0.0-0.7); #Monocytes 0.8 thou/uL (0.11-0.59); #Neutrophils 5.5 thou/uL (1.40-6.50); %Basophils 0.4 % (0.0-1.0); %Eosinophils 1.4 % (0.0-10.0); %Lymphocytes 18.4 % (21.0-51.0); %Monocytes 10.4 % (0.0-10.0); %Neutrophils 68.7 % (42.0-75.0); Hematocrit 45.3 % (42.0-52.0); Hemoglobin 15.1 g/dL (14.0-18.0); Mean Corpuscular HGB CONC 33.3 g/dL (32.0-36.0); Mean Corpuscular Hemoglobin 31.7 pg (27.0-31.0); Mean Corpuscular Volume 95.2 fl (78.0-98.0); Mean Platelet Volume 11.5 fL (7.4-10.4); Platelet Count 150 10x3/uL (130-400); RBC Distribution Width 13.3 % (11.5-14.5); Red Blood Cell (RBC) Count 4.76 mill/uL (4.70-6.10)
[2023-02-10 15:41] LABS: ALT (SGPT) 19 U/L (8-55); AST (SGOT) 47 U/L (5-34); Albumin 4.6 g/dL (3.5-5.0); Alkaline Phosphatase 95 U/L (40-110); Anion Gap 15 mmol/L (10-20); BUN (Urea Nitrogen) 21 mg/dL (8.4-25.7); Bilirubin, Total 0.5 mg/dL (0.2-1.2); Calc. Creatinine Clearance 0 mL/min (70-130); Calcium 9.7 mg/dL (7.8-10.44); Carbon Dioxide 17 mmol/L (22-29); Chloride 108 mmol/L (98-107); Estimated GFR 65; Globulin 4.4 g/dL (2.4-3.5); Glucose 129 mg/dL (70-105); Potassium 4.2 mmol/L (3.5-5.1); Sodium 136 mmol/L (136-145)
[2023-02-10 15:45] LABS: Troponin I Less than 0.010 ng/mL (< 0.028)
[2023-02-10] MEDS ORDERED: Morphine 4 MG/ML VIAL ONE (15:57)
[2023-02-10] MEDS ORDERED: Ondansetron PF 4 MG/2 ML Vial ONE (15:57)
== END 2023-02-10 16:47 | disposition home or self-care (01) ==
LOC: ERS 14:55
DX: R10.13 Epigastric pain (principal); I11.0 Hypertensive heart disease with heart failure; I50.9 Heart failure, unspecified; J44.9 Chronic obstructive pulmonary disease, unspecified; F17.290 Nicotine dependence, other tobacco product, uncomplicated; Z79.01 Long term (current) use of anticoagulants; Z79.899 Other long term (current) drug therapy; Z79.51 Long term (current) use of inhaled steroids; Z79.82 Long term (current) use of aspirin
CPT/HCPCS: 71045; 80053; 83690; 84484; 85025; 93005; 96374; 96375; J2270; J2405

== ENCOUNTER 2023-02-17 17:52 | Emergency (ER) | payer OTHER ==
[2023-02-17] MEDS ORDERED: Mag-Al 1200 mg/1200 mg/30 ML UDCUP ONE (18:24)
[2023-02-17] MEDS ORDERED: Famotidine 20 MG TAB ONE (18:24)
[2023-02-17] MEDS ORDERED: Sucralfate 1 GM/10 ML UDCUP ONE (18:24)
[2023-02-17] MEDS ORDERED: Lidocaine 2% Viscous Solution 10 ML, Aluminum & Magnesium Hydroxide 30 ML SSW SCH (18:30)
[2023-02-17 19:42] LABS: #Eosinphils 0.1 thou/uL (0.0-0.7); #Monocytes 0.9 thou/uL (0.11-0.59); #Neutrophils 4.7 thou/uL (1.40-6.50); %Basophils 0.6 % (0.0-1.0); %Eosinophils 1.3 % (0.0-10.0); %Lymphocytes 18.9 % (21.0-51.0); %Monocytes 12.1 % (0.0-10.0); %Neutrophils 66.2 % (42.0-75.0); Hematocrit 37.8 % (42.0-52.0); Hemoglobin 12.1 g/dL (14.0-18.0); Mean Corpuscular Hemoglobin 31.3 pg (27.0-31.0); Mean Corpuscular Volume 97.7 fl (78.0-98.0); Mean Platelet Volume 11.8 fL (7.4-10.4); RBC Distribution Width 13.7 % (11.5-14.5); Red Blood Cell (RBC) Count 3.87 mill/uL (4.70-6.10)
[2023-02-17 19:43] LABS: Platelet Count 116 10x3/uL (130-400)
[2023-02-17 20:03] LABS: ALT (SGPT) 16 U/L (8-55); AST (SGOT) 38 U/L (5-34); Albumin 3.7 g/dL (3.5-5.0); Alkaline Phosphatase 75 U/L (40-110); Anion Gap 13 mmol/L (10-20); BUN (Urea Nitrogen) 20 mg/dL (8.4-25.7); Bilirubin, Total 0.5 mg/dL (0.2-1.2); Calc. Creatinine Clearance 0 mL/min (70-130); Calcium 9.1 mg/dL (7.8-10.44); Carbon Dioxide 18 mmol/L (22-29); Chloride 112 mmol/L (98-107); Estimated GFR 83; Globulin 3.4 g/dL (2.4-3.5); Glucose 121 mg/dL (70-105); Potassium 3.6 mmol/L (3.5-5.1); Protein, Total 7.1 g/dL (6.0-8.3); Sodium 139 mmol/L (136-145)
[2023-02-17 20:06] LABS: Troponin I 0.015 ng/mL (< 0.028)
== END 2023-02-17 20:45 | disposition home or self-care (01) ==
LOC: ERS 17:52
DX: K42.9 Umbilical hernia without obstruction or gangrene (principal); K44.9 Diaphragmatic hernia without obstruction or gangrene; I11.0 Hypertensive heart disease with heart failure; I50.9 Heart failure, unspecified; J44.9 Chronic obstructive pulmonary disease, unspecified; F17.200 Nicotine dependence, unspecified, uncomplicated; Z79.01 Long term (current) use of anticoagulants
CPT/HCPCS: 36415; 71045; 80053; 83880; 84484; 85025; 93005

== ENCOUNTER 2023-03-31 18:46 | Emergency (ER) | payer MEDICARE ==
[2023-03-31 19:35] LABS: #Eosinphils 0.1 thou/uL (0.0-0.7); #Monocytes 0.6 thou/uL (0.11-0.59); #Neutrophils 3.2 thou/uL (1.40-6.50); %Basophils 0.6 % (0.0-1.0); %Eosinophils 1.4 % (0.0-10.0); %Lymphocytes 20.9 % (21.0-51.0); %Monocytes 12.9 % (0.0-10.0); %Neutrophils 63.6 % (42.0-75.0); Hematocrit 36.9 % (42.0-52.0); Hemoglobin 11.6 g/dL (14.0-18.0); Mean Corpuscular HGB CONC 31.4 g/dL (32.0-36.0); Mean Corpuscular Volume 101.7 fl (78.0-98.0); Mean Platelet Volume 11.9 fL (7.4-10.4); RBC Distribution Width 15.1 % (11.5-14.5); Red Blood Cell (RBC) Count 3.63 mill/uL (4.70-6.10)
[2023-03-31 19:46] LABS: Platelet Count 133 10x3/uL (130-400)
[2023-03-31 20:02] LABS: ALT (SGPT) Less than 7 U/L (8-55); AST (SGOT) 24 U/L (5-34); Albumin 4.1 g/dL (3.5-5.0); Alkaline Phosphatase 83 U/L (40-110); Anion Gap 14 mmol/L (10-20); BUN (Urea Nitrogen) 17 mg/dL (8.4-25.7); Bilirubin, Total 0.6 mg/dL (0.2-1.2); Calc. Creatinine Clearance 0 mL/min (70-130); Calcium 9.1 mg/dL (7.8-10.44); Carbon Dioxide 18 mmol/L (22-29); Chloride 111 mmol/L (98-107); Estimated GFR 62; Globulin 3.8 g/dL (2.4-3.5); Glucose 127 mg/dL (70-105); Lipase 24 U/L (8-78); Magnesium 1.7 mg/dL (1.6-2.6); Potassium 4.1 mmol/L (3.5-5.1); Protein, Total 7.9 g/dL (6.0-8.3); Sodium 139 mmol/L (136-145); Troponin I 0.022 ng/mL (< 0.028)
[2023-03-31] MEDS ORDERED: Mag-Al 1200 mg/1200 mg/30 ML UDCUP ONE (20:13)
[2023-03-31] MEDS ORDERED: Lidocaine 2% Viscous Solution 10 ML, Aluminum & Magnesium Hydroxide 30 ML SSW SCH (20:30)
[2023-03-31] MEDS ORDERED: Famotidine/PF 20 mg/2ml Vial ONE (20:51)
[2023-03-31] MEDS ORDERED: Morphine 4 MG/ML VIAL ONE (20:51)
== END 2023-03-31 21:59 | disposition home or self-care (01) ==
LOC: ERS 18:46
DX: R10.13 Epigastric pain (principal); I11.0 Hypertensive heart disease with heart failure; I50.9 Heart failure, unspecified; J44.9 Chronic obstructive pulmonary disease, unspecified; F17.290 Nicotine dependence, other tobacco product, uncomplicated; Z79.899 Other long term (current) drug therapy; Z79.01 Long term (current) use of anticoagulants; Z79.82 Long term (current) use of aspirin
CPT/HCPCS: 36415; 71045; 80053; 83690; 83735; 83880; 84484; 85025; 93005; 96374; 96375; J2270; S0028

== ENCOUNTER 2023-04-17 17:27 | Emergency (ER) | payer MEDICARE, OTHER ==
[2023-04-17 19:04] LABS: #Eosinphils 0.1 thou/uL (0.0-0.7); #Monocytes 0.7 thou/uL (0.11-0.59); #Neutrophils 3.3 thou/uL (1.40-6.50); %Basophils 0.8 % (0.0-1.0); %Eosinophils 1.1 % (0.0-10.0); %Lymphocytes 21.1 % (21.0-51.0); %Monocytes 13.7 % (0.0-10.0); %Neutrophils 62.9 % (42.0-75.0); Hematocrit 36.6 % (42.0-52.0); Hemoglobin 11.3 g/dL (14.0-18.0); Mean Corpuscular HGB CONC 30.9 g/dL (32.0-36.0); Mean Corpuscular Hemoglobin 31.6 pg (27.0-31.0); Mean Corpuscular Volume 102.2 fl (78.0-98.0); Platelet Count 127 10x3/uL (130-400); RBC Distribution Width 14.7 % (11.5-14.5); Red Blood Cell (RBC) Count 3.58 mill/uL (4.70-6.10); White Blood Cell (WBC) Count 5.3 10x3/uL (4.8-10.8)
[2023-04-17] MEDS ORDERED: Ondansetron PF 4 MG/2 ML Vial ONE (19:18)
[2023-04-17] MEDS ORDERED: Morphine 4 MG/ML VIAL ONE (19:18)
[2023-04-17 19:23] LABS: ALT (SGPT) Less than 7 U/L (8-55); AST (SGOT) 20 U/L (5-34); Albumin 4.4 g/dL (3.5-5.0); Alkaline Phosphatase 78 U/L (40-110); Anion Gap 14 mmol/L (10-20); BUN (Urea Nitrogen) 17 mg/dL (8.4-25.7); Bilirubin, Total 1.2 mg/dL (0.2-1.2); Calc. Creatinine Clearance 0 mL/min (70-130); Calcium 9.5 mg/dL (7.8-10.44); Carbon Dioxide 22 mmol/L (22-29); Chloride 108 mmol/L (98-107); Estimated GFR 55; Globulin 3.4 g/dL (2.4-3.5); Glucose 117 mg/dL (70-105); Potassium 3.6 mmol/L (3.5-5.1); Protein, Total 7.8 g/dL (6.0-8.3); Sodium 140 mmol/L (136-145)
[2023-04-17 20:32] LABS: Bacteria/HPF None Seen HPF (None Seen); Bilirubin Negative (Negative); Blood, Urine Negative (Negative); CAUTI Indications for Culture Alt mental st,lethar; Clarity Clear (Clear); Glucose, Urine (Dipstick) Normal (Negative); Ketone, Urine Negative (Negative); Leukocyte Negative Leu/uL (Negative); Nitrite Negative (Negative); Protein, Urine (Dipstick) 10 mg/dL (Neg-Trace); RBC/HPF 0-3 HPF (0-3); Specific Gravity, Urine 1.029 (1.002-1.036); Squamous Epithelial None Seen HPF (0-3); Urobilinogen Normal mg/dL (Less than 2); WBC/HPF 0-3 HPF (0-3); pH, Urine 5.5 (5.0-9.0)
[2023-04-17 20:39] LABS: Urine Culture Reflex No No
== END 2023-04-17 21:53 | disposition home or self-care (01) ==
LOC: ERS 17:27
DX: R10.13 Epigastric pain (principal); I11.0 Hypertensive heart disease with heart failure; I50.9 Heart failure, unspecified; J44.9 Chronic obstructive pulmonary disease, unspecified; F17.290 Nicotine dependence, other tobacco product, uncomplicated; Z79.899 Other long term (current) drug therapy; Z20.822 Contact with and (suspected) exposure to COVID-19; Z79.01 Long term (current) use of anticoagulants
CPT/HCPCS: 36415; 71046; 80053; 81001; 83690; 83880; 84484; 85025; 87635; 93005; 96374; 96375; J2270; J2405

== ENCOUNTER 2023-05-02 16:12 | Emergency (ER) | payer MEDICARE ==
[2023-05-02 16:46] LABS: #Eosinphils 0.1 thou/uL (0.0-0.7); #Monocytes 0.6 thou/uL (0.11-0.59); #Neutrophils 2.8 thou/uL (1.40-6.50); %Basophils 0.7 % (0.0-1.0); %Eosinophils 1.2 % (0.0-10.0); %Lymphocytes 18.1 % (21.0-51.0); %Monocytes 14.4 % (0.0-10.0); %Neutrophils 65.4 % (42.0-75.0); Hematocrit 35.1 % (42.0-52.0); Hemoglobin 11.2 g/dL (14.0-18.0); Mean Corpuscular HGB CONC 31.9 g/dL (32.0-36.0); Mean Corpuscular Hemoglobin 32.2 pg (27.0-31.0); Mean Corpuscular Volume 100.9 fl (78.0-98.0); Mean Platelet Volume 11.3 fL (7.4-10.4); Platelet Count 116 10x3/uL (130-400); RBC Distribution Width 14.5 % (11.5-14.5); Red Blood Cell (RBC) Count 3.48 mill/uL (4.70-6.10); White Blood Cell (WBC) Count 4.3 10x3/uL (4.8-10.8)
[2023-05-02 17:06] LABS: ALT (SGPT) Less than 7 U/L (8-55); AST (SGOT) 23 U/L (5-34); Albumin 4.4 g/dL (3.5-5.0); Alkaline Phosphatase 79 U/L (40-110); Anion Gap 12 mmol/L (10-20); BUN (Urea Nitrogen) 16 mg/dL (8.4-25.7); Bilirubin, Total 0.9 mg/dL (0.2-1.2); Calc. Creatinine Clearance 0 mL/min (70-130); Calcium 9.4 mg/dL (7.8-10.44); Carbon Dioxide 20 mmol/L (22-29); Chloride 109 mmol/L (98-107); Estimated GFR 57; Globulin 3.2 g/dL (2.4-3.5); Glucose 137 mg/dL (70-105); Lipase 22 U/L (8-78); Potassium 3.2 mmol/L (3.5-5.1); Protein, Total 7.6 g/dL (6.0-8.3); Sodium 138 mmol/L (136-145)
[2023-05-02 17:08] LABS: Troponin I 0.023 ng/mL (< 0.028)
[2023-05-02] MEDS ORDERED: Morphine 4 MG/ML VIAL ONE (17:16)
== END 2023-05-02 18:05 | disposition home or self-care (01) ==
LOC: ERS 16:12
DX: R10.13 Epigastric pain (principal); I11.0 Hypertensive heart disease with heart failure; I50.9 Heart failure, unspecified; J44.9 Chronic obstructive pulmonary disease, unspecified; F17.210 Nicotine dependence, cigarettes, uncomplicated; Z79.01 Long term (current) use of anticoagulants; Z79.82 Long term (current) use of aspirin; Z79.899 Other long term (current) drug therapy
CPT/HCPCS: 36415; 71045; 80053; 83690; 84484; 85025; 93005; 96374; J2270

== ENCOUNTER 2023-05-16 14:33 | Emergency (ER) | payer MEDICARE ==
[2023-05-16 15:45] LABS: #Eosinphils 0.1 thou/uL (0.0-0.7); #Monocytes 0.6 thou/uL (0.11-0.59); #Neutrophils 3.3 thou/uL (1.40-6.50); %Basophils 0.6 % (0.0-1.0); %Eosinophils 1.5 % (0.0-10.0); %Lymphocytes 21.5 % (21.0-51.0); %Monocytes 11.5 % (0.0-10.0); %Neutrophils 64.1 % (42.0-75.0); Hematocrit 38.1 % (42.0-52.0); Hemoglobin 11.7 g/dL (14.0-18.0); Mean Corpuscular HGB CONC 30.7 g/dL (32.0-36.0); Mean Corpuscular Hemoglobin 31.7 pg (27.0-31.0); Mean Corpuscular Volume 103.3 fl (78.0-98.0); Platelet Count 130 10x3/uL (130-400); RBC Distribution Width 13.8 % (11.5-14.5); Red Blood Cell (RBC) Count 3.69 mill/uL (4.70-6.10); White Blood Cell (WBC) Count 5.2 10x3/uL (4.8-10.8)
[2023-05-16 16:07] LABS: ALT (SGPT) 9 U/L (8-55); AST (SGOT) 23 U/L (5-34); Albumin 4.3 g/dL (3.5-5.0); Alkaline Phosphatase 86 U/L (40-110); Anion Gap 12 mmol/L (10-20); BUN (Urea Nitrogen) 17 mg/dL (8.4-25.7); Calc. Creatinine Clearance 0 mL/min (70-130); Calcium 9.4 mg/dL (7.8-10.44); Carbon Dioxide 24 mmol/L (22-29); Chloride 107 mmol/L (98-107); Estimated GFR 62; Globulin 3.3 g/dL (2.4-3.5); Glucose 136 mg/dL (70-105); Lipase 23 U/L (8-78); Potassium 3.9 mmol/L (3.5-5.1); Protein, Total 7.6 g/dL (6.0-8.3); Sodium 139 mmol/L (136-145)
[2023-05-16 16:10] LABS: Troponin I 0.016 ng/mL (< 0.028)
[2023-05-16] MEDS ORDERED: Morphine 4 MG/ML VIAL ONE (16:41)
== END 2023-05-16 17:46 | disposition home or self-care (01) ==
LOC: ERS 14:33
DX: R10.13 Epigastric pain (principal); I11.0 Hypertensive heart disease with heart failure; I50.9 Heart failure, unspecified; J44.9 Chronic obstructive pulmonary disease, unspecified; F17.290 Nicotine dependence, other tobacco product, uncomplicated; Z79.01 Long term (current) use of anticoagulants; Z79.82 Long term (current) use of aspirin; Z79.899 Other long term (current) drug therapy
CPT/HCPCS: 36415; 71045; 80053; 83690; 83880; 84484; 85025; 93005; 96374; J2270

== ENCOUNTER 2023-05-21 23:41 | Emergency (ER) | payer MEDICARE ==
[2023-05-22 00:12] LABS: #Basophils 0.1 thou/uL (0.0-0.2); #Eosinphils 0.1 thou/uL (0.0-0.7); #Monocytes 0.9 thou/uL (0.11-0.59); #Neutrophils 5.5 thou/uL (1.40-6.50); %Basophils 0.6 % (0.0-1.0); %Lymphocytes 18.7 % (21.0-51.0); %Monocytes 10.5 % (0.0-10.0); %Neutrophils 68.6 % (42.0-75.0); Hematocrit 40.7 % (42.0-52.0); Hemoglobin 12.8 g/dL (14.0-18.0); Mean Corpuscular HGB CONC 31.4 g/dL (32.0-36.0); Mean Corpuscular Hemoglobin 31.4 pg (27.0-31.0); Mean Platelet Volume 11.5 fL (7.4-10.4); Platelet Count 145 10x3/uL (130-400); RBC Distribution Width 13.6 % (11.5-14.5); Red Blood Cell (RBC) Count 4.07 mill/uL (4.70-6.10); White Blood Cell (WBC) Count 8.1 10x3/uL (4.8-10.8)
[2023-05-22 00:22] LABS: ALT (SGPT) 10 U/L (8-55); AST (SGOT) 31 U/L (5-34); Alkaline Phosphatase 88 U/L (40-110); Anion Gap 13 mmol/L (10-20); BUN (Urea Nitrogen) 20 mg/dL (8.4-25.7); Bilirubin, Total 0.6 mg/dL (0.2-1.2); Calc. Creatinine Clearance 0 mL/min (70-130); Calcium 9.6 mg/dL (7.8-10.44); Carbon Dioxide 20 mmol/L (22-29); Chloride 109 mmol/L (98-107); Estimated GFR 51; Globulin 3.8 g/dL (2.4-3.5); Glucose 160 mg/dL (70-105); Potassium 3.9 mmol/L (3.5-5.1); Protein, Total 7.8 g/dL (6.0-8.3); Sodium 138 mmol/L (136-145)
[2023-05-22 00:26] LABS: Troponin I 0.023 ng/mL (< 0.028)
[2023-05-22] MEDS ORDERED: Morphine 4 MG/ML VIAL ONE (01:30)
[2023-05-22] MEDS ORDERED: Ondansetron PF 4 MG/2 ML Vial ONE (01:30)
== END 2023-05-22 02:54 | disposition home or self-care (01) ==
LOC: ERS 23:41
DX: R10.13 Epigastric pain (principal); R07.2 Precordial pain; G89.29 Other chronic pain; I11.0 Hypertensive heart disease with heart failure; I50.9 Heart failure, unspecified; J44.9 Chronic obstructive pulmonary disease, unspecified; F17.220 Nicotine dependence, chewing tobacco, uncomplicated; Z79.82 Long term (current) use of aspirin; Z79.01 Long term (current) use of anticoagulants; Z79.899 Other long term (current) drug therapy
CPT/HCPCS: 71045; 80053; 84484; 85025; 93005; 96374; 96375; J2270; J2405

== ENCOUNTER 2023-06-01 20:01 | Emergency (ER) | payer MEDICARE ==
[2023-06-01 21:02] LABS: #Eosinphils 0.1 thou/uL (0.0-0.7); #Monocytes 0.7 thou/uL (0.11-0.59); #Neutrophils 3.7 thou/uL (1.40-6.50); %Basophils 0.5 % (0.0-1.0); %Eosinophils 1.7 % (0.0-10.0); %Lymphocytes 24.9 % (21.0-51.0); %Monocytes 11.1 % (0.0-10.0); %Neutrophils 61.5 % (42.0-75.0); Hematocrit 39.1 % (42.0-52.0); Hemoglobin 12.9 g/dL (14.0-18.0); Mean Corpuscular Hemoglobin 31.2 pg (27.0-31.0); Mean Corpuscular Volume 94.4 fl (78.0-98.0); Mean Platelet Volume 11.8 fL (7.4-10.4); Platelet Count 149 10x3/uL (130-400); RBC Distribution Width 13.3 % (11.5-14.5); Red Blood Cell (RBC) Count 4.14 mill/uL (4.70-6.10); White Blood Cell (WBC) Count 6.1 10x3/uL (4.8-10.8)
[2023-06-01] MEDS ORDERED: Morphine 4 MG/ML VIAL ONE (21:09)
[2023-06-01] MEDS ORDERED: Aspirin 325 MG TAB ONE (21:09)
[2023-06-01 21:14] LABS: INR-International Normal Ratio 1.8; PTT 38.1 sec (22.9-36.1); Prothrombin Time 21.5 sec (12.0-14.7)
[2023-06-01 21:29] LABS: Troponin I 0.016 ng/mL (< 0.028)
[2023-06-01 22:22] LABS: Chloride 110 mmol/L (98-107); Potassium 3.6 mmol/L (3.5-5.1); Sodium 136 mmol/L (136-145)
[2023-06-01 22:23] LABS: Globulin 3.5 g/dL (2.4-3.5); Glucose 185 mg/dL (70-105); Protein, Total 7.5 g/dL (6.0-8.3)
[2023-06-01 22:25] LABS: Anion Gap 14 mmol/L (10-20); Bilirubin, Total 0.8 mg/dL (0.2-1.2); Carbon Dioxide 16 mmol/L (22-29)
[2023-06-01 22:26] LABS: Alkaline Phosphatase 84 U/L (40-110)
[2023-06-01 22:27] LABS: BUN (Urea Nitrogen) 15 mg/dL (8.4-25.7); Calc. Creatinine Clearance 0 mL/min (70-130); Estimated GFR 65
[2023-06-01 22:28] LABS: AST (SGOT) 40 U/L (5-34)
[2023-06-01 22:29] LABS: ALT (SGPT) 12 U/L (8-55)
[2023-06-01 22:38] LABS: Bacteria/HPF None Seen HPF (None Seen); Bilirubin Negative (Negative); Blood, Urine Negative (Negative); CAUTI Indications for Culture Alt mental st,lethar; Clarity Clear (Clear); Glucose, Urine (Dipstick) Normal (Negative); Ketone, Urine Negative (Negative); Leukocyte Negative Leu/uL (Negative); Nitrite Negative (Negative); Protein, Urine (Dipstick) Negative (Neg-Trace); RBC/HPF None Seen HPF (0-3); Specific Gravity, Urine 1.018 (1.002-1.036); Squamous Epithelial None Seen HPF (0-3); Urobilinogen Normal mg/dL (Less than 2); WBC/HPF 0-3 HPF (0-3); pH, Urine 5.5 (5.0-9.0)
[2023-06-01 22:54] LABS: Urine Culture Reflex No No
== END 2023-06-01 23:38 | disposition home or self-care (01) ==
LOC: ERS 20:01
DX: R07.2 Precordial pain (principal); M54.50 Low back pain, unspecified; M79.604 Pain in right leg; F17.220 Nicotine dependence, chewing tobacco, uncomplicated; I11.0 Hypertensive heart disease with heart failure; I50.9 Heart failure, unspecified; J44.9 Chronic obstructive pulmonary disease, unspecified; Z79.82 Long term (current) use of aspirin; Z79.899 Other long term (current) drug therapy; Z79.01 Long term (current) use of anticoagulants
CPT/HCPCS: 36415; 71045; 80053; 81001; 84484; 85025; 85610; 85730; 93005; 96374; J2270

== ENCOUNTER 2024-04-08 04:26 | Emergency (ER) | payer MEDICARE ==
[2024-04-08 05:01] LABS: #Basophils 0.05 10x3/uL (0.0-0.2); %Basophils 0.9 % (0.0-1.0); %Eosinophils 1.4 % (0.0-10.0); %Monocytes 13.8 % (0.0-10.0); %Neutrophils 60.2 % (42.0-75.0); Hematocrit 34.8 % (42.0-52.0); Hemoglobin 11.2 g/dL (14.0-18.0); Mean Corpuscular HGB CONC 32.2 g/dL (32.0-36.0); Mean Corpuscular Hemoglobin 29.5 pg (27.0-31.0); Mean Corpuscular Volume 91.6 fL (78.0-98.0); Mean Platelet Volume 11.5 fL (7.4-10.4); Platelet Count 144 10x3/uL (130-400); RBC Distribution Width 14.5 % (11.5-14.5)
[2024-04-08 05:23] LABS: ALT (SGPT) 5 U/L (8-55); AST (SGOT) 27 U/L (5-34); Albumin 3.6 g/dL (3.4-4.8); Alkaline Phosphatase 94 U/L (40-110); Anion Gap 12 mmol/L (10-20); BUN (Urea Nitrogen) 20 mg/dL (8.4-25.7); Bilirubin, Total 0.4 mg/dL (0.2-1.2); Calc. Creatinine Clearance 0 mL/min (70-130); Calcium 9.3 mg/dL (7.8-10.44); Carbon Dioxide 18 mmol/L (23-31); Chloride 115 mmol/L (98-107); Estimated GFR 59; Globulin 4.2 g/dL (2.4-3.5); Glucose 136 mg/dL (80-115); INR-International Normal Ratio 1.5; PTT 34.6 sec (22.9-36.1); Potassium 4.6 mmol/L (3.5-5.1); Protein, Total 7.8 g/dL (5.8-8.1); Prothrombin Time 18.2 sec (12.0-14.7); Sodium 140 mmol/L (136-145)
[2024-04-08] MEDS ORDERED: Acetaminophen 500 MG TAB ONE ×2 (05:37→05:41)
[2024-04-08] MEDS ORDERED: Ondansetron PF 4 MG/2 ML Vial ONE (06:11)
[2024-04-08] MEDS ORDERED: Morphine 2 MG/ML VIAL ONE (06:11)
[2024-04-08] MEDS ORDERED: Iopamidol 370 76% 100 ML VIAL ONE (07:00)
[2024-04-08] MEDS ORDERED: Aspirin Chewable 81 MG TAB ONE (07:10)
== END 2024-04-08 08:20 | disposition short-term general hospital (02) ==
LOC: ERS 04:26
DX: G45.9 Transient cerebral ischemic attack, unspecified (principal); I11.0 Hypertensive heart disease with heart failure; I50.9 Heart failure, unspecified; E11.9 Type 2 diabetes mellitus without complications; F17.220 Nicotine dependence, chewing tobacco, uncomplicated; J44.9 Chronic obstructive pulmonary disease, unspecified; W19.XXXA Unspecified fall, initial encounter; R29.700 NIHSS score 0
CPT/HCPCS: 70450; 70496; 70498; 80053; 82962; 85025; 85610; 85730; 93005; J2272; J2405; 36416; 96374; 96375

== ENCOUNTER 2024-07-25 12:35 | Emergency (ER) | payer OTHER ==
[2024-07-25] MEDS ORDERED: Iopamidol-370 76% 500 ML MDV (1 ML CHARGE) ONE (14:14)
[2024-07-25] MEDS ORDERED: Mag-Al 1200 mg/1200 mg/30 ML UDCUP ONE (14:54)
[2024-07-25] MEDS ORDERED: Lidocaine Viscous Sol 2% 15 ml UD Cup ONE (14:54)
[2024-07-25 15:12] LABS: #Basophils 0.04 10x3/uL (0.0-0.2); %Basophils 0.7 % (0.0-1.0); %Eosinophils 0.5 % (0.0-10.0); %Lymphocytes 15.4 % (21.0-51.0); %Monocytes 9.5 % (0.0-10.0); %Neutrophils 73.7 % (42.0-75.0); Hemoglobin 11.4 g/dL (14.0-18.0); Mean Corpuscular Hemoglobin 26.5 pg (27.0-31.0); Mean Corpuscular Volume 88.4 fL (78.0-98.0); Platelet Count 137 10x3/uL (130-400); RBC Distribution Width 16.6 % (11.5-14.5)
[2024-07-25 15:31] LABS: Magnesium 1.4 mg/dL (1.6-2.6)
[2024-07-25 15:32] LABS: ALT (SGPT) 8 U/L (Less than 45); AST (SGOT) 39 U/L (11-34); Albumin 3.6 g/dL (3.1-4.5); Alkaline Phosphatase 95 U/L (40-110); Anion Gap 13 mmol/L (10-20); BUN (Urea Nitrogen) 15 mg/dL (8.4-25.7); Bilirubin, Total 0.9 mg/dL (0.3-1.2); Calc. Creatinine Clearance 0 mL/min (70-130); Calcium 9.3 mg/dL (7.8-10.44); Carbon Dioxide 19 mmol/L (23-31); Chloride 109 mmol/L (98-107); Estimated GFR 72; Globulin 4.5 g/dL (2.4-3.5); Glucose 147 mg/dL (80-115); Lipase 22 U/L (8-78); Potassium 3.8 mmol/L (3.5-5.1); Protein, Total 8.1 g/dL (5.8-8.1); Sodium 137 mmol/L (136-145)
[2024-07-25 15:37] LABS: Troponin I 0.035 ng/mL (< 0.028)
[2024-07-25] MEDS ORDERED: Sucralfate 1 GM/10 ML UDCUP ONE (18:08)
[2024-07-25] MEDS ORDERED: fentaNYL 50 mcg/mL 1 mL Vial ONE (18:09)
[2024-07-25] MEDS ORDERED: Pantoprazole 40 MG VIAL ONE (18:09)
[2024-07-25] MEDS ORDERED: Famotidine/PF 20 mg/2ml Vial ONE (18:09)
[2024-07-25] MEDS ORDERED: Acetaminophen 500 MG TAB ONE (18:09)
== END 2024-07-25 19:20 | disposition home or self-care (01) ==
LOC: ERS 12:35
DX: R10.13 Epigastric pain (principal); I11.0 Hypertensive heart disease with heart failure; I50.9 Heart failure, unspecified; J44.9 Chronic obstructive pulmonary disease, unspecified; E11.9 Type 2 diabetes mellitus without complications; F17.220 Nicotine dependence, chewing tobacco, uncomplicated; Z86.73 Personal history of transient ischemic attack (TIA), and cerebral infarction without residual deficits
CPT/HCPCS: 71045; 74177; 80053; 83690; 83735; 83880; 84484; 85025; 93005; J2470; J3010; J3490; 36415; 96374; 96375; Q9967